=== PATIENT | male | born 1970 | race Hispanic/Latino ===

== ENCOUNTER 2018-02-12 17:11 | Inpatient (IN) | payer SELFPAY ==
[~2018-02-12] VITALS: Ht 165.1 cm; Wt 127.0 kg
[2018-02-12] MEDS ORDERED: ACETAMINOPHEN 325 MG TAB ONE (17:44)
[2018-02-12 18:34] LABS: BASOPHILS % (AUTO) 0.4 % (0.0-5.0); EOSINOPHILS % (AUTO) 0.4 % (0.0-8.0); HEMATOCRIT 40.3 % (42-54); LYMPHOCYTES % (AUTO) 13.9 % (21.0-51.0); MEAN CORPUSCULAR HGB CONC 35.6 g/dL (32.0-36.0); MONOCYTES % (AUTO) 6.7 % (3.0-13.0); NEUTROPHILS % (AUTO) 78.6 % (40.0-77.0); PLATELET COUNT (AUTO) 186 K/uL (130-400); RED CELL DISTRIBUTION WIDTH 13.1 % (11.0-15.5); WHITE BLOOD COUNT (AUTO) 10.6 K/uL (4.8-10.8)
[2018-02-12 18:53] LABS: ALBUMIN 2.9 g/dL (3.5-5.0); BILIRUBIN,TOTAL 1.2 mg/dL (0.2-1.0); CREATININE 1.4 mg/dL (0.5-1.5); POTASSIUM 4.3 mmol/L (3.5-5.1); TOTAL PROTEIN, SERUM 8.1 g/dL (6.0-8.3)
[2018-02-12 19:01] LABS: APPEARANCE,URINE Cloudy (CLEAR); BILIRUBIN,URINE Moderate (NEGATIVE); COLOR,URINE Orange (YELLOW); GLUCOSE, URINE (UA) >=1000 mg/dL (NEGATIVE); KETONES,URINE Trace mg/dL (NEGATIVE); LEUKOCYTE ESTERASE ,URINE Small (NEGATIVE); NITRATE,URINE Positive (NEGATIVE); OCCULT BLOOD,URINE Small (NEGATIVE); PROTEIN,URINE 300 (NEGATIVE)
[2018-02-12 19:16] LABS: BACTERIA,URINE Many /HPF (None Seen); YEAST,URINE BUDDING Few /HPF (None Seen)
[2018-02-12] MEDS ORDERED: CEFTRIAXONE SODIUM 1 GM ONE (20:27)
[2018-02-12 21:25] VITALS: BP 98/60
[2018-02-12] MEDS: SODIUM CHLORIDE 0.9% 1000ML 1,000 ML IV SCH (21:58)
[2018-02-12] MEDS ORDERED: LISI-613 PO (23:39)
[2018-02-12] MEDS ORDERED: GLIP1TAB6 PO (23:39)
[2018-02-12] MEDS ORDERED: ATOR20TA65 PO (23:39)
[2018-02-13] VITALS: BP 95/57
[2018-02-13] MEDS: SODIUM CHLORIDE 0.9% 1000ML 1,000 ML IV SCH ×2 (02:26→21:30)
[2018-02-13 04:00] VITALS: BP 104/68
[2018-02-13 04:57] LABS: HEMATOCRIT 35.7 % (42-54); MEAN CORPUSCULAR HEMOGLOBIN 29.4 pg (27.0-33.0); MEAN CORPUSCULAR HGB CONC 35.2 g/dL (32.0-36.0); MEAN CORPUSCULAR VOLUME 83.4 fL (79-99); NUCLEATED RED BLOOD CELLS 0.1 % (0.0-0.19); PLATELET COUNT (AUTO) 138 K/uL (130-400); RED BLOOD CELL COUNT(AUTO) 4.28 MIL/uL (4.50-6.20); RED CELL DISTRIBUTION WIDTH 12.9 % (11.0-15.5); WHITE BLOOD COUNT (AUTO) 9.5 K/uL (4.8-10.8)
[2018-02-13 05:09] LABS: CREATININE 1.2 mg/dL (0.5-1.5); POTASSIUM 4.2 mmol/L (3.5-5.1)
[2018-02-13] MEDS: INSULIN HUMULIN R 100 UNIT/ML 3ML SQ SCH ×5 (06:41→21:00)
[2018-02-13 08:00] VITALS: BP 104/66
[2018-02-13] MEDS: FAMOTIDINE 20MG TAB 20 MG TAB PO SCH ×2 (09:02→22:44)
[2018-02-13] MEDS: ENOXAPARIN SODIUM 30 MG/0.3 ML SQ SCH (09:02)
[2018-02-13 12:00] VITALS: BP 108/62
[2018-02-13 16:00] VITALS: BP 125/77
[2018-02-13 19:00] VITALS: BP 146/73
[2018-02-13] MEDS ORDERED: METF-446 PO (23:05)
[2018-02-14] VITALS: BP 112/70
[2018-02-14 04:00] VITALS: BP 113/71
[2018-02-14 05:36] LABS: CREATININE 1.1 mg/dL (0.5-1.5); POTASSIUM 3.8 mmol/L (3.5-5.1)
[2018-02-14] MEDS: INSULIN HUMULIN R 100 UNIT/ML 3ML SQ SCH ×2 (06:15→11:30)
[2018-02-14 07:00] VITALS: BP 116/67
[2018-02-14] MEDS ORDERED: METFORMIN HCL 500 MG TABLET PO SCH (08:00)
[2018-02-14] MEDS: ENOXAPARIN SODIUM 30 MG/0.3 ML SQ SCH (09:00)
[2018-02-14] MEDS: SODIUM CHLORIDE 0.9% 1000ML 1,000 ML IV SCH (09:24)
[2018-02-14] MEDS: FAMOTIDINE 20MG TAB 20 MG TAB PO SCH (09:24)
[2018-02-14 11:00] VITALS: BP 123/67
== END 2018-02-14 13:25 | disposition home or self-care (01) | DRG 641 ==
LOC: EDH 17:11 → EDHIP 17:12 → 3DH 21:07
PROVIDERS: ADMIT Internal Medicine; ATTEND Internal Medicine
DX: E87.1 Hypo-osmolality and hyponatremia (principal); B37.49 Other urogenital candidiasis; E11.9 Type 2 diabetes mellitus without complications; Z79.84 Long term (current) use of oral hypoglycemic drugs
CPT/HCPCS: 36415; 71045; 80048; 80053; 81001; 82948; 83605; 83930; 85025; 85027; 87040; 87088; 87804; 93005; J0696; J1650; J1815

== ENCOUNTER → 2023-10-26 | Outpatient (CLI) | payer OTHER ==
[~2023-10-26] MED LIST: METF-446 PO
== END | disposition home or self-care (01) ==
LOC: RAH 09:39
PROVIDERS: ATTEND Internal Medicine Cardiovascular Disease
DX: Z13.6 Encounter for screening for cardiovascular disorders (principal)
CPT/HCPCS: 75571

== ENCOUNTER 2025-03-17 18:02 | Inpatient (IN) | payer OTHER ==
[~2025-03-17] VITALS: Ht 165.1 cm; Wt 127.4 kg
[2025-03-17 18:27] LABS: IMMATURE GRANULOCYTE ABSOLUTE 0.04 K/uL (0-1); NUCLEATED RED BLOOD CELLS 0.0 % (0.0-0.19); PLATELET COUNT (AUTO) 305 K/uL (130-400); RED BLOOD CELL COUNT(AUTO) 4.40 MIL/uL (4.50-6.20); RED CELL DISTRIBUTION WIDTH 12.1 % (11.0-15.5); WHITE BLOOD COUNT (AUTO) 10.1 K/uL (4.8-10.8)
[2025-03-17 18:38] LABS: CREATININE 1.5 mg/dL (0.5-1.3); GLOMERULAR FILTR. RATE CALC 56.0 mL/min (>90); GLUCOSE,RANDOM 210.0 mg/dL (70-105); SODIUM SERUM 136.0 mmol/L (136-145); UREA NITROGEN, BLOOD 39.0 mg/dL (7-18)
[2025-03-17 18:42] LABS: ERYTHROCYTE SEDIMENTATION RATE 67 MM/HR (0-20)
--- NOTE | 2025-03-17 19:47 | ERN ---
General Chief Complaint: Wound Check Stated Complaint: WOUND CHECK Time Seen by MD: 18:05 Time Seen by Midlevel: 18:05 Source: patient History of Present Illness Initial Comments The patient is a 54-year-old male presenting to the emergency department for evaluation of worsening diabetic foot ulcers. The patient reports a chronic ulcer to his left 2nd toe that has progressively worsened. He now has noticed pain to the area and a foul odor. He also has an ulcer to the 5th toe of the right foot. Allergies: Coded Allergies: No Known Drug Allergies (Verified Allergy, Unknown, 02/13/18) Uncoded Allergies: ALMONDS (Allergy, Intermediate, SWELLING, 02/13/18) SWELLING TO THROAT AND TONGUE Home Meds Reported Medications Metformin HCl (Metformin HCl) 1,000 Mg Tablet, 1000 MG PO BIDMEALS, TAB 02/13/18 Past Medical History Past Medical History: Diabetes-Type II Past Surgical History: None ROS Dictation CONSTITUTIONAL: Negative except for HPI HEAD/FACE: Negative except for HPI EENT: Negative except for HPI RESPIRATORY: Negative except for HPI GASTROINTESTINAL/ABDOMINAL: Negative except for HPI GENITOURINARY: Negative except for HPI MUSCULOSKELETAL: Negative except for HPI INTEGUMENTARY: Negative except for HPI NEUROLOGICAL/PSYCH: Negative except for HPI HEMATOLOGIC/LYMPHATIC: Negative except for HPI All Systems Negative, Except as noted above. 13 point review of systems assessed and all negative except for above. Physical Exam Physical Exam Dictation Vital Signs reviewed General Appearance: Alert, oriented x 3, no acute distress, well developed, n ourished. Head and Face: non-traumatic. Eyes: PERRL, pink conjunctivas, eyelid no trauma, anterior chamber with arcus senilis. Ears: Pinnas intact and no signs of trauma or erythema ear canals clear and no discharge TM no erythema Nose: No discharge, no bleeding. Oropharynx: Mouth normal, tongue pink, pharynx clear,no erythema, tonsils no exudates, no abscesses noted, mucous membrane moist Neck: Supple, non-tender, no thyromegaly, no masses, no JVD, no bruits Breast:Deferred Chest:No tenderness, no crepitus, no paradoxical movement, no retractions Lungs:Clear, well-ventilated, symmetric, no rales, no wheezing, no rhonchi, no stridor, good breath sounds bilaterally Heart: Regular rate, regular rhythm, no murmur, no gallops Vascular: no peripheral edema, Abdomen: Soft, positive bowel sounds, nondistended, no guarding, nontender, no rebound, no masses no hepatomegaly, no splenomegaly, no Bernard's sign, no hernias. Rectal: Deferred Genital: Deferred Neurological: Normal speech, motor function intact, sensory function intact Musculoskeletal: Neck nontender, full range of motion, back nontender, full range of motion, Extremities: nontender, full range of motion Skin: There is an ulcer with foul older to the left 2nd toe and the right 5th toe with surrounding erythema and foul odor Lymphatic: Deferred Results Laboratory and Microbiology Lab and Micro Result Laboratory Tests Test 03/17/25 18:19 White Blood Count 10.1 K/uL (4.8-10.8) Red Blood Count 4.40 MIL/uL (4.50-6.20) L Hemoglobin 13.4 g/dL (14.0-18.0) L Hematocrit 40.9 % (42-54) L Mean Corpuscular Volume 93.0 fL (79-99) Mean Corpuscular Hemoglobin 30.5 pg (27.0-33.0) Mean Corpuscular Hemoglobin Concent 32.8 g/dL (32.0-36.0) Red Cell Distribution Width 12.1 % (11.0-15.5) Platelet Count 305 K/uL (130-400) Mean Platelet Volume 9.3 fL (7.5-10.5) Immature Granulocyte % (Auto) 0.4 % (0-1) Neutrophils (%) (Auto) 64.1 % (40.0-77.0) Lymphocytes (%) (Auto) 24.7 % (21.0-51.0) Monocytes (%) (Auto) 7.1 % (3.0-13.0) Eosinophils (%) (Auto) 3.0 % (0.0-8.0) Basophils (%) (Auto) 0.7 % (0.0-5.0) Neutrophils # (Auto) 6.5 K/uL (1.8-7.7) Lymphocytes # (Auto) 2.5 K/uL (1.0-4.8) Monocytes # (Auto) 0.7 K/uL (0.1-1.0) Eosinophils # (Auto) 0.30 K/uL (0.00-0.70) Basophils # (Auto) 0.07 K/uL (0.00-0.20) Absolute Immature Granulocyte (auto 0.04 K/uL (0-1) Nucleated Red Blood Cells 0.0 % (0.0-0.19) Erythrocyte Sedimentation Rate 67 MM/HR (0-20) H Sodium Level 136 mmol/L (136-145) Potassium Level 4.6 mmol/L (3.5-5.1) Chloride Level 100 mmol/L (101-111) L Carbon Dioxide Level 25 mmol/L (21-32) Blood Urea Nitrogen 39 mg/dL (7-18) H Creatinine 1.5 mg/dL (0.5-1.3) H Glomerular Filtration Rate Calc 56 mL/min (>90) Random Glucose 210 mg/dL (70-105) H Lactic Acid Level 1.8 mmol/L (0.8-2.5) Total Calcium 8.8 mg/dL (8.5-10.1) Procalcitonin < 0.05 ng/mL (0.05-0.5) L Labs Reviewed?: Yes MDM MDM: Differential diagnosis: Osteomyelitis, uncontrolled diabetes, dehydration Rationale: Tests considered and ordered secondary to shared decision making include: Previous outside records reviewed: Old ER visits. Risk of complication and/or morbidity or mortality of patient management: None Medications-Per medication reconciliation Need for hospitalization: Patient does meet criteria for hospitalization. Need for emergency major/minor surgery: No There are no social concerns with this patient. Prescription drug management Prescriptions will include symptomatic care Patient's prior external medical records from other ER visits were reviewed by me as indicated. Prior testing and results from previous visits were reviewed. Prior tests were taken into account with medical decision making and resource utilization, independent historian/historians were used to obtain complete medic al history. I independently interpreted the test that were performed, results were reviewed by me and considered findings on radiology if ordered. Medical management and examination interpretation discussions were had by me with other qualified healthcare professionals as indicated for the patient's care. ED Course Orders Procedure Category Date Status Time Toe(S) 2+Vws Lt RAD 03/17/25 Resulted 18:09 Toe(S) 2+Vws Rt RAD 03/17/25 Resulted 18:09 Cbc With Differential LAB 03/17/25 Complete 18:09 Basic Metabolic Panel LAB 03/17/25 Complete 18:09 Lactic Acid LAB 03/17/25 Complete 18:09 Procalcitonin LAB 03/17/25 Complete 18:09 Erythrocyte Sed Rate LAB 03/17/25 Complete 18:09 Vancomycin Protocol PHA 03/17/25 In Process (Vancomycin Protocol 22:30 Cefepime Hcl 1 Gm PHA 03/17/25 In Process Vial (Maxipime 1 Gm Vi 22:30 Admit Orders ADM 03/17/25 Transmitted 22:11 Vancomycin Trough LAB 03/21/25 Verified 22:00 Vancomycin 2gm/500 Ml PHA 03/17/25 In Process Bag (Vancomycin 2g 23:00 Current Medications Medications (Trade) Dose Ordered Sig/Roula Route PRN Reason Start Time Stop Time Status Last Admin Dose Admin Cefepime HCl (MAXipime 1 GM vial) 1 gm Q12H IVPB 03/17/25 22:30 03/27/25 22:29 Vancomycin HCl 500 ml @ 125 mls/hr Q24H IV 03/17/25 23:00 03/27/25 22:59 Vancomycin HCl (Vancomycin Protocol) 1 each AD IV 03/17/25 22:30 03/31/25 22:29 Vital Signs Date Time Temp Pulse Resp B/P (MAP) Pulse Ox O2 Delivery O2 Flow Rate FiO2 03/17/25 18:04 99.1 87 16 135/69 97 Room Air DX & DISP Disposition: Inpatient Departure Impression: Primary Impression: Diabetic foot ulcer Additional Impressions: Uncontrolled diabetes mellitus with hyperglycemia, BILLY (acute kidney injury) Condition: Stable Referrals: SELF,REFERRAL (PCP) I have reviewed the case, and I agree with, Diagnosis and Plan I performed the substantive portion of the visit. I have reviewed and personally made and approve the management plan that is documented in the note by myself or the SONY. I acknowledge for responsibility for the patient's management plan. BONILLA MASON PAC Mar 17, 2025 19:47
--- NOTE | 2025-03-17 22:12 | HP ---
History of Present Illness Reason for Visit: Wounds History of Present Illness Mr. Gifford is a 54-year-old male that was seen and examined today on 03/17/2025. Patient is a good historian of personal health Patient reports that he came to the emergency department with a chief complaint of wounds. Onset is chronic. Duration is constant. Character is described as open and odorous to bilateral feet. Left foot 2nd toe, right foot 5th toe. There was no alleviating factors. Symptoms are aggravated with walking. Patient denies any associated fever or chills. Today in the emergency department CBC unremarkable, glucose 210 mg/dL, creatinine 1.5, BUN 39, no urinalysis has been collected or sent to lab, bilateral x-rays of bilateral feet show right foot arthritis. Additionally patient did not have any fever, tachycardia, tachypnea are leukocytosis FR he did not meet sepsis criteria. Past Medical History Patient History: Carcinomas SISTER Cardiovascular disease MOTHER Diabetes mellitus MOTHER Hypertension MOTHER ADDITIONAL PAST MEDICAL HISTORY: [Diabetes mellitius type2] SOCIAL HISTORY: [Negative for smoking, alcohol use, drug use. Patient lives with a sister, Dolores Gifford. Patient is typically independent of all his ADLs. Patient denies difficulty pain is bills.] SURGICAL HISTORY: [Denies] Review of Systems General: No Fever, No Chills, No Night Sweats, No Fatigue, No Malaise, No Appetite, No Other HEENT: No Head Aches, No Visual Changes, No Eye Pain, No Ear Pain, No Dysphasia, No Sinus Congestion, No Post Nasal Drip, No Sore Throat, No Other Pulmonary: No Dyspnea, No Cough, No Pleuritic Chest Pain, No Other Cardiovascular: No: Chest Pain, Palpitations, Orthopnea, Paroxysmal Noc. Dyspnea, Edema, Lt Headedness, Other Gastrointestinal: No: Nausea, Vomiting, Abdominal Pain, Diarrhea, Constipation, Melena, Hematochezia, Other Genitourinary: No Dysuria, No Frequency, No Incontinence, No Hematuria, No Retention, No Other Musculoskeletal: No: other, neck pain, shoulder pain, arm pain, back pain, hand pain, leg pain, foot pain Skin: No Urticaria, No Rash; Other (Wounds) Neurological: No: Weakness, Numbness, Incoordination, Change in speech, Confusion, Seizures, Other Allergies: Coded Allergies: No Known Drug Allergies (Verified Allergy, Unknown, 02/13/18) Uncoded Allergies: ALMONDS (Allergy, Intermediate, SWELLING, 02/13/18) SWELLING TO THROAT AND TONGUE Scheduled Metformin HCl (Metformin HCl), 1,000 MG PO BIDMEALS, (Reported) Exam Vital Signs Vital Signs Date Time Temp Pulse Resp B/P (MAP) Pulse Ox O2 Delivery O2 Flow Rate FiO2 03/17/25 18:04 99.1 87 16 135/69 97 Room Air General Appearance: Alert, Oriented X3, Cooperative, mild distress HEENT: Atraumatic, EOMI Respiratory: Clear to auscultation, Normal air movement, NL respiratory effort Cardiovascular: Regular rate, Regular rhythm, Normal S1, Normal S2 Abdominal: Normal bowel sounds, Soft, No tenderness Extremities: No edema Skin: Other (Left foot 2nd ray wound, right foot 5th ray wound) Neuro: Normal gait, Normal speech, Strength at 5/5 X4 ext, Sensation intact, Cranial nerves 3-12 NL Psych/Mental Status: Mental status NL, Mood NL, Thoughts/Content NL Assessment/Plan ASSESSMENT: [ Diabetic foot ulcers to bilateral feet, left foot 2nd ray, right foot 5th ray, POA Uncontrolled Diabetes mellitius type2, POA CKD stage IIIB, POA Right foot arthritis, POA] PLAN: [ Admit patient to medical floor as inpatient status. Place patient on telemetry monitoring. Consult Wound Care Service for evaluation and further recommendations. For now wet-to-dry dressings. Obtain wound cultures, follow up with the results Start empiric antibiotic therapy with Zosyn Check glucometer a.c. and HS Humulin R sliding scale Hemoglobin A1c in a.m. One thousand eight hundred ADA diet Avoid nephrotoxic agents when possible Renally dose all medications when possible Monitor intake and output every shift Weight patient daily As needed analgesia with hydromorphone GI prophylaxis, Protonix DVT prophylaxis, heparin ADVANCED CARE PLANNING 1. Which of the following were discussed? Hospice Care - Yes Therapeutic options - yes Advance Directives - Yes - patient states he does not have any advance directives in place at this time, however his sister can make decisions for him if he becomes unable. Other discussions - patient wishes to remain a full code at this time 2. Discussed with who? Patient 3. Voluntary nature of this service was explained to the patient? Yes 4. Amount of time spent - ___16 minutes____ 5. Reviewed by Physician? (if this service was performed by NPP) Yes This document was generated in part using voice recognition software, occasional wrong word or sound alike substitutions may have occurred due to the inherent limitations of voice recognition software. Read the chart carefully and recognize using context, where the substitutions have occurred. Although every effort was made to edit the content, transcription typist and typing errors may occur ATTESTATION BY PHYSICIAN I have seen and examined the patient. I reviewed the documentation, medical decision making, and treatment plan as noted by the mid-level provider above. I agree with the findings and plan of care. ] RUBEN TOBIN [facility] Mar 17, 2025 22:12
--- NOTE | 2025-03-17 22:13 | HMCIMG ---
EXAM: CR Toes, Right, 3 Views. CLINICAL HISTORY: Rule out osteo right 5th toe COMPARISON: None provided. FINDINGS: BONES: No acute fracture or aggressive appearing osseous lesion. Advanced osteoarthritic changes in the tibiotalar and the intertarsal joints. JOINTS: No dislocation. SOFT TISSUES: The soft tissues are unremarkable. IMPRESSION: Advanced osteoarthritic changes in the tibiotalar and the intertarsal joints. /[place]
--- NOTE | 2025-03-17 22:21 | HMCIMG ---
EXAM: CR Toes, Left, 3 Views. CLINICAL HISTORY: Rule out osteo left 2nd toe. COMPARISON: None provided. FINDINGS: BONES: No acute fracture or aggressive appearing osseous lesion. JOINTS: No dislocation. Advanced osteoarthritic changes involving tibiotalar and intertarsal joints. Plantar spur. SOFT TISSUES: The soft tissues are unremarkable. IMPRESSION: No acute osseous abnormality. Advanced osteoarthritic changes involving tibiotalar and intertarsal joints. Plantar spur. /[place]
[2025-03-17] MEDS ORDERED: VANCOMYCIN PROTOCOL PER PHARMACY IV SCH (22:30)
[2025-03-17] MEDS ORDERED: LACTULOSE 20 GM/30 ML UDCUP PO PRN (23:00)
[2025-03-17 23:01] LABS: IMMATURE GRANULOCYTE ABSOLUTE 0.04 K/uL (0-1); NUCLEATED RED BLOOD CELLS 0.0 % (0.0-0.19); PLATELET COUNT (AUTO) 320 K/uL (130-400); RED BLOOD CELL COUNT(AUTO) 4.58 MIL/uL (4.50-6.20); RED CELL DISTRIBUTION WIDTH 12.1 % (11.0-15.5); WHITE BLOOD COUNT (AUTO) 11.2 K/uL (4.8-10.8)
[2025-03-17 23:14] LABS: CREATININE 1.4 mg/dL (0.5-1.3); GLOMERULAR FILTR. RATE CALC 60.0 mL/min (>90); GLUCOSE,RANDOM 220.0 mg/dL (70-105); PHOSPHORUS 3.3 mg/dL (2.5-4.9); SODIUM SERUM 135.0 mmol/L (136-145); UREA NITROGEN, BLOOD 38.0 mg/dL (7-18)
[2025-03-17] MEDS: VANCOMYCIN 2GM/500 ML BAG 500 ML IV SCH (23:27)
[2025-03-18 01:04] LABS: APPEARANCE,URINE CLEAR (CLEAR); GLUCOSE, URINE (UA) >=1000 mg/dL (NEGATIVE); LEUKOCYTE ESTERASE ,URINE 500 Leu/uL (NEGATIVE); NITRATE,URINE NEGATIVE (NEGATIVE); OCCULT BLOOD,URINE NEGATIVE (NEGATIVE)
[2025-03-18 01:08] LABS: ADD UA MICROSCOPIC YES
[2025-03-18 01:09] LABS: SQUAMOUS EPITHELIAL CELL,UR RARE /HPF (0-2)
[2025-03-18] MEDS: ZOSYN 3.375GM +NS 50ML IV SCH (03:05)
--- NOTE | 2025-03-18 03:07 | NUR ---
PATIENT DID NOT BRING HOME MEDICATIONS
[2025-03-18 03:52] VITALS: O2SAT 98
[2025-03-18 04:00] VITALS: BP 138/71; PULSE 77; RESP 18; TEMP 98.1
[2025-03-18 05:39] LABS: CREATININE 1.3 mg/dL (0.5-1.3); GLOMERULAR FILTR. RATE CALC 66.0 mL/min (>90); GLUCOSE,RANDOM 243.0 mg/dL (70-105); PHOSPHORUS 2.8 mg/dL (2.5-4.9); SODIUM SERUM 135.0 mmol/L (136-145); UREA NITROGEN, BLOOD 34.0 mg/dL (7-18)
[2025-03-18 07:54] LABS: NUCLEATED RED BLOOD CELLS 0.0 % (0.0-0.19); PLATELET COUNT (AUTO) 306.0 K/uL (130-400); RED BLOOD CELL COUNT(AUTO) 4.21 MIL/uL (4.50-6.20); RED CELL DISTRIBUTION WIDTH 12.2 % (11.0-15.5); WHITE BLOOD COUNT (AUTO) 8.9 K/uL (4.8-10.8)
--- NOTE | 2025-03-18 13:55 | PN ---
[facility] PROGRESS NOTE Date of Service: Mar 18, 2025 Time of Service: 13:55 SUBJECTIVE: Patient is a 54-year-old male with a past medical history of diabetes mellitus type 2, hyperlipidemia, hypertension who came in complaining of Wounds on 2nd toe of left foot and the big toe toe of right foot. Per the patient he noticed the wounds on Thursday night, patient did not have any associated pain. He tried some home remedies like peroxide, rubbing alcohol and petroleum and then he wrapped it with gauze. On he went to his primary care physician who inform Dr. Romero and Dr. Romero recommended the patient come to the ER. Patient does not have any associated fevers or chills. In the emergency department the CBC was unremarkable, the glucose was at 210 mg/dL, creatinine 1.5, BUN 39, no urinalysis has been collected or sent to lab, bilateral x-rays of bilateral feet show right foot arthritis. Additionally patient did not have any fever, tachycardia, tachypnea are leukocytosis FR he did not meet sepsis criteria. Patient was admitted for bilateral lower extremity wounds. 03/18/2025: Patient was seen in the ER 18 without any family present. Patient was awake alert x3 and in no acute respiratory distress. Patient had delayed capillary refill so we ordered arterial ultrasound of the bilateral lower extremities. Came back normal and his creatinine had improved to 1.3 from 1.5 at time of admission. Urinalysis came back positive so his urine has been sent for culture along with his blood. Patient has been started on Zosyn and vancomycin while we also ordered MRI for bilateral lower extremities. Patient is hyponatremic with sodium at 135, his ESR high at 67. Further treatment is based off on his image findings. REVIEW OF SYSTEMS CONSTITUTIONAL: Denies fevers, chills, or night sweats. No unintentional weight loss reported. NEUROLOGICAL: Headache, Denies motor weakness, sensory deficit, vertigo/spinning sensation, gait abnormalities, or tremors. ENT: No hearing loss, rhinitis, rhinorrhea, hoarseness, or sore throat. CARDIOVASCULAR: Denies any exertional angina, dyspnea on exertion, orthopnea, paroxysmal nocturnal dyspnea, palpitations PULMONARY: Denies any shortness of breath, cough, phlegm/sputum, hemoptysis, pleuritic chest pain. GASTROINTESTINAL: Denies any type of dysphagia to either liquids or solids. Denies nausea, vomiting, abdominal pain, diarrhea, constipation, or changes in stool consistency or caliber. GENITOURINARY: Denies frequency, urgency, nocturia, hematuria or incontinence. ENDOCRINOLOGIC: Denies polyuria, polydipsia, polyphagia or heat/cold intolerances. DERMATOLOGIC: Denies rashes or pruritus. PHYSICAL EXAM GENERAL APPEARANCE: The patient is awake, alert, and oriented, in no acute cardiopulmonary distress. NEUROLOGICAL: Motor is 5/5 in bilateral upper and lower extremities proximal to distal. No sensory deficits. HEENT: Face is symmetric. Pupils are equal and reactive. Extraocular movements are intact. NECK: Supple. No JVD. No thyromegaly. No submental, submandibular, pre- /postauricular, occipital or supraclavicular lymphadenopathy. CHEST: Normal chest expansion. No Telemetry. LUNGS: Absence of any rales, rhonchi or any wheezing. CARDIOVASCULAR: Regular. S1 and S2 normal. No appreciable rubs, murmurs or gallops. ABDOMEN: Soft, nontender, and nondistended. There is no rebound, voluntary guarding, or rigidity. : Deferred. No Jose. EXTREMITIES: Non-edematous and not cyanotic. No clubbing. Delayed capillary refill. Pulses more prominent on right than left foot SKIN: Wounds on 2nd toe of left foot and the big toe toe of right foot Vital Signs (last 8hr) Date Time Temp Pulse Resp B/P (MAP) Pulse Ox O2 Delivery O2 Flow Rate FiO2 03/18/25 11:55 98.1 59 16 123/58 98 Room Air* 0 21 03/18/25 07:34 97.9 71 12 138/64 100 Room Air* 0 21 LABS: Current Medications Medications (Trade) Dose Ordered Sig/Roula Route PRN Reason Start Time Stop Time Status Last Admin Dose Admin Acetaminophen (TYLenol 325MG TAB) 650 mg Q6H PRN PO TEMPERATURE GREATER THAN 101.5 03/17/25 23:00 04/16/25 22:59 Cefepime HCl (MAXipime 1 GM vial) 1 gm Q12H IVPB 03/17/25 22:30 03/17/25 22:46 DC Heparin Sodium (Porcine) (HEParin 5,000 UNIT VIAL) 5,000 unit BID SQ 03/18/25 09:00 04/17/25 08:59 03/18/25 09:45 5,000 UNIT Hydralazine HCl (APRESOLine 20MG INJ) 10 mg Q6H PRN IV For:SBP above 160;DBP above 90 03/17/25 23:00 04/16/25 22:59 Hydromorphone HCl (DiLAUDid 0.5MG INJ) 0.25 mg Q4H PRN IVP SEVERE PAIN (7-10) 03/17/25 23:00 03/22/25 22:59 Insulin Human Regular (humuLIN R 100 UNIT/ML 3ML) INSULIN SLIDING SCAL... ACHS SQ 03/18/25 07:30 04/17/25 07:29 03/18/25 12:05 4 UNIT Lactulose (Constulose 20gm/ 30ml Udcup) 20 gm BID PRN PO CONSTIPATION 03/17/25 23:00 04/16/25 22:59 Ondansetron HCl (zoFRAN 4MG INJ) 4 mg Q6H PRN IV NAUSEA/VOMITING 03/17/25 23:00 04/16/25 22:59 Pantoprazole Sodium (PROTonix 40MG TAB) 40 mg DAILY PO 03/18/25 09:00 04/17/25 08:59 03/18/25 09:45 40 MG Piperacillin Sod/ Tazobactam Sod (Zosyn 3.375gm+NS 50ml) 3.375 gm Q8H IV 03/17/25 23:00 03/27/25 22:59 03/18/25 03:05 3.375 GM Vancomycin HCl 500 ml @ 125 mls/hr Q24H IV 03/17/25 23:00 03/27/25 22:59 03/17/25 23:27 125 MLS/HR Vancomycin HCl (Vancomycin Protocol) 1 each AD IV 03/17/25 22:30 03/31/25 22:29 DIAGNOSTICS / RADIOLOGY: [address] [address] IMAGING REPORT Signed PATIENT: JOSE DOTY MR#: [id number] : 1970 SEX: M AGE: 54 LOCATION: [facility] ORDER 09 STATUS: REG ER [facility] REPORT#: [id number] SERVICE 08 REASON: r/o osteo right 5th toe ORDERING PHYSICIAN: BONILLA MASON PAC PROCEDURE: TOES RT - TOE(S) 2+VWS RT EXAM: CR Toes, Right, 3 Views. CLINICAL HISTORY: Rule out osteo right 5th toe COMPARISON: None provided. FINDINGS: BONES: No acute fracture or aggressive appearing osseous lesion. Advanced osteoarthritic changes in the tibiotalar and the intertarsal joints. JOINTS: No dislocation. SOFT TISSUES: The soft tissues are unremarkable. IMPRESSION: Advanced osteoarthritic changes in the tibiotalar and the intertarsal joints. /[place] DICTATED BY: DOROTEO HEBERT Jr., MD DATE: 03/17/252311 ELECTRONICALLY SIGNED BY: DOROTEO HEBERT Jr., MD DATE: 03/17/252311 [place] [address] IMAGING REPORT Signed PATIENT: JOSE DOTY MR#: [id number] : 1970 SEX: M AGE: 54 LOCATION: [facility] ORDER 09 STATUS: REG REPORT#: [id number] SERVICE 08 REASON: r/o osteo left 2nd toe ORDERING PHYSICIAN: BONILLA MASON PAC PROCEDURE: TOES LT - TOE(S) 2+VWS LT EXAM: CR Toes, Left, 3 Views. CLINICAL HISTORY: Rule out osteo left 2nd toe. COMPARISON: None provided. FINDINGS: BONES: No acute fracture or aggressive appearing osseous lesion. JOINTS: No dislocation. Advanced osteoarthritic changes involving tibiotalar and intertarsal joints. Plantar spur. SOFT TISSUES: The soft tissues are unremarkable. IMPRESSION: No acute osseous abnormality. Advanced osteoarthritic changes involving tibiotalar and intertarsal joints. Plantar spur. /[place] DICTATED BY: DOROTEO HEBERT Jr., MD DATE: 03/17/252319 ELECTRONICALLY SIGNED BY: DOROTEO HEBERT Jr., MD DATE: 03/17/252319 ASSESSMENT: Diabetic foot ulcers to bilateral feet, left foot 2nd toe, right foot big toe, POA Uncontrolled Diabetes mellitius type2, POA CKD stage IIIB, POA UTI, POA Right foot arthritis, POA] PLAN: Diabetic foot ulcers to bilateral feet, left foot 2nd toe, right foot big toe, POA * Patient has foot ulcers to bilateral feet, left foot 2nd toe, right foot big toe, POA * Patient's foot x-rays came back negative * MRI has been ordered * Wound care already on the case Uncontrolled Diabetes mellitius type2, POA * Patient's random glucose is at 243, his A1c is at 7.9 * Patient on insulin sliding scale CKD stage IIIB, POA: * Patient's creatinine on admission was 1.5 But it has improved to 1.3 * Patient's GFR at 66 UTI, POA * Patient's urinalysis urinalysis came back positive * Patient is on vancomycin and Zosyn * Urine culture in progress On GI protocol prophylaxis with pantoprazole 40 mg p.o. On DVT prophylaxis with heparin sodium 5000 units subQ We will request labs in am Further orders to follow depending on above results ATTESTATION BY PHYSICIAN I have seen and examined the patient. I reviewed the documentation, medical decision making, and treatment plan as noted by the resident physician above. I agree with the findings and plan of care. Leroy Urbano IV, MD, ABHINAV MD Mar 18, 2025 13:55
[2025-03-18] MEDS ORDERED: ROSU10TA98 PO (16:28)
[2025-03-18] MEDS ORDERED: METO50TA18 PO (16:28)
[2025-03-18] MEDS ORDERED: TOPI-258 PO (16:28)
[2025-03-18] MEDS ORDERED: DAPA10TA PO (16:28)
[2025-03-18] MEDS ORDERED: LOSA1TAB54 PO (16:28)
[2025-03-18] MEDS ORDERED: ASPI-1005 PO (16:28)
--- NOTE | 2025-03-18 17:19 | NUR ---
REPORT GIVEN TO DEWAYNE ANSARI , RADHA SENT WITH PATIENT
[2025-03-18 17:30] VITALS: BP 130/68; PULSE 68; RESP 16; TEMP 98
[2025-03-18 17:41] VITALS: O2SAT 97
[2025-03-18 20:00] VITALS: O2SAT 98
[2025-03-18 21:24] VITALS: BP 125/47; PULSE 80; RESP 16; TEMP 98.2
[2025-03-19] VITALS (9 sets, daily range): BP systolic 118–135; BP diastolic 56–77; PULSE 62–73; RESP 16–19; TEMP 97.6–98.4; O2SAT 98–99
--- NOTE | 2025-03-19 00:24 | HMCIMG ---
EXAM: Bilateral lower extremity arterial duplex ultrasound HISTORY: Peripheral arterial disease. TECHNIQUE: Duplex Doppler ultrasound evaluation of the bilateral lower extremity arterial system was performed with grayscale imaging, color Doppler, and spectral waveform analysis. Peak systolic velocities were obtained at standard arterial segments. FINDINGS: Right lower extremity: The common femoral artery demonstrates a peak systolic velocity of 140 cm/sec with triphasic waveform. The proximal superficial femoral artery demonstrates a peak systolic velocity of 169 cm/sec with triphasic waveform consistent with 2049% stenosis. The mid superficial femoral artery demonstrates a peak systolic velocity of 196 cm/sec with triphasic waveform. The distal superficial femoral artery demonstrates a peak systolic velocity of 120 cm/sec with triphasic waveform. The proximal popliteal artery demonstrates a peak systolic velocity of 52 cm/sec with triphasic waveform. The distal popliteal artery demonstrates a peak systolic velocity of 163 cm/sec with triphasic waveform consistent with 2049% stenosis. The posterior tibial artery demonstrates a peak systolic velocity of 79 cm/sec with triphasic waveform. The distal anterior tibial artery demonstrates a peak systolic velocity of 94 cm/sec with biphasic waveform. The dorsalis pedis artery demonstrates a peak systolic velocity of 133 cm/sec with monophasic waveform. Left lower extremity: The common femoral artery demonstrates a peak systolic velocity of 184 cm/sec with triphasic waveform. The proximal superficial femoral artery demonstrates a peak systolic velocity of 138 cm/sec with triphasic waveform. The mid superficial femoral artery demonstrates a peak systolic velocity of 206 cm/sec with triphasic waveform consistent with 5080% stenosis. The distal superficial femoral artery demonstrates a peak systolic velocity of 98 cm/sec with triphasic waveform. The proximal popliteal artery demonstrates a peak systolic velocity of 108 cm/sec with triphasic waveform. The distal popliteal artery demonstrates a peak systolic velocity of 145 cm/sec with triphasic waveform. The posterior tibial artery demonstrates a peak systolic velocity of 51 cm/sec with biphasic waveform. The distal anterior tibial artery demonstrates a peak systolic velocity of 67 cm/sec with triphasic waveform. The dorsalis pedis artery demonstrates a peak systolic velocity of 78 cm/sec with triphasic waveform. Additional findings: A left popliteal fossa Bakers cyst is present measuring 5.1 x 5.3 x 1.4 cm. IMPRESSION: * Mild to moderate bilateral peripheral arterial disease. * Right lower extremity with 2049% stenosis of the proximal superficial femoral artery and distal popliteal artery with distal small-vessel disease evidenced by monophasic dorsalis pedis waveform. * Left lower extremity with hemodynamically significant 5080% stenosis of the mid superficial femoral artery. * Incidental left Bakers cyst. RECOMMENDATIONS: Clinical correlation with ankle-brachial index is recommended. In accordance with ACR, SVS, and IAC guidelines, conservative management is appropriate if symptoms are stable. Vascular surgery or endovascular consultation may be considered if symptoms are lifestyle-limiting, progressive, or if HAILEY is significantly abnormal. No emergent intervention is indicated based on duplex findings alone. /[place]'Kean
[2025-03-19 03:55] LABS: NUCLEATED RED BLOOD CELLS 0.0 % (0.0-0.19); PLATELET COUNT (AUTO) 305.0 K/uL (130-400); RED BLOOD CELL COUNT(AUTO) 4.11 MIL/uL (4.50-6.20); RED CELL DISTRIBUTION WIDTH 12.0 % (11.0-15.5); WHITE BLOOD COUNT (AUTO) 8.4 K/uL (4.8-10.8)
[2025-03-19 04:34] LABS: ASPARTATE AMINOTRANSFERASE 11.0 U/L (10-37); CREATININE 1.3 mg/dL (0.5-1.3); GLOMERULAR FILTR. RATE CALC 66.0 mL/min (>90); GLUCOSE,RANDOM 219.0 mg/dL (70-105); SODIUM SERUM 135.0 mmol/L (136-145); TOTAL PROTEIN, SERUM 7.8 g/dL (6.0-8.3); UREA NITROGEN, BLOOD 28.0 mg/dL (7-18)
--- NOTE | 2025-03-19 15:35 | NUR ---
HAD NOTIFIED DR PURDY OF WC CONSULT
--- NOTE | 2025-03-19 16:09 | NUR ---
CALLED TO [facility] ANSWERING SERVICE FOR DR Cesilia HENSLEY FOR CONSULTATION . PER ANSWERING SERVICE WILL PAGE MD . PENDING CALL BACK
--- NOTE | 2025-03-19 17:55 | PN ---
[facility] PROGRESS NOTE Date of Service: Mar 19, 2025 Time of Service: 17:45 SUBJECTIVE: Patient is a 54-year-old male with a past medical history of diabetes mellitus type 2, hyperlipidemia, hypertension who came in complaining of Wounds on 2nd toe of left foot and the big toe toe of right foot. Per the patient he noticed the wounds on Thursday night, patient did not have any associated pain. He tried some home remedies like peroxide, rubbing alcohol and petroleum and then he wrapped it with gauze. On he went to his primary care physician who inform Dr. Romero and Dr. Romero recommended the patient come to the ER. Patient does not have any associated fevers or chills. In the emergency department the CBC was unremarkable, the glucose was at 210 mg/dL, creatinine 1.5, BUN 39, no urinalysis has been collected or sent to lab, bilateral x-rays of bilateral feet show right foot arthritis. Additionally patient did not have any fever, tachycardia, tachypnea are leukocytosis FR he did not meet sepsis criteria. Patient was admitted for bilateral lower extremity wounds. 03/18/2025: Patient was seen in the ER 18 without any family present. Patient was awake alert x3 and in no acute respiratory distress. Patient had delayed capillary refill so we ordered arterial ultrasound of the bilateral lower extremities. Came back normal and his creatinine had improved to 1.3 from 1.5 at time of admission. Urinalysis came back positive so his urine has been sent for culture along with his blood. Patient has been started on Zosyn and vancomycin while we also ordered MRI for bilateral lower extremities. Patient is hyponatremic with sodium at 135, his ESR high at 67. Further treatment is based off on his image findings. 03/19/2025: Patient is seen and evaluated in the room 417. He has no symptoms today. Her vital signs are in the normal range. Her labs are normal except for hemoglobin is 12.7, sodium is 135, BUN is 28, glucose is 185. urine culture grew 10,000 to 50,000 CFU, mixed octavio contamination present. We ordered arterial US and it showed right lower extremity with 2049% stenosis of the proximal superficial femoral artery and distal popliteal artery with distal small-vessel disease evidenced by monophasic dorsalis pedis waveform, left lower extremity with hemodynamically significant 5080% stenosis of the mid superficial femoral artery. So we consulted cardiology and we are waiting for their recommendations. We are awaiting the results of MRI, aerobic and anaerobic cultures. REVIEW OF SYSTEMS CONSTITUTIONAL: Denies fevers, chills, or night sweats. No unintentional weight loss reported. NEUROLOGICAL: Headache, Denies motor weakness, sensory deficit, vertigo/spinning sensation, gait abnormalities, or tremors. ENT: No hearing loss, rhinitis, rhinorrhea, hoarseness, or sore throat. CARDIOVASCULAR: Denies any exertional angina, dyspnea on exertion, orthopnea, paroxysmal nocturnal dyspnea, palpitations PULMONARY: Denies any shortness of breath, cough, phlegm/sputum, hemoptysis, pleuritic chest pain. GASTROINTESTINAL: Denies any type of dysphagia to either liquids or solids. Denies nausea, vomiting, abdominal pain, diarrhea, constipation, or changes in stool consistency or caliber. GENITOURINARY: Denies frequency, urgency, nocturia, hematuria or incontinence. ENDOCRINOLOGIC: Denies polyuria, polydipsia, polyphagia or heat/cold intolerances. DERMATOLOGIC: Denies rashes or pruritus. PHYSICAL EXAM GENERAL APPEARANCE: The patient is awake, alert, and oriented, in no acute cardiopulmonary distress. NEUROLOGICAL: Motor is 5/5 in bilateral upper and lower extremities proximal to distal. No sensory deficits. HEENT: Face is symmetric. Pupils are equal and reactive. Extraocular movements are intact. NECK: Supple. No JVD. No thyromegaly. No submental, submandibular, pre- /postauricular, occipital or supraclavicular lymphadenopathy. CHEST: Normal chest expansion. No Telemetry. LUNGS: Absence of any rales, rhonchi or any wheezing. CARDIOVASCULAR: Regular. S1 and S2 normal. No appreciable rubs, murmurs or gallops. ABDOMEN: Soft, nontender, and nondistended. There is no rebound, voluntary gua rding, or rigidity. : Deferred. No Jose. EXTREMITIES: Non-edematous and not cyanotic. No clubbing. Delayed capillary refill. Pulses more prominent on right than left foot SKIN: Wounds on 2nd toe of left foot and the big toe toe of right foot Vital Signs (last 8hr) Date Time Temp Pulse Resp B/P (MAP) Pulse Ox O2 Delivery O2 Flow Rate FiO2 03/19/25 16:40 97.9 64 19 135/77 99 Room Air 03/19/25 16:32 97.9 64 19 135/77 99 Room Air 03/19/25 12:37 98.4 73 19 130/65 99 Room Air LABS: Laboratory: Test 03/19/25 15:29 03/19/25 03:44 03/18/25 04:59 03/18/25 00:46 Range/Units Whole Blood Glucose 185 H 70-110 MG/DL White Blood Count 8.4 4.8-10.8 K/uL Red Blood Count 4.11 L 4.50-6.20 MIL/uL Hemoglobin 12.7 L 14.0-18.0 g/dL Hematocrit 38.5 L 42-54 % Mean Corpuscular Volume 93.7 79-99 fL Mean Corpuscular Hemoglobin 30.9 27.0-33.0 pg Mean Corpuscular Hemoglobin Concent 33.0 32.0-36.0 g/dL Red Cell Distribution Width 12.0 11.0-15.5 % Platelet Count 305 130-400 K/uL Mean Platelet Volume 9.3 7.5-10.5 fL Nucleated Red Blood Cells 0.0 0.0-0.19 % Sodium Level 135 L 136-145 mmol/L Potassium Level 4.3 3.5-5.1 mmol/L Chloride Level 103 101-111 mmol/L Carbon Dioxide Level 24 21-32 mmol/L Blood Urea Nitrogen 28 H 7-18 mg/dL Creatinine 1.3 0.5-1.3 mg/dL Glomerular Filtration Rate Calc 66 >90 mL/min Random Glucose 219 H 70-105 mg/dL Total Calcium 8.4 L 8.5-10.1 mg/dL Total Bilirubin 0.5 0.2-1.0 mg/dL Aspartate Amino Transf (AST/SGOT) 11 10-37 U/L Alanine Aminotransferase (ALT/SGPT) 15 12-78 U/L Alkaline Phosphatase 79 50-136 U/L Total Protein 7.8 6.0-8.3 g/dL Albumin 2.9 L 3.5-5.0 g/dL Phosphorus Level 2.8 2.5-4.9 mg/dL Magnesium Level 2.30 1.80-2.40 mg/dL Urine Color LIGHT-YELLOW YELLOW Urine Appearance CLEAR CLEAR Urine pH 5.5 5.0-8.0 Urine Specific [place] 1.025 1.001-1.031 Urine Protein 10 H NEGATIVE mg/dL Urine Glucose (UA) >=1000 H NEGATIVE mg/dL Urine Ketones NEGATIVE NEGATIVE mg/dL Urine Occult Blood NEGATIVE NEGATIVE Urine Nitrate NEGATIVE NEGATIVE Urine Bilirubin NEGATIVE NEGATIVE mg/dL Urine Urobilinogen 0.2 0.2-1.0 mg/dL Urine Leukocyte Esterase 500 H NEGATIVE Mario Alberto/uL Urine RBC 11-25 H 0-1 /HPF Urine WBC 26-50 H 0-1 /HPF Urine Squamous Epithelial Cells RARE 0-2 /HPF Urine Bacteria RARE None Seen /HPF Test 03/17/25 22:50 03/17/25 18:19 Range/Units Immature Granulocyte % (Auto) 0.4 0-1 % Neutrophils (%) (Auto) 65.1 40.0-77.0 % Lymphocytes (%) (Auto) 24.5 21.0-51.0 % Monocytes (%) (Auto) 6.3 3.0-13.0 % Eosinophils (%) (Auto) 3.3 0.0-8.0 % Basophils (%) (Auto) 0.4 0.0-5.0 % Neutrophils # (Auto) 7.3 1.8-7.7 K/uL Lymphocytes # (Auto) 2.7 1.0-4.8 K/uL Monocytes # (Auto) 0.7 0.1-1.0 K/uL Eosinophils # (Auto) 0.37 0.00-0.70 K/uL Basophils # (Auto) 0.04 0.00-0.20 K/uL Absolute Immature Granulocyte (auto 0.04 0-1 K/uL Hemoglobin A1c 7.9 H 4.0-6.0 % Estimated Average Glucose (eAG) 180 H 70-126 mg/dL Erythrocyte Sedimentation Rate 67 H 0-20 MM/HR Lactic Acid Level 1.8 0.8-2.5 mmol/L Procalcitonin < 0.05 L 0.05-0.5 ng/mL Current Medications Medications (Trade) Dose Ordered Sig/[place]a Route PRN Reason Start Time Stop Time Status Last Admin Dose Admin Acetaminophen (TYLenol 325MG TAB) 650 mg Q6H PRN PO TEMPERATURE GREATER THAN 101.5 03/17/25 23:00 04/16/25 22:59 Aspirin (Aspirin 81mg Chew Tab) 81 mg DAILY PO 03/20/25 09:00 04/19/25 08:59 Atorvastatin Calcium (LIPItor 40MG) 40 mg HS PO 03/19/25 21:00 04/18/25 20:59 Cefepime HCl (MAXipime 1 GM vial) 1 gm Q12H IVPB 03/17/25 22:30 03/17/25 22:46 DC HCTZ/Losartan Potassium (Hyzaar 50-12.5 Tablet) 2 tab DAILY PO 03/20/25 09:00 04/19/25 08:59 Heparin Sodium (Porcine) (HEParin 5,000 UNIT VIAL) 5,000 unit BID SQ 03/18/25 09:00 04/17/25 08:59 03/19/25 08:59 5,000 UNIT Hydralazine HCl (APRESOLine 20MG INJ) 10 mg Q6H PRN IV For:SBP above 160;DBP above 90 03/17/25 23:00 04/16/25 22:59 Hydromorphone HCl (DiLAUDid 0.5MG INJ) 0.25 mg Q4H PRN IVP SEVERE PAIN (7-10) 03/17/25 23:00 03/22/25 22:59 Insulin Human Regular (humuLIN R 100 UNIT/ML 3ML) INSULIN SLIDING SCAL... ACHS SQ 03/18/25 07:30 04/17/25 07:29 03/19/25 17:31 4 UNIT Lactulose (Constulose 20gm/ 30ml Udcup) 20 gm BID PRN PO CONSTIPATION 03/17/25 23:00 04/16/25 22:59 Metoprolol Tartrate (loprESSOR) 50 mg BID PO 03/19/25 21:00 04/18/25 20:59 Ondansetron HCl (zoFRAN 4MG INJ) 4 mg Q6H PRN IV NAUSEA/VOMITING 03/17/25 23:00 04/16/25 22:59 Pantoprazole Sodium (PROTonix 40MG TAB) 40 mg DAILY PO 03/18/25 09:00 04/17/25 08:59 03/19/25 09:00 40 MG Piperacillin Sod/ Tazobactam Sod (Zosyn 3.375gm+NS 50ml) 3.375 gm Q8H IV 03/17/25 23:00 03/27/25 22:59 03/19/25 17:32 3.375 GM Topiramate (TopaMAX) 100 mg BID PO 03/19/25 21:00 04/18/25 20:59 Vancomycin HCl 500 ml @ 125 mls/hr Q24H IV 03/17/25 23:00 03/27/25 22:59 03/18/25 21:45 125 MLS/HR Vancomycin HCl (Vancomycin Protocol) 1 each AD IV 03/17/25 22:30 03/31/25 22:29 DIAGNOSTICS / RADIOLOGY: [facility] [address] [place] [address] IMAGING REPORT Signed PATIENT: JOSE DOTY MR#: [id number] : 1970 SEX: M AGE: 54 LOCATION: [facility] ORDER 135 [facility]: [facility] REPORT#: [id number] SERVICE [id number] REASON: PAD ORDERING PHYSICIAN: LINDA HOWARD MD PROCEDURE: ART B LE - US ARTERIAL BILAT LOW EXT DUPL EXAM: Bilateral lower extremity arterial duplex ultrasound HISTORY: Peripheral arterial disease. TECHNIQUE: Duplex Doppler ultrasound evaluation of the bilateral lower extremity arterial system was performed with grayscale imaging, color Doppler, and spectral waveform analysis. Peak systolic velocities were obtained at standard arterial segments. FINDINGS: Right lower extremity: The common femoral artery demonstrates a peak systolic velocity of 140 cm/sec with triphasic waveform. The proximal superficial femoral artery demonstrates a peak systolic velocity of 169 cm/sec with triphasic waveform consistent with 2049% stenosis. The mid superficial femoral artery demonstrates a peak systolic velocity of 196 cm/sec with triphasic waveform. The distal superficial femoral artery demonstrates a peak systolic velocity of 120 cm/sec with triphasic waveform. The proximal popliteal artery demonstrates a peak systolic velocity of 52 cm/sec with triphasic waveform. The distal popliteal artery demonstrates a peak systolic velocity of 163 cm/sec with triphasic waveform consistent with 2049% stenosis. The posterior tibial artery demonstrates a peak systolic velocity of 79 cm/sec with triphasic waveform. The distal anterior tibial artery demonstrates a peak systolic velocity of 94 cm/sec with biphasic waveform. The dorsalis pedis artery demonstrates a peak systolic velocity of 133 cm/sec with monophasic waveform. Left lower extremity: The common femoral artery demonstrates a peak systolic velocity of 184 cm/sec with triphasic waveform. The proximal superficial femoral artery demonstrates a peak systolic velocity of 138 cm/sec with triphasic waveform. The mid superficial femoral artery demonstrates a peak systolic velocity of 206 cm/sec with triphasic waveform consistent with 5080% stenosis. The distal superficial femoral artery demonstrates a peak systolic velocity of 98 cm/sec with triphasic waveform. The proximal popliteal artery demonstrates a peak systolic velocity of 108 cm/sec with triphasic waveform. The distal popliteal artery demonstrates a peak systolic velocity of 145 cm/sec with triphasic waveform. The posterior tibial artery demonstrates a peak systolic velocity of 51 cm/sec with biphasic waveform. The distal anterior tibial artery demonstrates a peak systolic velocity of 67 cm/sec with triphasic waveform. The dorsalis pedis artery demonstrates a peak systolic velocity of 78 cm/sec with triphasic waveform. Additional findings: A left popliteal fossa Bakers cyst is present measuring 5.1 x 5.3 x 1.4 cm. IMPRESSION: * Mild to moderate bilateral peripheral arterial disease. * Right lower extremity with 2049% stenosis of the proximal superficial femoral artery and distal popliteal artery with distal small-vessel disease evidenced by monophasic dorsalis pedis waveform. * Left lower extremity with hemodynamically significant 5080% stenosis of the mid superficial femoral artery. * Incidental left Bakers cyst. RECOMMENDATIONS: Clinical correlation with ankle-brachial index is recommended. In accordance with ACR, SVS, and IAC guidelines, conservative management is appropriate if symptoms are stable. Vascular surgery or endovascular consultation may be considered if symptoms are lifestyle-limiting, progressive, or if HAILEY is significantly abnormal. No emergent intervention is indicated based on duplex findings alone. /[place] DICTATED BY: CARLY MILLER MD DATE: 03/19/25122 ELECTRONICALLY SIGNED BY: CARLY MILLER MD DATE: 03/19/25122 ASSESSMENT: Diabetic foot ulcers to bilateral feet, left foot 2nd toe, right foot big toe, POA Stenosis of the lower limb arteries, POA Uncontrolled Diabetes mellitius type2, POA CKD stage IIIB, POA UTI, POA Right foot arthritis, POA] PLAN: Diabetic foot ulcers to bilateral feet, left foot 2nd toe, right foot big toe, POA * Patient has foot ulcers to bilateral feet, left foot 2nd toe, right foot big toe, POA * Patient's foot x-rays came back negative * MRI has been ordered * Wound care already on the case Stenosis of the lower limb arteries, POA * We ordered arterial US and it showed right lower extremity with 2049% stenosis of the proximal superficial femoral artery and distal popliteal artery with distal small-vessel disease evidenced by monophasic dorsalis pedis waveform, left lower extremity with hemodynamically significant 5080% stenosis of the mid superficial femoral artery. So we consulted cardiology and we are waiting for their recommendations. Uncontrolled Diabetes mellitius type2, POA * Patient's random glucose is at 243, his A1c is at 7.9 * Patient on insulin sliding scale CKD stage IIIB, POA: * Patient's creatinine on admission was 1.5 But it has improved to 1.3 * Patient's GFR at 66 UTI, POA * Patient's urinalysis urinalysis came back positive * Patient is on vancomycin and Zosyn * Urine culture in progress On GI protocol prophylaxis with pantoprazole 40 mg p.o. On DVT prophylaxis with heparin sodium 5000 units subQ We will request labs in am Further orders to follow depending on above results ATTESTATION BY PHYSICIAN I have seen and examined the patient. I reviewed the documentation, medical decision making, and treatment plan as noted by the resident physician above. I agree with the findings and plan of care. JEM Amezquita IV, MD, MD Mar 19, 2025 17:55
[2025-03-20] VITALS (10 sets, daily range): BP systolic 96–143; BP diastolic 50–72; PULSE 57–69; RESP 16–19; TEMP 97.8–98.9; O2SAT 98–100
[2025-03-20 06:10] LABS: NUCLEATED RED BLOOD CELLS 0.0 % (0.0-0.19); PLATELET COUNT (AUTO) 305.0 K/uL (130-400); RED BLOOD CELL COUNT(AUTO) 4.1 MIL/uL (4.50-6.20); RED CELL DISTRIBUTION WIDTH 11.9 % (11.0-15.5); WHITE BLOOD COUNT (AUTO) 7.6 K/uL (4.8-10.8)
[2025-03-20 06:26] LABS: CREATININE 1.1 mg/dL (0.5-1.3); GLOMERULAR FILTR. RATE CALC 81.0 mL/min (>90); GLUCOSE,RANDOM 168.0 mg/dL (70-105); SODIUM SERUM 137.0 mmol/L (136-145); UREA NITROGEN, BLOOD 20.0 mg/dL (7-18)
[2025-03-20] MEDS: ASPIRIN 81MG CHEW TAB PO SCH (08:57)
[2025-03-20] MEDS: LOSARTAN/HYDROCHLOROTHIAZIDE 50-12.5MG TABLET PO SCH (09:00)
--- NOTE | 2025-03-20 10:14 | NUR ---
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 Pt states he is on his feet 12 + hours a day. Pt and sister Dolores Gifford [phone] live together in home their brother left them. No issues affording home or food. Prior to admission, pt was independent, drove and used no DME or in home care services.Pt no certain what dc needs will be, hopeful he can return home at co. PCP is Byron Weiner, uses [facility] for rx.
--- NOTE | 2025-03-20 10:26 | PN ---
[facility] PROGRESS NOTE Date of Service: Mar 20, 2025 Time of Service: 10:26 SUBJECTIVE: Patient is a 54-year-old male with a past medical history of diabetes mellitus type 2, hyperlipidemia, hypertension who came in complaining of Wounds on 2nd toe of left foot and the big toe toe of right foot. Per the patient he noticed the wounds on Thursday night, patient did not have any associated pain. He tried some home remedies like peroxide, rubbing alcohol and petroleum and then he wrapped it with gauze. On he went to his primary care physician who inform Dr. Romero and Dr. Romero recommended the patient come to the ER. Patient does not have any associated fevers or chills. In the emergency department the CBC was unremarkable, the glucose was at 210 mg/dL, creatinine 1.5, BUN 39, no urinalysis has been collected or sent to lab, bilateral x-rays of bilateral feet show right foot arthritis. Additionally patient did not have any fever, tachycardia, tachypnea are leukocytosis FR he did not meet sepsis criteria. Patient was admitted for bilateral lower extremity wounds. 03/18/2025: Patient was seen in the ER 18 without any family present. Patient was awake alert x3 and in no acute respiratory distress. Patient had delayed capillary refill so we ordered arterial ultrasound of the bilateral lower extremities. Came back normal and his creatinine had improved to 1.3 from 1.5 at time of admission. Urinalysis came back positive so his urine has been sent for culture along with his blood. Patient has been started on Zosyn and vancomycin while we also ordered MRI for bilateral lower extremities. Patient is hyponatremic with sodium at 135, his ESR high at 67. Further treatment is based off on his image findings. 03/19/2025: Patient is seen and evaluated in the room 417. He has no symptoms today. Her vital signs are in the normal range. Her labs are normal except for hemoglobin is 12.7, sodium is 135, BUN is 28, glucose is 185. urine culture grew 10,000 to 50,000 CFU, mixed octavio contamination present. We ordered arterial US and it showed right lower extremity with 2049% stenosis of the proximal superficial femoral artery and distal popliteal artery with distal small-vessel disease evidenced by monophasic dorsalis pedis waveform, left lower extremity with hemodynamically significant 5080% stenosis of the mid superficial femoral artery. So we consulted cardiology and we are waiting for their recommendations. We are awaiting the results of MRI, aerobic and anaerobic cultures. 03/20/2025: Patient is seen and evaluated in the room 417. He has no new complaints. Final urine culture came back negative. Patient's aerobic culture showed staph aureus still waiting on sensitivity. Patient already on Zosyn & vancomycin. Still waiting for the MRI. As the patient is Dr. Estrada's patient we discontinued wound care and consulted him instead. We are still waiting for Cardiology. REVIEW OF SYSTEMS CONSTITUTIONAL: Denies fevers, chills, or night sweats. No unintentional weight loss reported. NEUROLOGICAL: Denies headache, motor weakness, sensory deficit, vertigo/spinning sensation, gait abnormalities, or tremors. ENT: No hearing loss, rhinitis, rhinorrhea, hoarseness, or sore throat. CARDIOVASCULAR: Denies any exertional angina, dyspnea on exertion, orthopnea, paroxysmal nocturnal dyspnea, palpitations PULMONARY: Denies any shortness of breath, cough, phlegm/sputum, hemoptysis, pleuritic chest pain. GASTROINTESTINAL: Denies any type of dysphagia to either liquids or solids. Denies nausea, vomiting, abdominal pain, diarrhea, constipation, or changes in stool consistency or caliber. GENITOURINARY: Denies frequency, urgency, nocturia, hematuria or incontinence. ENDOCRINOLOGIC: Denies polyuria, polydipsia, polyphagia or heat/cold intolerances. DERMATOLOGIC: Wounds on 2nd toe of left foot and the big toe toe of right foot PHYSICAL EXAM GENERAL APPEARANCE: The patient is awake, alert, and oriented, in no acute cardiopulmonary distress. NEUROLOGICAL: Motor is 5/5 in bilateral upper and lower extremities proximal to distal. No sensory deficits. HEENT: Face is symmetric. Pupils are equal and reactive. Extraocular movements are intact. NECK: Supple. No JVD. No thyromegaly. No submental, submandibular, pre- /postauricular, occipital or supraclavicular lymphadenopathy. CHEST: Normal chest expansion. No Telemetry. LUNGS: Absence of any rales, rhonchi or any wheezing. CARDIOVASCULAR: Regular. S1 and S2 normal. No appreciable rubs, murmurs or gallops. ABDOMEN: Soft, nontender, and nondistended. There is no rebound, voluntary guarding, or rigidity. : Deferred. No Jose. EXTREMITIES: Non-edematous and not cyanotic. No clubbing. Delayed capillary refill. Pulses more prominent on right than left foot SKIN: Wounds on 2nd toe of left foot and the big toe toe of right foot Vital Signs (last 8hr) Date Time Temp Pulse Resp B/P (MAP) Pulse Ox O2 Delivery O2 Flow Rate FiO2 03/20/25 08:03 99.0 61 18 143/72 98 Room Air 03/20/25 04:23 97.9 61 16 130/62 98 Room Air LABS: Laboratory: Test 03/20/25 05:40 03/20/25 05:19 03/19/25 03:44 Range/Units White Blood Count 7.6 4.8-10.8 K/uL Red Blood Count 4.10 L 4.50-6.20 MIL/uL Hemoglobin 12.6 L 14.0-18.0 g/dL Hematocrit 38.2 L 42-54 % Mean Corpuscular Volume 93.2 79-99 fL Mean Corpuscular Hemoglobin 30.7 27.0-33.0 pg Mean Corpuscular Hemoglobin Concent 33.0 32.0-36.0 g/dL Red Cell Distribution Width 11.9 11.0-15.5 % Platelet Count 305 130-400 K/uL Mean Platelet Volume 9.5 7.5-10.5 fL Nucleated Red Blood Cells 0.0 0.0-0.19 % Sodium Level 137 136-145 mmol/L Potassium Level 4.5 3.5-5.1 mmol/L Chloride Level 105 101-111 mmol/L Carbon Dioxide Level 24 21-32 mmol/L Blood Urea Nitrogen 20 H 7-18 mg/dL Creatinine 1.1 0.5-1.3 mg/dL Glomerular Filtration Rate Calc 81 >90 mL/min Random Glucose 168 H 70-105 mg/dL Total Calcium 8.3 L 8.5-10.1 mg/dL Whole Blood Glucose 183 H 70-110 MG/DL Total Bilirubin 0.5 0.2-1.0 mg/dL Aspartate Amino Transf (AST/SGOT) 11 10-37 U/L Alanine Aminotransferase (ALT/SGPT) 15 12-78 U/L Alkaline Phosphatase 79 50-136 U/L Total Protein 7.8 6.0-8.3 g/dL Albumin 2.9 L 3.5-5.0 g/dL Current Medications Medications (Trade) Dose Ordered Sig/Roula Route PRN Reason Start Time Stop Time Status Last Admin Dose Admin Acetaminophen (TYLenol 325MG TAB) 650 mg Q6H PRN PO TEMPERATURE GREATER THAN 101.5 03/17/25 23:00 04/16/25 22:59 Aspirin (Aspirin 81mg Chew Tab) 81 mg DAILY PO 03/20/25 09:00 04/19/25 08:59 03/20/25 08:57 81 MG Atorvastatin Calcium (LIPItor 40MG) 40 mg HS PO 03/19/25 21:00 04/18/25 20:59 03/19/25 21:00 40 MG Cefepime HCl (MAXipime 1 GM vial) 1 gm Q12H IVPB 03/17/25 22:30 03/17/25 22:46 DC HCTZ/Losartan Potassium (Hyzaar 50-12.5 Tablet) 2 tab DAILY PO 03/20/25 09:00 04/19/25 08:59 03/20/25 09:00 2 TAB Heparin Sodium (Porcine) (HEParin 5,000 UNIT VIAL) 5,000 unit BID SQ 03/18/25 09:00 04/17/25 08:59 03/20/25 09:00 5,000 UNIT Hydralazine HCl (APRESOLine 20MG INJ) 10 mg Q6H PRN IV For:SBP above 160;DBP above 90 03/17/25 23:00 04/16/25 22:59 Hydromorphone HCl (DiLAUDid 0.5MG INJ) 0.25 mg Q4H PRN IVP SEVERE PAIN (7-10) 03/17/25 23:00 03/22/25 22:59 Insulin Human Regular (humuLIN R 100 UNIT/ML 3ML) INSULIN SLIDING SCAL... ACHS SQ 03/18/25 07:30 04/17/25 07:29 03/20/25 08:07 4 UNIT Lactulose (Constulose 20gm/ 30ml Udcup) 20 gm BID PRN PO CONSTIPATION 03/17/25 23:00 04/16/25 22:59 Metoprolol Tartrate (loprESSOR) 50 mg BID PO 03/19/25 21:00 04/18/25 20:59 03/20/25 08:57 50 MG Ondansetron HCl (zoFRAN 4MG INJ) 4 mg Q6H PRN IV NAUSEA/VOMITING 03/17/25 23:00 04/16/25 22:59 Pantoprazole Sodium (PROTonix 40MG TAB) 40 mg DAILY PO 03/18/25 09:00 04/17/25 08:59 03/20/25 08:59 40 MG Piperacillin Sod/ Tazobactam Sod (Zosyn 3.375gm+NS 50ml) 3.375 gm Q8H IV 03/17/25 23:00 03/20/25 08:53 DC 03/20/25 05:09 3.375 GM Piperacillin Sod/ Tazobactam Sod (Zosyn 3.375gm+NS 50ml) 3.375 gm Q8H IV 03/20/25 13:00 03/30/25 12:59 Topiramate (TopaMAX) 100 mg BID PO 03/19/25 21:00 04/18/25 20:59 03/20/25 08:58 100 MG Vancomycin HCl 500 ml @ 125 mls/hr Q24H IV 03/17/25 23:00 03/27/25 22:59 03/19/25 23:04 125 MLS/HR Vancomycin HCl (Vancomycin Protocol) 1 each AD IV 03/17/25 22:30 03/31/25 22:29 DIAGNOSTICS / RADIOLOGY: [ ] ASSESSMENT: Diabetic foot ulcers to bilateral feet, left foot 2nd toe, right foot big toe, POA Stenosis of the lower limb arteries, POA Uncontrolled Diabetes mellitius type2, POA CKD stage IIIB, POA UTI, POA Right foot arthritis, POA] PLAN: Diabetic foot ulcers to bilateral feet, left foot 2nd toe, right foot big toe, POA * Patient has foot ulcers to bilateral feet, left foot 2nd toe, right foot big toe, POA * Patient's foot x-rays came back negative * MRI has been ordered * Discontinued wound care, consulted Podiatry Stenosis of the lower limb arteries, POA * We ordered arterial US and it showed right lower extremity with 2049% stenosis of the proximal superficial femoral artery and distal popliteal artery with distal small-vessel disease evidenced by monophasic dorsalis pedis waveform, left lower extremity with hemodynamically significant 5080% stenosis of the mid superficial femoral artery. So we consulted cardiology and we are waiting for their recommendations. Uncontrolled Diabetes mellitius type2, POA * Patient's random glucose is at 243>168, his A1c is at 7.9 * Patient on insulin sliding scale CKD stage IIIB, POA: * Patient's creatinine on admission was 1.5 But it has improved to 1.3>1.1 * Patient's GFR at 66>81 UTI, POA * Patient's urinalysis urinalysis came back positive * Patient is on vancomycin and Zosyn * Urine culture came back negative On GI protocol prophylaxis with pantoprazole 40 mg p.o. On DVT prophylaxis with heparin sodium 5000 units subQ We will request labs in am Further orders to follow depending on above results ATTESTATION BY PHYSICIAN I have seen and examined the patient. I reviewed the documentation, medical decision making, and treatment plan as noted by the resident physician above. I agree with the findings and plan of care. Leryo Urbano IV, MD, ABHINAV MD Mar 20, 2025 10:26
[2025-03-20] MEDS: ZOSYN 3.375GM +NS 50ML IV SCH (13:07)
[2025-03-20] MEDS ORDERED: FLUT15.845 NS (18:09)
[2025-03-20] MEDS ORDERED: ESOM40CA66 PO (18:09)
[2025-03-20] MEDS ORDERED: FLUT1BLS3 IH (18:09)
[2025-03-21] VITALS (8 sets, daily range): BP systolic 107–114; BP diastolic 52–69; PULSE 55–90; RESP 14–19; TEMP 97.4–98.2; O2SAT 95–96
[2025-03-21 04:43] LABS: NUCLEATED RED BLOOD CELLS 0.0 % (0.0-0.19); PLATELET COUNT (AUTO) 310.0 K/uL (130-400); RED BLOOD CELL COUNT(AUTO) 4.16 MIL/uL (4.50-6.20); RED CELL DISTRIBUTION WIDTH 12.1 % (11.0-15.5); WHITE BLOOD COUNT (AUTO) 8.8 K/uL (4.8-10.8)
[2025-03-21 04:56] LABS: CREATININE 1.2 mg/dL (0.5-1.3); GLOMERULAR FILTR. RATE CALC 73.0 mL/min (>90); GLUCOSE,RANDOM 124.0 mg/dL (70-105); SODIUM SERUM 137.0 mmol/L (136-145); UREA NITROGEN, BLOOD 19.0 mg/dL (7-18)
--- NOTE | 2025-03-21 08:40 | NUR ---
Patient morning BP was 113/52, rechecked and it was 111/56. I administered the lopressor but did not administer Hyzaar 50-12.5 due to low BP
--- NOTE | 2025-03-21 12:17 | PN ---
[facility] PROGRESS NOTE Date of Service: Mar 21, 2025 Time of Service: 12:17 SUBJECTIVE: Patient is a 54-year-old male with a past medical history of diabetes mellitus type 2, hyperlipidemia, hypertension who came in complaining of Wounds on 2nd toe of left foot and the big toe toe of right foot. Per the patient he noticed the wounds on Thursday night, patient did not have any associated pain. He tried some home remedies like peroxide, rubbing alcohol and petroleum and then he wrapped it with gauze. On he went to his primary care physician who inform Dr. Romero and Dr. Romero recommended the patient come to the ER. Patient does not have any associated fevers or chills. In the emergency department the CBC was unremarkable, the glucose was at 210 mg/dL, creatinine 1.5, BUN 39, no urinalysis has been collected or sent to lab, bilateral x-rays of bilateral feet show right foot arthritis. Additionally patient did not have any fever, tachycardia, tachypnea are leukocytosis FR he did not meet sepsis criteria. Patient was admitted for bilateral lower extremity wounds. 03/18/2025: Patient was seen in the ER 18 without any family present. Patient was awake alert x3 and in no acute respiratory distress. Patient had delayed capillary refill so we ordered arterial ultrasound of the bilateral lower extremities. Came back normal and his creatinine had improved to 1.3 from 1.5 at time of admission. Urinalysis came back positive so his urine has been sent for culture along with his blood. Patient has been started on Zosyn and vancomycin while we also ordered MRI for bilateral lower extremities. Patient is hyponatremic with sodium at 135, his ESR high at 67. Further treatment is based off on his image findings. 03/19/2025: Patient is seen and evaluated in the room 417. He has no symptoms today. Her vital signs are in the normal range. Her labs are normal except for hemoglobin is 12.7, sodium is 135, BUN is 28, glucose is 185. urine culture grew 10,000 to 50,000 CFU, mixed octavio contamination present. We ordered arterial US and it showed right lower extremity with 2049% stenosis of the proximal superficial femoral artery and distal popliteal artery with distal small-vessel disease evidenced by monophasic dorsalis pedis waveform, left lower extremity with hemodynamically significant 5080% stenosis of the mid superficial femoral artery. So we consulted cardiology and we are waiting for their recommendations. We are awaiting the results of MRI, aerobic and anaerobic cultures. 03/20/2025: Patient is seen and evaluated in the room 417. He has no new complaints. Final urine culture came back negative. Patient's aerobic culture showed staph aureus still waiting on sensitivity. Patient already on Zosyn & vancomycin. Still waiting for the MRI. As the patient is Dr. Romero's patient we discontinued wound care and consulted him instead. We are still waiting for Cardiology. 03/21/2025: Patient is seen and evaluated in the room 417. He has no new complaints. Patient's wound culture came back positive for Staphylococcus aureus pansensitive except resistant to erythromycin. Continuing the patient on Zosyn and vancomycin. Dr. Romero saw the patient and recommended MRI which we already ordered, he also changed the patient's wound dressing. ID was consulted who recommended Tdap shot and to continue her current antibiotics. We are still waiting on Cardiology. REVIEW OF SYSTEMS CONSTITUTIONAL: Denies fevers, chills, or night sweats. No unintentional weight loss reported. NEUROLOGICAL: Denies headache, motor weakness, sensory deficit, vertigo/spinning sensation, gait abnormalities, or tremors. ENT: No hearing loss, rhinitis, rhinorrhea, hoarseness, or sore throat. CARDIOVASCULAR: Denies any exertional angina, dyspnea on exertion, orthopnea, paroxysmal nocturnal dyspnea, palpitations PULMONARY: Denies any shortness of breath, cough, phlegm/sputum, hemoptysis, pleuritic chest pain. GASTROINTESTINAL: Denies any type of dysphagia to either liquids or solids. Denies nausea, vomiting, abdominal pain, diarrhea, constipation, or changes in stool consistency or caliber. GENITOURINARY: Denies frequency, urgency, nocturia, hematuria or incontinence. ENDOCRINOLOGIC: Denies polyuria, polydipsia, polyphagia or heat/cold intolerances. DERMATOLOGIC: Wounds on 2nd toe of left foot and the big toe toe of right foot PHYSICAL EXAM GENERAL APPEARANCE: The patient is awake, alert, and oriented, in no acute cardiopulmonary distress. NEUROLOGICAL: Motor is 5/5 in bilateral upper and lower extremities proximal to distal. No sensory deficits. HEENT: Face is symmetric. Pupils are equal and reactive. Extraocular movements are intact. NECK: Supple. No JVD. No thyromegaly. No submental, submandibular, pre- /postauricular, occipital or supraclavicular lymphadenopathy. CHEST: Normal chest expansion. No Telemetry. LUNGS: Absence of any rales, rhonchi or any wheezing. CARDIOVASCULAR: Regular. S1 and S2 normal. No appreciable rubs, murmurs or gallops. ABDOMEN: Soft, nontender, and nondistended. There is no rebound, voluntary guarding, or rigidity. : Deferred. No Jose. EXTREMITIES: Non-edematous and not cyanotic. No clubbing. Delayed capillary refill. Pulses more prominent on right than left foot SKIN: Wounds on 2nd toe of left foot and the big toe toe of right foot Vital Signs (last 8hr) Date Time Temp Pulse Resp B/P (MAP) Pulse Ox O2 Delivery O2 Flow Rate FiO2 03/21/25 11:54 98.1 55 14 107/59 Room Air 03/21/25 08:30 98.1 68 14 113/52 100 Room Air LABS: Laboratory: Test 03/21/25 10:55 03/21/25 04:24 Range/Units Whole Blood Glucose 193 H 70-110 MG/DL White Blood Count 8.8 4.8-10.8 K/uL Red Blood Count 4.16 L 4.50-6.20 MIL/uL Hemoglobin 12.7 L 14.0-18.0 g/dL Hematocrit 38.2 L 42-54 % Mean Corpuscular Volume 91.8 79-99 fL Mean Corpuscular Hemoglobin 30.5 27.0-33.0 pg Mean Corpuscular Hemoglobin Concent 33.2 32.0-36.0 g/dL Red Cell Distribution Width 12.1 11.0-15.5 % Platelet Count 310 130-400 K/uL Mean Platelet Volume 9.4 7.5-10.5 fL Nucleated Red Blood Cells 0.0 0.0-0.19 % Sodium Level 137 136-145 mmol/L Potassium Level 4.0 3.5-5.1 mmol/L Chloride Level 105 101-111 mmol/L Carbon Dioxide Level 24 21-32 mmol/L Blood Urea Nitrogen 19 H 7-18 mg/dL Creatinine 1.2 0.5-1.3 mg/dL Glomerular Filtration Rate Calc 73 >90 mL/min Random Glucose 124 H 70-105 mg/dL Total Calcium 8.3 L 8.5-10.1 mg/dL Current Medications Medications (Trade) Dose Ordered Sig/Roula Route PRN Reason Start Time Stop Time Status Last Admin Dose Admin Acetaminophen (TYLenol 325MG TAB) 650 mg Q6H PRN PO TEMPERATURE GREATER THAN 101.5 03/17/25 23:00 04/16/25 22:59 Aspirin (Aspirin 81mg Chew Tab) 81 mg DAILY PO 03/20/25 09:00 04/19/25 08:59 03/21/25 08:34 81 MG Atorvastatin Calcium (LIPItor 40MG) 40 mg HS PO 03/19/25 21:00 04/18/25 20:59 03/20/25 20:33 40 MG Cefepime HCl (MAXipime 1 GM vial) 1 gm Q12H IVPB 03/17/25 22:30 03/17/25 22:46 DC HCTZ/Losartan Potassium (Hyzaar 50-12.5 Tablet) 2 tab DAILY PO 03/20/25 09:00 04/19/25 08:59 03/20/25 09:00 2 TAB Heparin Sodium (Porcine) (HEParin 5,000 UNIT VIAL) 5,000 unit BID SQ 03/18/25 09:00 04/17/25 08:59 03/21/25 08:35 5,000 UNIT Hydralazine HCl (APRESOLine 20MG INJ) 10 mg Q6H PRN IV For:SBP above 160;DBP above 90 03/17/25 23:00 04/16/25 22:59 Hydromorphone HCl (DiLAUDid 0.5MG INJ) 0.25 mg Q4H PRN IVP SEVERE PAIN (7-10) 03/17/25 23:00 03/22/25 22:59 Insulin Human Regular (humuLIN R 100 UNIT/ML 3ML) INSULIN SLIDING SCAL... ACHS SQ 03/18/25 07:30 04/17/25 07:29 03/21/25 11:55 4 UNIT Lactulose (Constulose 20gm/ 30ml Udcup) 20 gm BID PRN PO CONSTIPATION 03/17/25 23:00 04/16/25 22:59 Metoprolol Tartrate (loprESSOR) 50 mg BID PO 03/19/25 21:00 04/18/25 20:59 03/21/25 08:34 50 MG Ondansetron HCl (zoFRAN 4MG INJ) 4 mg Q6H PRN IV NAUSEA/VOMITING 03/17/25 23:00 04/16/25 22:59 Pantoprazole Sodium (PROTonix 40MG TAB) 40 mg DAILY PO 03/18/25 09:00 04/17/25 08:59 03/21/25 08:34 40 MG Piperacillin Sod/ Tazobactam Sod (Zosyn 3.375gm+NS 50ml) 3.375 gm Q8H IV 03/17/25 23:00 03/20/25 08:53 DC 03/20/25 05:09 3.375 GM Piperacillin Sod/ Tazobactam Sod (Zosyn 3.375gm+NS 50ml) 3.375 gm Q8H IV 03/20/25 13:00 03/30/25 12:59 03/21/25 06:08 3.375 GM Topiramate (TopaMAX) 100 mg BID PO 03/19/25 21:00 04/18/25 20:59 03/21/25 08:34 100 MG Vancomycin HCl 500 ml @ 125 mls/hr Q24H IV 03/17/25 23:00 03/27/25 22:59 03/21/25 00:34 125 MLS/HR Vancomycin HCl (Vancomycin Protocol) 1 each AD IV 03/17/25 22:30 03/31/25 22:29 DIAGNOSTICS / RADIOLOGY: [ ] ASSESSMENT: Diabetic foot ulcers to bilateral feet, left foot 2nd toe, right foot big toe, POA Stenosis of the lower limb arteries, POA Uncontrolled Diabetes mellitius type2, POA CKD stage IIIB, POA UTI, POA Right foot arthritis, POA] PLAN: Diabetic foot ulcers to bilateral feet, left foot 2nd toe, right foot big toe, POA * Patient has foot ulcers to bilateral feet, left foot 2nd toe, right foot big toe, POA * Patient's foot x-rays came back negative * MRI has been ordered * Discontinued wound care, consulted Podiatry * Patient's wound culture came back positive for staph aureus pansensitive with resistance only to Erythromycin Stenosis of the lower limb arteries, POA * We ordered arterial US and it showed right lower extremity with 2049% stenosis of the proximal superficial femoral artery and distal popliteal artery with distal small-vessel disease evidenced by monophasic dorsalis pedis waveform, left lower extremity with hemodynamically significant 5080% stenosis of the mid superficial femoral artery. So we consulted cardiology and we are waiting for their recommendations. Uncontrolled Diabetes mellitius type2, POA * Patient's random glucose is at 243>168, his A1c is at 7.9 * Patient on insulin sliding scale CKD stage IIIB, POA: * Patient's creatinine on admission was 1.5 But it has improved to 1.3>1.1 * Patient's GFR at 66>81 UTI, POA * Patient's urinalysis urinalysis came back positive * Patient is on vancomycin and Zosyn * Urine culture came back negative On GI protocol prophylaxis with pantoprazole 40 mg p.o. On DVT prophylaxis with heparin sodium 5000 units subQ We will request labs in am Further orders to follow depending on above results ATTESTATION BY PHYSICIAN I have seen and examined the patient. I reviewed the documentation, medical decision making, and treatment plan as noted by the resident physician above. I agree with the findings and plan of care. Leroy Urbano IV, MD, ABHINAV MD Mar 21, 2025 12:17
--- NOTE | 2025-03-21 12:37 | NUR ---
New consult for Dr. Gilliam was put in, caught him while making his rounds so made him aware of new consult. He came in and saw patient. Ordered TDAP
--- NOTE | 2025-03-21 14:31 | CONS ---
INFECTIOUS DISEASE CONSULTATION NOTE Date of Service: Mar 21, 2025 Reason for Consultation: Staphylococcus aureus Requesting Physician: Dr. Castrejon HISTORY OF PRESENT ILLNESS: This is a 54-year-old male patient with past medical history of diabetes mellitus who presented to the emergency room for evaluation of wounds to bilateral feet. On examination patient has a wound to the right 5th toe and one to the left 2nd toe. Denies trauma to his feet. Denied experiencing fever or chills at home. Wound cultures has been collected on admission. Patient reported having similar issues to the left great toe in the past. An arterial Doppler showed 5080% stenosis of left lower extremity and 2049% stenosis of the right lower extremity. A MRI of bilateral feet has been ordered and pending to be done. Patient does not recall when he had his last tetanus vaccine. Will administer Tdap. Patient has been started on vancomycin and Zosyn. We will continue current antibiotics as ordered and follow up on the culture results and the MRI. REVIEW OF SYSTEMS CONSTITUTIONAL: Denies fever, chills, or fatigue. HEAD/FACE: No signs of trauma. EENT: Denies eye pain, blurred vision, double vision, or light sensitivity. RESPIRATORY: Denies shortness of breath, cough, wheezing CARDIOVASCULAR: Denies chest pain, palpitation, syncope GASTROINTESTINAL/ABDOMINAL: Denies abdominal pain, constipation, diarrhea, nausea or vomiting GENITOURINARY: Denies dysuria or hematuria. MUSCULOSKELETAL: Denies joint pain, tenderness, or trauma. INTEGUMENTARY: For evaluation of wounds to bilateral feet. NEUROLOGICAL/PSYCH: Denies anxiety, depression, heat or cold intolerance. PAST MEDICAL HISTORY: Type II diabetes mellitus. PAST SURGICAL HISTORY: No surgeries reported. PAST SOCIAL HISTORY: Patient denied current use of tobacco, alcohol or any other illicit drug. FAMILY HISTORY: Noncontributory. Coded Allergies: No Known Drug Allergies (Verified Allergy, Unknown, 02/13/18) Uncoded Allergies: ALMONDS (Allergy, Intermediate, SWELLING, 02/13/18) SWELLING TO THROAT AND TONGUE PHYSICAL EXAM EYES: Anicteric. Pupils equal and reactive. HENT: No oral thrush seen, moist Oral mucosa NECK: Supple, no JVD or thyromegaly. LUNGS: Good air entry. No rales, no rhonchi. CARDIOVASCULAR: S1, S2 regular. No murmur heard. ABDOMEN: Soft, non tender, bowel sounds present, CENTRAL NERVOUS SYSTEM: Awake, alert, oriented x 3. SKIN: No rashes, no swelling. LYMPHATICS: No peripheral lymphadenopathy MUSCULOSKELETAL: No joint swelling, erythema or tenderness. EXTREMITIES: No cyanosis or clubbing. Left 2nd toe wound and right 5th toe wound. BACK: No deformity, no pressure ulcer. GENITOURINARY: No dysuria or hematuria Vital Sign (Last 24 Hours) 03/20/25 03/21/25 03/21/25 03/21/25 20:33 03:54 08:30 11:54 Temp 98.1 Pulse 55 Resp 14 B/P (MAP) 107/59 Pulse Ox 100 O2 Delivery Room Air O2 Flow Rate 0 FiO2 21 Intake & Output (last 24hrs) 03/20/25 03/20/25 03/21/25 15:00 23:00 07:00 Intake Total 900 ml 600.0 ml Output Total 400 ml Balance 900 ml 200.0 ml LABS: Laboratory: Test 03/21/25 10:55 03/21/25 04:24 Range/Units Whole Blood Glucose 193 H 70-110 MG/DL White Blood Count 8.8 4.8-10.8 K/uL Red Blood Count 4.16 L 4.50-6.20 MIL/uL Hemoglobin 12.7 L 14.0-18.0 g/dL Hematocrit 38.2 L 42-54 % Mean Corpuscular Volume 91.8 79-99 fL Mean Corpuscular Hemoglobin 30.5 27.0-33.0 pg Mean Corpuscular Hemoglobin Concent 33.2 32.0-36.0 g/dL Red Cell Distribution Width 12.1 11.0-15.5 % Platelet Count 310 130-400 K/uL Mean Platelet Volume 9.4 7.5-10.5 fL Nucleated Red Blood Cells 0.0 0.0-0.19 % Sodium Level 137 136-145 mmol/L Potassium Level 4.0 3.5-5.1 mmol/L Chloride Level 105 101-111 mmol/L Carbon Dioxide Level 24 21-32 mmol/L Blood Urea Nitrogen 19 H 7-18 mg/dL Creatinine 1.2 0.5-1.3 mg/dL Glomerular Filtration Rate Calc 73 >90 mL/min Random Glucose 124 H 70-105 mg/dL Total Calcium 8.3 L 8.5-10.1 mg/dL DIAGNOSTICS / RADIOLOGY: [ ] ASSESSMENT: Left foot 2nd toe wound. Right foot 5th toe Wound. Urinary tract infection. Diabetes mellitus. PLAN: Continue vancomycin per pharmacy protocol. Continue Zosyn. Continue pain management. Pending MRI of bilateral feet. We will follow up on the culture results. Thank you for allowing ID to participate in the care of this patient. This case was reviewed and discussed with my supervising physician Dr. Son and the above assessment and plan was formulated and agreed upon. ATTESTATION BY PHYSICIAN I have seen and examined the patient. I reviewed the documentation, medical decision making, and treatment plan as noted by the mid-level provider above. I agree with the findings and plan of care. ROBERT SON MD, [facility] Mar 21, 2025 14:31
--- NOTE | 2025-03-21 14:40 | CONS ---
HISTORY OF PRESENT ILLNESS: The patient is a 54-year-old diabetic male, patient of Dr. Byron Weiner in [place] who I was asked to see regarding bilateral foot ulcers. The patient is well known to me from previous encounters. 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 He states he wears composite toe boots at work. He developed swelling and the boots rubbed ulcerations to his left first toe, his left second toe, and his right fifth toe necessitating his admission to the hospital. He was sent by his primary care physician, Dr. Bradshaw, for hospital admission due to concern of ulcerations to his feet. He is without any complaints of pain. Denies any constitutional symptoms. He has a T-max today of 99.0, blood pressure 143/72, pulse 61, and respirations 18. He has a white count of 7.6, H and H 12.6 and 38.2, platelets 305, and sedimentation rate 67. He has a BUN and creatinine level of 20 and 1.1, GFR 81, and glucose of 219. He is currently receiving IV Zosyn and IV vancomycin. The patient has had wound cultures taken of his foot ulcers. He has had MRIs ordered. They are still pending. He has had plain films of his feet, which showed no osseous destructive changes to the right fifth toe. He has severe midfoot arthritis consistent with Charcot arthropathy at the talonavicular and the naviculocuneiform joints. On the left, the patient has advanced arthritic changes at the talonavicular and naviculocuneiform joints. He has soft tissue swelling noted to the left second toe. PAST MEDICAL HISTORY: He has a past medical history that is significant for diabetes type 2 and obesity, recurrent ulcers to his feet bilaterally, history of ulcerations of the fifth metatarsal base on the left that is now completely healed. FAMILY HISTORY: Carcinoma in sister, cardiovascular disease in mother, diabetes in mother, and hypertension in mother. REVIEW OF SYSTEMS: CONSTITUTIONAL: No chills, no fevers, no night sweats. GASTROINTESTINAL: No nausea, vomiting, no diarrhea. HEENT: No problems with his eyes, ears, nose and throat. CARDIOVASCULAR: Having no current chest pain. GENITOURINARY: Chronic kidney disease. PSYCHIATRIC: Denies depression. MUSCULOSKELETAL: Bunions and hammertoe deformities. INTEGUMENTARY: He has an ingrown toenail of his left second toe. He has an ulcer to the distal aspect of the left second toe and an ulcer to the nail bed of the left second toe. He has an ulcer to the lateral aspect of the proximal interphalangeal joint of the right fifth toe. He has elongated, thickened, brittle, gryphotic toenails x10 with subungual debris. PHYSICAL EXAMINATION: EXTREMITIES: His examination reveals strongly palpable pedal pulses to his feet bilaterally,feet are cool,digits are ruborous and hair is sparce to digits Absent protective sensation to his feet bilaterally. Hammertoes and bunion deformities bilaterally. Rocker bottom deformities to his feet bilaterally. Decreased rearfoot and midfoot ranges of motion. Metatarsophalangeal joints motion within normal limits. Elongated thickened brittle, gryphotic toenails x10 with subungual debris, ingrown toenail to the left second toenail, ulcer to the distal aspect of the left second toe, ulcer to the lateral aspect of the right fifth toe proximal interphalangeal joint, hemorrhagic callus to the dorsum and medial aspect of the left first toe. ASSESSMENT: Diabetes, chronic kidney disease, uncontrolled diabetes, obesity. The patient is receiving vancomycin and Zosyn. MRI is pending. Onychomycosis, onychogryphosis, ingrown toenail of the left second toe, ulcer left second toe, hemorrhagic callus to the first toe, ulcer to the right fifth toe proximal interphalangeal joint. PLAN: I blocked his first toe and second toe on the left with 3 mL of 1% lidocaine plain. I blocked his right fifth toe with 3 mL of 1% lidocaine plain, and with the patient's consent, I avulsed the left second toenail, which was ingrown with use of a #15 scalpel blade and a forceps. I debrided the ulcer to the tip of the left second toe. Pre-debridement was 5 x 5 x 1 mm. Post debridement was 10 x 10 x 3 mm. I debrided slough fiber, necrotic fiber, dysvascular-appearing skin and subcutaneous tissues down to including the level of the subcutaneous tissue in the area that measured post-debridement 10 x 10 x 3 mm for a total area of sharp excision and debridement of 1 cm. Hemostasis was obtained with Lumacain wounds to the nail bed and to the distal aspect of the left second toe were dressed with Hydrofera Blue. I trimmed the callus that was hemorrhagic in nature to the left great toe without incident and applied Hydrofera Blue dressing. I debrided the patient's toenails extensively reducing length and girth to pink healthy tissue with subungual debris x9 with a nail clipper and dermal curette without incident. With the use of a #15 scalpel blade, forceps, and a tissue nipper, I performed a sharp excisional debridement of the ulcer to the lateral aspect of the right fifth toe proximal interphalangeal joint. Pre-debridement was 15 x 20 x 1 mm. Post debridement is 2 cm x 3 cm x 3 mm for total area of sharp excision and debridement of 6 cm width. I debrided slough fiber, necrotic fiber, dysvascular-appearing skin and subcutaneous tissue x2 including the level of the subcutaneous tissue with #15 scalpel blade, forceps, and a tissue nipper. Estimated blood loss less than 2 mL. Hemostasis with pressure gauze and Lumicain. The wound was dressed with a Hydrofera Blue dressing. The patient tolerated the debridements well and had no pain. We will continue with IV vancomycin and IV cefepime. We will await evaluation of his circulation status by the Cardiology service. We will await the results of the MRI to evaluate the patient for the possibility of osteomyelitis. We will follow the patient closely while in-house. TID: [id number] RECEIPT: [id number] [facility]
--- NOTE | 2025-03-21 14:42 | NUR ---
Spoke to Roselyn from [facility] in regards to consult that was called in on the but patient hasn't been seen. She will notify operations section manager specialty development consultant Hailee
--- NOTE | 2025-03-21 15:59 | CONS ---
[facility] CARDIOLOGY CONSULTATION REPORT Consultation note dictated for Bob Stephen MD Primary supervisor insulation: Rubén Wade MD Date Patient Seen: Mar 21, 2025 Time of Visit: 15:33 Reason for Consultation: PAD History of Present Illness: This is a 54-year-old male with a past medical history of hypertension, hyperlipidemia, diabetes mellitus type 2, morbid obesity,coronary calcium score of 247.6 on 10/26/2023, and previous left great toe ulceration who presented with ulcerations and pain to the left 2nd toe and a blister on the left great toe as well as a right 5th toe ulceration. He has undergone further evaluation by Dr. Frantz Romero who felt the patient had onychomycosis, onychogryphosis, ingrown toenail of the left second toe, ulcer left second toe, hemorrhagic callus to the first toe, ulcer to the right fifth toe proximal interphalangeal joint. The patient underwent debridement of the tip of the left 2nd toe, debridement of the callus of the left great toe, debridement of ulcer of the right 5th toe, and avulsion of the left 2nd toenail. Bilateral lower extremity arterial Doppler examination mild to moderate bilateral peripheral arterial disease with on the right: monophasic waveforms of the right dorsalis pedis, triphasic waveforms of the right posterior tibial, and biphasic waveforms of the right anterior tibial. On the left: There are biphasic waveforms of the left posterior tibial and triiphasic waveforms of the left anterior tibial and Cardiology was consulted to assess for adequacy of the arterial circulation for wound healing. Past Medical History: As outlined above in the summarized below. Past Surgical History: None. 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 Denies alcohol consumption. Denies illicit drug use Home Meds: See medication reconciliation Review of Systems: CONST: No fever, fatigue, or weight changes. EYES: No recent vision problems. ENT: No congestion, ear pain, or sore throat. C/V: Dyspnea on exertion. No chest pain, palpitations, or edema. RESP: No cough, congestion, wheezing or shortness of breath. GI: No abdominal pain, nausea, vomiting, constipation, or diarrhea. : No incontinence or dysuria. SKIN: No rash. NEURO: No headache, focal numbness or weakness, dizziness, or seizures. PSYCH: No depression or anxiety. HEME: No abnormal bruising or bleeding. LYMPH: No swollen glands. Physical Examination: GENERAL: No acute distress. HEAD: Normal with no signs of head trauma. EYES: PERRLA, EOMI, conjunctiva and sclera normal. ENT: Hearing grossly intact, normal oropharynx. NECK: Supple without JVD. There is no tenderness, lymphadenopathy, or masses. No thyromegaly. Normal carotid upstrokes without bruits. LUNGS: Clear breath sounds bilaterally. No wheezes, or rhonchi. HEART: Normal rate and rhythm. Normal S1 and S2 without murmurs, gallop or rub. VASC: Peripheral pulses +2 bilaterally, with the exception of the left posterior tibial which is 1+. Bilateral lower extremity venous stasis changes. The patient is status post unroofing of the left 2nd toe. ABD: Bowel sounds normal, soft, nontender, no masses, no organomegaly. No audible bruits. : Not examined LYMPH: No lymphadenopathy noted. EXT: No clubbing, cyanosis or edema. There is 2+ right pedal edema and 1+ left pedal edema. SKIN: No rashes or lesions noted. NEURO: Awake, alert, and oriented x3. No focal sensory or strength deficits noted. Vital Signs (last 8hr) Date Time Temp Pulse Resp B/P (MAP) Pulse Ox O2 Delivery O2 Flow Rate FiO2 03/21/25 11:54 98.1 55 14 107/59 Room Air 03/21/25 08:30 98.1 68 14 113/52 100 Room Air Laboratory: Hematology Labs: Test 03/21/25 04:24 Range/Units White Blood Count 8.8 4.8-10.8 K/uL Red Blood Count 4.16 L 4.50-6.20 MIL/uL Hemoglobin 12.7 L 14.0-18.0 g/dL Hematocrit 38.2 L 42-54 % Mean Corpuscular Volume 91.8 79-99 fL Mean Corpuscular Hemoglobin 30.5 27.0-33.0 pg Mean Corpuscular Hemoglobin Concent 33.2 32.0-36.0 g/dL Red Cell Distribution Width 12.1 11.0-15.5 % Platelet Count 310 130-400 K/uL Mean Platelet Volume 9.4 7.5-10.5 fL Nucleated Red Blood Cells 0.0 0.0-0.19 % Chemistry Labs: Test 03/21/25 10:55 03/21/25 04:24 Range/Units Whole Blood Glucose 193 H 70-110 MG/DL Sodium Level 137 136-145 mmol/L Potassium Level 4.0 3.5-5.1 mmol/L Chloride Level 105 101-111 mmol/L Carbon Dioxide Level 24 21-32 mmol/L Blood Urea Nitrogen 19 H 7-18 mg/dL Creatinine 1.2 0.5-1.3 mg/dL Glomerular Filtration Rate Calc 73 >90 mL/min Random Glucose 124 H 70-105 mg/dL Total Calcium 8.3 L 8.5-10.1 mg/dL Diagnostics / Radiology: Impression and Plan: Onychomycosis, onychogryphosis, ingrown toenail of the left second toe, ulcer left second toe, hemorrhagic callus to the first toe, ulcer to the right fifth toe proximal interphalangeal joint: Evidence of mild to moderate bilateral peripheral arterial disease with on the right: monophasic waveforms of the right dorsalis pedis, triphasic waveforms of the right posterior tibial, and biphasic waveforms of the right anterior tibial. On the left: There are biphasic waveforms of the left posterior tibial and triiphasic waveforms of the left anterior tibial: S/p debridement of the tip of the left 2nd toe, debridement of the callus of the left great toe, debridement of ulcer of the right 5th toe, and avulsion of the left 2nd toenail: -the patient is findings are more consistent with poorly fitted shoes and ingrown toenails as well as pressure ulcerations. -the [id number] severity of the PAD appears to be sufficient for wound healing. Peripheral pulses +2 bilaterally, with the exception of the left posterior tibial which is 1+ -proceed with an abdominal aortogram with bilateral runoff studies to assess his PAD. -routine statin therapy to target LDL less than 55. -routine dual antiplatelet therapy with aspirin plus clopidogrel -Dr. Rubén Wade will follow. -continued podiatry follow-up with Dr. Frantz Romero -venous Doppler bilateral lower extremities History of intermediate risk coronary calcium score of 248 on 10/26/2023: -routine statin therapy to target LDL less than 55. -routine dual antiplatelet therapy with aspirin plus clopidogrel -outpatient Lexiscan Cardiolite stress test is pending, and can be performed as an inpatient as he requires continued antibiotic and podiatry care Comorbidities: LVEF of 55% by prior 2D echo, uncertain date Essential hypertension Hyperlipidemia Type 2 diabetes mellitus with hemoglobin A1c of 7.9% Obesity Chronic venous insufficiency Suspected sleep apnea Stage III chronic renal insufficiency PHYSICIAN ATTESTATION OF PHYSICIAN DELINQUENT NOTICE MACHINE OPERATOR DOCUMENTATION: I attest that I was physically present for the [place] portions of the service and evaluated the patient with the Physician Flight Surveyor, and I reviewed and discussed the case with the Physician Flight Surveyor and made modifications to the Physician Flight Surveyor's findings and plans of care as documented above PHYSICIAN ATTESTATION OF PHYSICIAN DELINQUENT NOTICE MACHINE OPERATOR DOCUMENTATION: I attest that I was physically present for the [place] portions of the service and evaluated the patient with the Physician Flight Surveyor, and I reviewed and discussed the case with the Physician Flight Surveyor and made modifications to the Physician Flight Surveyor's findings and plans of care as documented above JUNIOR JUDD Mar 21, 2025 15:59 BOB STEPHEN MD Mar 21, 2025 16:10
[2025-03-21] MEDS ORDERED: IOHEXOL-350 50ML VIAL IV ONE (17:10)
[2025-03-21] MEDS ORDERED: IOHEXOL 350 MG/ML 100ML INFUS..BTL IV ONE (17:10)
--- NOTE | 2025-03-22 03:01 | HMCIMG ---
BILATERAL LOWER EXTREMITY VENOUS DOPPLER CLINICAL HISTORY: DVT. TECHNIQUE: Duplex ultrasound evaluation of the bilateral lower extremity deep venous system was performed using grayscale imaging, compression maneuvers, color Doppler, and spectral Doppler analysis. COMPARISON: None. FINDINGS: Right Lower Extremity: The common femoral vein, great saphenous vein, profundal femoral vein, superficial femoral vein, popliteal vein are patent, demonstrate normal compressibility, and show normal color flow and spectral Doppler waveforms. The posterior tibial vein is patent and demonstrate normal compressibility, and show normal color flow and spectral Doppler waveforms. No intraluminal thrombus is identified. Normal respiratory variation and augmentation are noted. Left Lower Extremity: The common femoral vein, great saphenous vein, profundal femoral vein, superficial femoral vein and popliteal vein, are patent demonstrate normal compressibility, and show normal color flow and spectral Doppler waveforms. The posterior tibial vein is patent and demonstrate normal compressibility, and show normal color flow and spectral Doppler waveforms. No intraluminal thrombus is identified. Normal respiratory variation and augmentation are noted. A well-defined anechoic fluid collection is seen in the left popliteal fossa, measuring 2.7 x 1.8 x 3.5 cm, consistent with a Bakers cyst. IMPRESSION: 1. No evidence of deep venous thrombosis in the bilateral lower extremities. 2. Left Bakers cyst, measuring 2.7 x 1.8 x 3.5 cm. /[place]
--- NOTE | 2025-03-22 04:11 | PN ---
SUBJECTIVE: The patient is a very pleasant 54-year-old diabetic male, currently afebrile, 98.1, pulse 55, respirations 14, blood pressure 107/59. The patient has a white count 8.8, H and H 12.7 and 38.4, platelets 310, BUN 19, creatinine 1.2, blood sugar 193. The patient is currently receiving IV Zosyn and IV vancomycin. The patient had MRIs of the feet ordered bilaterally. Results pending. Arterial Doppler studies. Stenosis of the SFA bilaterally. Cardiology has been consulted. REVIEW OF SYSTEMS: CONSTITUTIONAL: No chills, fevers, or night sweats. GASTROINTESTINAL: No nausea or vomiting. No diarrhea. No dysphagia. HEENT: No problems with eyes, ears, nose, or throat. CARDIOVASCULAR: No chest pain. GENITOURINARY: No dysuria. ENDOCRINE: Diabetes. PSYCHIATRIC: Denied any depression. MUSCULOSKELETAL: Bunion and hammertoe deformities. INTEGUMENTARY: Ingrown toenail surgical site, left second toe. He has an ulcer to the distal aspect of the left second toe. He has an ulcer to the lateral aspect of the right fifth toe. OBJECTIVE: On examination today, left second toe ulcer is clean and granular. Ulcer to the right fifth toe, 3 x 2 cm, has a mixed granular and fibrotic base. ASSESSMENT: Ulcer to the left second toe, ulcer to the right fifth toe, diabetes, peripheral vascular disease, peripheral neuropathy. MRI is pending. The patient is receiving IV vancomycin and Zosyn. PLAN: We will continue with IV vancomycin and IV cefepime. We will continue local wound care with Hydrofera Blue dressings. Awaiting evaluation of circulation status by the Cardiology Service, awaiting the MRI to evaluate the patient for the possibility of osteomyelitis. Continue to follow the patient closely while in-house. TID: [id number] RECEIPT: [id number]
[2025-03-22 04:20] VITALS: BP 108/61; PULSE 59; RESP 18; TEMP 97.9
[2025-03-22 04:58] LABS: NUCLEATED RED BLOOD CELLS 0.0 % (0.0-0.19); PLATELET COUNT (AUTO) 300.0 K/uL (130-400); RED BLOOD CELL COUNT(AUTO) 4.21 MIL/uL (4.50-6.20); RED CELL DISTRIBUTION WIDTH 12.1 % (11.0-15.5); WHITE BLOOD COUNT (AUTO) 8.7 K/uL (4.8-10.8)
[2025-03-22 05:17] LABS: CREATININE 1.1 mg/dL (0.5-1.3); GLOMERULAR FILTR. RATE CALC 81.0 mL/min (>90); GLUCOSE,RANDOM 169.0 mg/dL (70-105); LDL DIRECT 35.0 mg/dL (0-99); SODIUM SERUM 135.0 mmol/L (136-145); UREA NITROGEN, BLOOD 23.0 mg/dL (7-18)
[2025-03-22] MEDS: REGADENOSON 0.4 MG/5 ML PF SYG IVP ONE (08:13)
--- NOTE | 2025-03-22 11:15 | HMCSR ---
APPROVED REPORT Height: 5 ft 5in Weight: 280 lbs TEST INDICATIONS ALVARADO The imaging protocol used to acquire images was Rest Tc-99m/stress Tc-99m 1 day Consent: The procedure was explained and understood by the patient. Informerd consent was witnessed by Mary Adrian RN First, low dose rest was performed then high dose stress. RESTING DATA: The resting ekg shows: NSR Rest SPECT myocardial perfusion imaging was performed in supine position minutes following the intravenous injection of 11 mCi of Tc-99 Sestamibi. Time of rest injection: 06:38: Date: 03/22/2025 PHARMACOLOGIC STRESS: Pharmacologic stress test was performed by injecting regadenoson 0.4 mg IV push followed by the intravenous injection of 30 mCi of Tc-99 Sestamibi. Time of stress injection: 08:20: Date: 03/22/2025 Heart Rate at time of stress injection: 57 bpm. Gated Stress SPECT was performed 60 minutes after stress injection. The images were gated to evaluate regional wall motion and calculate left ventricular ejection fraction. STRESS DETAILS Reason for Termination: Infusion complete Stress Symptoms: Dyspnea, Chest pressure Max HR Achieved: 76 bpm % of APMHR Achieved: 53 Max Blood Pressure: 115/58 mmHg Stress ECG: NSR Study quality was good. Lung uptake was Normal. Artifact: No artifact IMPRESSION Normal pharmacologic nuclear stress test. Conclusion Normal perfusion. TID 1.02. LVEF 62%
--- NOTE | 2025-03-22 11:59 | PN ---
INFECTIOUS DISEASE PROGRESS NOTE Date of Service: Mar 22, 2025 SUBJECTIVE: This is a 54-year-old male patient who has been seen in room 417. The final wound culture results of the right 5th toe came back positive for methicillin-susceptible Staphylococcus aureus. Patient is pending interpretation of bilateral feet MRI. We will discontinue vancomycin and continue Zosyn. We will place PICC line. Patient made aware of this plan. We will continue to follow patient's care. PHYSICAL EXAM EYES: Anicteric. Pupils equal and reactive. HENT: No oral thrush seen, moist Oral mucosa NECK: Supple, no JVD or thyromegaly. LUNGS: Good air entry. No rales, no rhonchi. CARDIOVASCULAR: S1, S2 regular. No murmur heard. ABDOMEN: Soft, non tender, bowel sounds present, CENTRAL NERVOUS SYSTEM: Awake, alert, oriented x 3. SKIN: No rashes, no swelling. LYMPHATICS: No peripheral lymphadenopathy MUSCULOSKELETAL: No joint swelling, erythema or tenderness. EXTREMITIES: No cyanosis or clubbing. Left 2nd toe wound and right 5th toe wound. BACK: No deformity, no pressure ulcer. GENITOURINARY: No dysuria or hematuria Vital Sign (Last 12 Hours) 03/22/25 04:20 Temp 97.9 Pulse 59 Resp 18 B/P (MAP) 108/61 Pulse Ox 98 O2 Delivery Room Air FiO2 21 Intake & Output (last 24hrs) 03/21/25 03/21/25 03/22/25 15:00 23:00 07:00 Intake Total 200 ml 700.0 ml Output Total 800 ml Balance 200 ml -800 ml 700.0 ml LABS: Laboratory: Test 03/22/25 11:23 03/22/25 04:41 03/21/25 22:25 Range/Units Whole Blood Glucose 175 H 70-110 MG/DL White Blood Count 8.7 4.8-10.8 K/uL Red Blood Count 4.21 L 4.50-6.20 MIL/uL Hemoglobin 12.9 L 14.0-18.0 g/dL Hematocrit 38.5 L 42-54 % Mean Corpuscular Volume 91.4 79-99 fL Mean Corpuscular Hemoglobin 30.6 27.0-33.0 pg Mean Corpuscular Hemoglobin Concent 33.5 32.0-36.0 g/dL Red Cell Distribution Width 12.1 11.0-15.5 % Platelet Count 300 130-400 K/uL Mean Platelet Volume 9.4 7.5-10.5 fL Nucleated Red Blood Cells 0.0 0.0-0.19 % Sodium Level 135 L 136-145 mmol/L Potassium Level 3.9 3.5-5.1 mmol/L Chloride Level 104 101-111 mmol/L Carbon Dioxide Level 20 L 21-32 mmol/L Blood Urea Nitrogen 23 H 7-18 mg/dL Creatinine 1.1 0.5-1.3 mg/dL Glomerular Filtration Rate Calc 81 >90 mL/min Random Glucose 169 H 70-105 mg/dL Total Calcium 8.2 L 8.5-10.1 mg/dL Triglycerides Level 91 30-200 mg/dL Cholesterol Level 82 <200 mg/dL LDL Cholesterol 35 0-99 mg/dL HDL Cholesterol 39 29-71 mg/dL Vancomycin Level Trough 17.1 10.0-20.0 UG/ML DIAGNOSTICS / RADIOLOGY: PATIENT: JOSE DOTY ACCT: [id number] LOC: [facility] U: [id number] AGE/SX: 54/M ROOM: [facility] RE03/17/[address]: CARLITO WATTS MD : 1970 BED: 1 DIS: STATUS: ADM IN TLOC: SPEC: [id number] WAYLON: 03/18/25-1339 STATUS: COMP REQ: [id number] RECD: 03/18/[address]: RUBEN TOBIN [facility] SOURCE: TOE ENTR: 03/18/25-[address]: CARLITO WATTS MD SPDESC: RT MICKY SANDERS MD SELF,REFERRAL ORDERED: FABIANA CULTURE, AEROBIC CULTURE COMMENTS: Has specimen been collected/obtained? Y Procedure Result Joy Date-Time ANAEROBIC CULTURE Final 03/22/25-616 MRL COLONY DESCRIPTION: REPORT 1: NO ANAEROBES AT 16-23 HOURS; STUDIES TO CONTINUE REPORT 2: NO ANAEROBES AT 36-47 HOURS; STUDIES TO CONTINUE REPORT 3: NO ANAEROBES AT 60 TO 71 HOURS Test(s) performed by: [facility] [address] [place] [address] AEROBIC CULTURE Final 03/21/25-0557 MRL COLONY DESCRIPTION: REPORT 1: 2+ GRAM POSITIVE COCCI IN CLUSTERS STAPHYLOCOCCUS AUREUS SENSITIVITY TO FOLLOW REPORT 2: NO FURTHER WORK-UP DONE STAPHYLOCOCCUS AUREUS CONTINUED ON NEXT PAGE RUN DATE: 03/22/25 [facility] PAGE 2 RUN TIME: [address] [address] Department of Laboratories [facility] # [id number] Physician Office Rep: Estelita Pennington DO Specimen Report SPEC: [id number] PATIENT: JOSE DOTY [id number] (Continued) Procedure Result Joy Date-Time AEROBIC CULTURE Final (continued) 03/21/25-556 S. AUREUS M.I.C. RX --------- ---- ERYTHROMYCIN >4 R GENTAMICIN <=4 S LEVOFLOXACIN <=1 S VANCOMYCIN <=0.5 S OXACILLIN KAYLEY <=0.25 S RIFAMPIN <=1 S PENICILLIN >8 Saúl TRIMETHOPRIM/SUFLAMETHOXAZOLE <=0.5/9.5 S ASSESSMENT: Left foot 2nd toe wound. Right foot 5th toe Wound with methicillin susceptible Staphylococcus aureus infection. Urinary tract infection. Diabetes mellitus. PLAN: Discontinue vancomycin. Continue Zosyn. Continue pain management. Pending MRI interpretation. Place PICC line. This case was reviewed and discussed with my supervising physician Dr. Son and the above assessment and plan was formulated and agreed upon. ATTESTATION BY PHYSICIAN I have seen and examined the patient. I reviewed the documentation, medical decision making, and treatment plan as noted by the mid-level provider above. I agree with the findings and plan of care. ROBERT SON MD, MIRTA [facility] Mar 22, 2025 11:59
[2025-03-22 12:00] VITALS: BP 123/63; PULSE 63; RESP 18; TEMP 98.1
[2025-03-22 12:10] VITALS: O2SAT 98
[2025-03-22] MEDS ORDERED: PoTASSium chl 10% ELIXIR 20MEQ 20 MEQ/15 ML UDCUP PO PRN (12:30)
[2025-03-22] MEDS ORDERED: PoTASSium chloRIDE 20MEQ ER 20 MEQ ERTAB PO PRN (12:30)
--- NOTE | 2025-03-22 12:33 | DS ---
[facility] CARDIOLOGY SIGN-OFF NOTE Date of Admission: Mar 17, 2025 at 22:11 Date of Discharge: Mar 22, 2025 Discharge Diagnoses: PAD, HTN, HLD, DM II Principle Procedures Performed: CTA with runoff to BLE demonstrates adequate blood flow for wound healing nuclear stress test shows normal perfusion, no evidence of myocardial ischemia Problem List: Onychomycosis, onychogryphosis, ingrown toenail of the left second toe, ulcer left second toe, hemorrhagic callus to the first toe, ulcer to the right fifth toe proximal interphalangeal joint: Evidence of mild to moderate bilateral peripheral arterial disease with on the right: monophasic waveforms of the right dorsalis pedis, triphasic waveforms of the right posterior tibial, and biphasic waveforms of the right anterior tibial. On the left: There are biphasic waveforms of the left posterior tibial and triiphasic waveforms of the left anterior tibial: S/p debridement of the tip of the left 2nd toe, debridement of the callus of the left great toe, debridement of ulcer of the right 5th toe, and avulsion of the left 2nd toenail: History of intermediate risk coronary calcium score of 248 on 10/26/2023: Comorbidities: LVEF of 55% by prior 2D echo, uncertain date Essential hypertension Hyperlipidemia Type 2 diabetes mellitus with hemoglobin A1c of 7.9% Obesity Chronic venous insufficiency Suspected sleep apnea Stage III chronic renal insufficiency Interval History: Pt is s/p debridement, arterial doppler demonstrating adequate flow for wound healing. Continues on asa, statin, optimize glucose control and adding plavix 75mg po daily, stable hgb He denies overnight events. Vitals remains stable Podiatry continues to follow for wound care. Physical Examination: GENERAL: [No acute distress.] HEAD: [Normal with no signs of head trauma.] EYES: [PERRLA, EOMI, conjunctiva and sclera normal.] ENT: [Hearing grossly intact, normal oropharynx.] NECK: [Supple without JVD. There is no tenderness, lymphadenopathy, or masses. No thyromegaly. Normal carotid upstrokes without bruits.] LUNGS: [Clear breath sounds bilaterally. There are right basilar rales one third of the way up the chest. No wheezes, or rhonchi.] HEART: [Normal rate and rhythm. Normal S1 and S2 without murmurs, gallop or rub.] VASC: [Peripheral pulses present, confirmed by doppler to DP and PT ABD: [Bowel sounds normal, soft, nontender, no masses, no organomegaly. No a udible bruits.] : [Not examined] LYMPH: [No lymphadenopathy noted.] EXT: Post op changes after debridement SKIN: Wounds to lower ext with dressings in place per podiatry NEURO: [Awake, alert, and oriented x3. No focal sensory or strength deficits noted.] Discharge Medication Recommendations: Continue statin, atorvastatin 40mg at hs Continue DAPT, asa and plavix daily Wound care per podiatry Losartan/hctz and metoprolol for bp control Discharge Follow-up: Follow up in clinic in 2 weeks post discharge MARQUIS CROW AGACNP Mar 22, 2025 12:33
--- NOTE | 2025-03-22 15:23 | NUR ---
PER DR. SON, PLACED IN ORDER FOR PICC LINE. PATIENT NOTED TO BE HESITANT WHEN OBTAINING PICC LINE CONSENT. PATIENT ASKED IF HE COULD SPEAK TO DR. SON FIRST. CALLED DR. SON, DR. SON STATED TOMORROW HE WILL SPEAK TO PATIENT AND TO HOLD PICC LINE ORDERS.
[2025-03-22 16:00] VITALS: BP 144/72; PULSE 59; RESP 18; TEMP 98.6
--- NOTE | 2025-03-22 16:47 | PN ---
[facility] PROGRESS NOTE Date of Service: Mar 22, 2025 Time of Service: 16:46 SUBJECTIVE: Patient is a 54-year-old male with a past medical history of diabetes mellitus type 2, hyperlipidemia, hypertension who came in complaining of Wounds on 2nd toe of left foot and the big toe toe of right foot. Per the patient he noticed the wounds on Thursday night, patient did not have any associated pain. He tried some home remedies like peroxide, rubbing alcohol and petroleum and then he wrapped it with gauze. On he went to his primary care physician who inform Dr. Romero and Dr. Romero recommended the patient come to the ER. Patient does not have any associated fevers or chills. In the emergency department the CBC was unremarkable, the glucose was at 210 mg/dL, creatinine 1.5, BUN 39, no urinalysis has been collected or sent to lab, bilateral x-rays of bilateral feet show right foot arthritis. Additionally patient did not have any fever, tachycardia, tachypnea are leukocytosis FR he did not meet sepsis criteria. Patient was admitted for bilateral lower extremity wounds. 03/18/2025: Patient was seen in the ER 18 without any family present. Patient was awake alert x3 and in no acute respiratory distress. Patient had delayed capillary refill so we ordered arterial ultrasound of the bilateral lower extremities. Came back normal and his creatinine had improved to 1.3 from 1.5 at time of admission. Urinalysis came back positive so his urine has been sent for culture along with his blood. Patient has been started on Zosyn and vancomycin while we also ordered MRI for bilateral lower extremities. Patient is hyponatremic with sodium at 135, his ESR high at 67. Further treatment is based off on his image findings. 03/19/2025: Patient is seen and evaluated in the room 417. He has no symptoms today. Her vital signs are in the normal range. Her labs are normal except for hemoglobin is 12.7, sodium is 135, BUN is 28, glucose is 185. urine culture grew 10,000 to 50,000 CFU, mixed octavio contamination present. We ordered arterial US and it showed right lower extremity with 2049% stenosis of the proximal superficial femoral artery and distal popliteal artery with distal small-vessel disease evidenced by monophasic dorsalis pedis waveform, left lower extremity with hemodynamically significant 5080% stenosis of the mid superficial femoral artery. So we consulted cardiology and we are waiting for their recommendations. We are awaiting the results of MRI, aerobic and anaerobic cultures. 03/20/2025: Patient is seen and evaluated in the room 417. He has no new complaints. Final urine culture came back negative. Patient's aerobic culture showed staph aureus still waiting on sensitivity. Patient already on Zosyn & vancomycin. Still waiting for the MRI. As the patient is Dr. Romero's patient we discontinued wound care and consulted him instead. We are still waiting for Cardiology. 03/21/2025: Patient is seen and evaluated in the room 417. He has no new complaints. Patient's wound culture came back positive for Staphylococcus aureus pansensitive except resistant to erythromycin. Continuing the patient on Zosyn and vancomycin. Dr. Romero saw the patient and recommended MRI which we already ordered, he also changed the patient's wound dressing. ID was consulted who recommended Tdap shot and to continue her current antibiotics. We are still waiting on Cardiology. 03/22/2025: Patient is seen and evaluated in the room 417. He has no new complaints. Patient underwent MRI waiting for reports. Cardiology saw the patient and recommended an abdominal aortogram with bilateral runoff studies to assess his PAD. They also started the patient on routine statin therapy to target LDL less than 55, dual antiplatelet therapy with aspirin plus clopidogrel, venous Doppler bilateral lower extremities. Patient also has a outpatient Lexiscan Cardiolite stress test pending so they ordered it to be performed as an inpatient as he requires continued antibiotic and podiatry care. Patient underwent aorta with runoff CTA, venous Doppler study, Lexiscan stress test. The venous Doppler study showed no evidence of deep venous thrombosis in bilateral lower extremities. It showed a left Gibson's cyst measuring 2.7 x 1.8 x 3.5 cm. The Lexiscan stress test showed Normal pharmacologic nuclear stress test. The aorta with runoff CTA is still pending report. Per Cardiology the aorta with runoff CTA demonstrated adequate blood flow for wound healing and since the nuclear stress test show came back, cardiology recommended to continue atorvastatin 40 mg hs, continued DAPT, asa and plavix daily, Wound care per podiatry, Losartan/hctz and metoprolol for bp control. They also recommended to follow up in clinic in 2 weeks post discharge and with that they signed off. Patient is continued to be on Zosyn and vancomycin. REVIEW OF SYSTEMS CONSTITUTIONAL: Denies fevers, chills, or night sweats. No unintentional weight loss reported. NEUROLOGICAL: Denies headache, motor weakness, sensory deficit, vertigo/spinning sensation, gait abnormalities, or tremors. ENT: No hearing loss, rhinitis, rhinorrhea, hoarseness, or sore throat. CARDIOVASCULAR: Denies any exertional angina, dyspnea on exertion, orthopnea, paroxysmal nocturnal dyspnea, palpitations PULMONARY: Denies any shortness of breath, cough, phlegm/sputum, hemoptysis, pleuritic chest pain. GASTROINTESTINAL: Denies any type of dysphagia to either liquids or solids. Denies nausea, vomiting, abdominal pain, diarrhea, constipation, or changes in stool consistency or caliber. GENITOURINARY: Denies frequency, urgency, nocturia, hematuria or incontinence. ENDOCRINOLOGIC: Denies polyuria, polydipsia, polyphagia or heat/cold intolerances. DERMATOLOGIC: Wounds on 2nd toe of left foot and the big toe toe of right foot PHYSICAL EXAM GENERAL APPEARANCE: The patient is awake, alert, and oriented, in no acute cardiopulmonary distress. NEUROLOGICAL: Motor is 5/5 in bilateral upper and lower extremities proximal to distal. No sensory deficits. HEENT: Face is symmetric. Pupils are equal and reactive. Extraocular movements are intact. NECK: Supple. No JVD. No thyromegaly. No submental, submandibular, pre- /postauricular, occipital or supraclavicular lymphadenopathy. CHEST: Normal chest expansion. No Telemetry. LUNGS: Absence of any rales, rhonchi or any wheezing. CARDIOVASCULAR: Regular. S1 and S2 normal. No appreciable rubs, murmurs or gallops. ABDOMEN: Soft, nontender, and nondistended. There is no rebound, voluntary guarding, or rigidity. : Deferred. No Jose. EXTREMITIES: Non-edematous and not cyanotic. No clubbing. Delayed capillary refill. Pulses more prominent on right than left foot SKIN: Wounds on 2nd toe of left foot and the big toe toe of right foot Vital Signs (last 8hr) Date Time Temp Pulse Resp B/P (MAP) Pulse Ox O2 Delivery O2 Flow Rate FiO2 03/22/25 12:00 98.1 63 18 123/63 100 Room Air 21 LABS: Laboratory: Test 03/22/25 11:23 03/22/25 04:41 03/21/25 22:25 Range/Units Whole Blood Glucose 175 H 70-110 MG/DL White Blood Count 8.7 4.8-10.8 K/uL Red Blood Count 4.21 L 4.50-6.20 MIL/uL Hemoglobin 12.9 L 14.0-18.0 g/dL Hematocrit 38.5 L 42-54 % Mean Corpuscular Volume 91.4 79-99 fL Mean Corpuscular Hemoglobin 30.6 27.0-33.0 pg Mean Corpuscular Hemoglobin Concent 33.5 32.0-36.0 g/dL Red Cell Distribution Width 12.1 11.0-15.5 % Platelet Count 300 130-400 K/uL Mean Platelet Volume 9.4 7.5-10.5 fL Nucleated Red Blood Cells 0.0 0.0-0.19 % Sodium Level 135 L 136-145 mmol/L Potassium Level 3.9 3.5-5.1 mmol/L Chloride Level 104 101-111 mmol/L Carbon Dioxide Level 20 L 21-32 mmol/L Blood Urea Nitrogen 23 H 7-18 mg/dL Creatinine 1.1 0.5-1.3 mg/dL Glomerular Filtration Rate Calc 81 >90 mL/min Random Glucose 169 H 70-105 mg/dL Total Calcium 8.2 L 8.5-10.1 mg/dL Triglycerides Level 91 30-200 mg/dL Cholesterol Level 82 <200 mg/dL LDL Cholesterol 35 0-99 mg/dL HDL Cholesterol 39 29-71 mg/dL Vancomycin Level Trough 17.1 10.0-20.0 UG/ML Current Medications Medications (Trade) Dose Ordered Sig/Roula Route PRN Reason Start Time Stop Time Status Last Admin Dose Admin Acetaminophen (TYLenol 325MG TAB) 650 mg Q6H PRN PO TEMPERATURE GREATER THAN 101.5 03/17/25 23:00 04/16/25 22:59 Aspirin (Aspirin 81mg Chew Tab) 81 mg DAILY PO 03/20/25 09:00 04/19/25 08:59 03/22/25 11:48 81 MG Atorvastatin Calcium (LIPItor 40MG) 40 mg HS PO 03/19/25 21:00 04/18/25 20:59 03/21/25 20:38 40 MG Cefepime HCl (MAXipime 1 GM vial) 1 gm Q12H IVPB 03/17/25 22:30 03/17/25 22:46 DC Clopidogrel Bisulfate (plaVIX 75MG) 75 mg DAILY PO 03/23/25 09:00 04/22/25 08:59 HCTZ/Losartan Potassium (Hyzaar 50-12.5 Tablet) 2 tab DAILY PO 03/20/25 09:00 04/19/25 08:59 03/22/25 11:48 2 TAB Heparin Sodium (Porcine) (HEParin 5,000 UNIT VIAL) 5,000 unit BID SQ 03/18/25 09:00 04/17/25 08:59 03/22/25 11:54 5,000 UNIT Hydralazine HCl (APRESOLine 20MG INJ) 10 mg Q6H PRN IV For:SBP above 160;DBP above 90 03/17/25 23:00 04/16/25 22:59 Hydromorphone HCl (DiLAUDid 0.5MG INJ) 0.25 mg Q4H PRN IVP SEVERE PAIN (7-10) 03/17/25 23:00 03/22/25 22:59 Insulin Human Regular (humuLIN R 100 UNIT/ML 3ML) INSULIN SLIDING SCAL... ACHS SQ 03/18/25 07:30 04/17/25 07:29 03/22/25 06:34 4 UNIT Lactulose (Constulose 20gm/ 30ml Udcup) 20 gm BID PRN PO CONSTIPATION 03/17/25 23:00 04/16/25 22:59 Metoprolol Tartrate (loprESSOR) 50 mg BID PO 03/19/25 21:00 04/18/25 20:59 03/22/25 11:48 50 MG Ondansetron HCl (zoFRAN 4MG INJ) 4 mg Q6H PRN IV NAUSEA/VOMITING 03/17/25 23:00 04/16/25 22:59 Pantoprazole Sodium (PROTonix 40MG TAB) 40 mg DAILY PO 03/18/25 09:00 04/17/25 08:59 03/22/25 11:48 40 MG Piperacillin Sod/ Tazobactam Sod (Zosyn 3.375gm+NS 50ml) 3.375 gm Q8H IV 03/17/25 23:00 03/20/25 08:53 DC 03/20/25 05:09 3.375 GM Piperacillin Sod/ Tazobactam Sod (Zosyn 3.375gm+NS 50ml) 3.375 gm Q8H IV 03/20/25 13:00 03/30/25 12:59 03/22/25 15:16 3.375 GM Potassium Chloride 100 ml @ 100 mls/hr AD PRN IV POTASSIUM PROTOCOL 03/22/25 12:30 04/21/25 12:29 Potassium Chloride (K-Dur/Klor-Con 20meq) 20 meq AD PRN PO POTASSIUM PROTOCOL 03/22/25 12:30 04/21/25 12:29 Potassium Chloride (KCl 10% Elixir 20meq/15ml) 20 meq AD PRN PO POTASSIUM PROTOCOL 03/22/25 12:30 04/21/25 12:29 Topiramate (TopaMAX) 100 mg BID PO 03/19/25 21:00 04/18/25 20:59 03/22/25 11:48 100 MG Vancomycin HCl 500 ml @ 125 mls/hr Q24H IV 03/17/25 23:00 03/22/25 15:15 DC 03/22/25 00:18 125 MLS/HR Vancomycin HCl (Vancomycin Protocol) 1 each AD IV 03/17/25 22:30 03/22/25 15:15 DC DIAGNOSTICS / RADIOLOGY: [place] [address] IMAGING REPORT Signed PATIENT: JOSE DOTY MR#: [id number] : 1970 SEX: M AGE: 54 LOCATION: [facility] ORDER 1633 STATUS: ADM IN MEDICAL CENTER REPORT#: [id number] SERVICE 1630 REASON: dvt ORDERING PHYSICIAN: DESMOND MCGREGOR MD PROCEDURE: VENOUS FIDENCIO - US VENOUS DOPPLER BILATERAL BILATERAL LOWER EXTREMITY VENOUS DOPPLER CLINICAL HISTORY: DVT. TECHNIQUE: Duplex ultrasound evaluation of the bilateral lower extremity deep venous system was performed using grayscale imaging, compression maneuvers, color Doppler, and spectral Doppler analysis. COMPARISON: None. FINDINGS: Right Lower Extremity: The common femoral vein, great saphenous vein, profundal femoral vein, superficial femoral vein, popliteal vein are patent, demonstrate normal compressibility, and show normal color flow and spectral Doppler waveforms. The posterior tibial vein is patent and demonstrate normal compressibility, and show normal color flow and spectral Doppler waveforms. No intraluminal thrombus is identified. Normal respiratory variation and augmentation are noted. Left Lower Extremity: The common femoral vein, great saphenous vein, profundal femoral vein, superficial femoral vein and popliteal vein, are patent demonstrate normal compressibility, and show normal color flow and spectral Doppler waveforms. The posterior tibial vein is patent and demonstrate normal compressibility, and show normal color flow and spectral Doppler waveforms. No intraluminal thrombus is identified. Normal respiratory variation and augmentation are noted. A well-defined anechoic fluid collection is seen in the left popliteal fossa, measuring 2.7 x 1.8 x 3.5 cm, consistent with a Bakers cyst. IMPRESSION: 1. No evidence of deep venous thrombosis in the bilateral lower extremities. 2. Left Bakers cyst, measuring 2.7 x 1.8 x 3.5 cm. /[place] DICTATED BY: CARLY MILLER MD DATE: 03/22/25358 ELECTRONICALLY SIGNED BY: CARLY MILLER MD DATE: 03/22/25358 [place] [id number] IMAGING REPORT Signed PATIENT: JOSE DOTY MR#: [id number] : 1970 SEX: M AGE: 54 LOCATION: [facility] ORDER 1633 STATUS: ADM IN REPORT#: [id number] SERVICE 0600 REASON: dominguez ORDERING PHYSICIAN: DESMOND MCGREGOR MD PROCEDURE: CARD BHARATI - NM LEXISCAN CARDIOLITE APPROVED REPORT Height: 5 ft 5in Weight: 280 lbs TEST INDICATIONS DOMINGUEZ The imaging protocol used to acquire images was Rest Tc-99m/stress Tc-99m 1 day Consent: The procedure was explained and understood by the patient. Informerd consent was witnessed by Mary Adrian RN First, low dose rest was performed then high dose stress. RESTING DATA: The resting ekg shows: NSR Rest SPECT myocardial perfusion imaging was performed in supine position minutes following the intravenous injection of 11 mCi of Tc-99 Sestamibi. Time of rest injection: 06:38: Date: 03/22/2025 PHARMACOLOGIC STRESS: Pharmacologic stress test was performed by injecting regadenoson 0.4 mg IV push followed by the intravenous injection of 30 mCi of Tc-99 Sestamibi. Time of stress injection: 08:20: Date: 03/22/2025 Heart Rate at time of stress injection: 57 bpm. Gated Stress SPECT was performed 60 minutes after stress injection. The images were gated to evaluate regional wall motion and calculate left ventricular ejection fraction. STRESS DETAILS Reason for Termination: Infusion complete Stress Symptoms: Dyspnea, Chest pressure Max HR Achieved: 76 bpm % of APMHR Achieved: 53 Max Blood Pressure: 115/58 mmHg Stress ECG: NSR Study quality was good. Lung uptake was Normal. Artifact: No artifact IMPRESSION Normal pharmacologic nuclear stress test. Conclusion Normal perfusion. TID 1.02. LVEF 62% DICTATED BY: MICAH PRIETO MD DATE: 03/22/25 0719 ELECTRONICALLY SIGNED BY: MICAH PRIETO MD DATE: 03/22/25 1115 ASSESSMENT: Diabetic foot ulcers to bilateral feet, left foot 2nd toe, right foot big toe, POA Stenosis of the lower limb arteries, POA Uncontrolled Diabetes mellitius type2, POA CKD stage IIIB, POA UTI, POA Right foot arthritis, POA] PLAN: Diabetic foot ulcers to bilateral feet, left foot 2nd toe, right foot big toe, POA * Patient has foot ulcers to bilateral feet, left foot 2nd toe, right foot big toe, POA * Patient's foot x-rays came back negative * MRI has been ordered * Discontinued wound care, consulted Podiatry * Patient's wound culture came back positive for staph aureus pansensitive with resistance only to Erythromycin * Patient continued on Zosyn and vancomycin Stenosis of the lower limb arteries, POA * We ordered arterial US and it showed right lower extremity with 2049% stenosis of the proximal superficial femoral artery and distal popliteal artery with distal small-vessel disease evidenced by monophasic dorsalis pedis waveform, left lower extremity with hemodynamically significant 5080% stenosis of the mid superficial femoral artery. So we consulted cardiology. * Cardiology recommended routine statin therapy to target LDL less than 55. routine dual antiplatelet therapy with aspirin plus clopidogrel, proceed with an abdominal aortogram with bilateral runoff studies to assess his PAD. * abdominal aortogram with bilateral runoff performed waiting on the report * Venous Doppler study did not show any DVTs Uncontrolled Diabetes mellitius type2, POA * Patient's random glucose is at 243>168>169, his A1c is at 7.9 * Patient on insulin sliding scale CKD stage IIIB, POA: * Patient's creatinine on admission was 1.5 But it has improved to 1.3>1.1 * Patient's GFR at 66>81>81 UTI, POA * Patient's urinalysis urinalysis came back positive * Patient is on vancomycin and Zosyn * Urine culture came back negative On GI protocol prophylaxis with pantoprazole 40 mg p.o. On DVT prophylaxis with heparin sodium 5000 units subQ We will request labs in am Further orders to follow depending on above results ATTESTATION BY PHYSICIAN I have seen and examined the patient. I reviewed the documentation, medical decision making, and treatment plan as noted by the resident physician above. I agree with the findings and plan of care. Leroy Urbano IV, MD, ABHINAV MD Mar 22, 2025 16:47
[2025-03-22 20:00] VITALS: BP 150/71; PULSE 53; RESP 14; TEMP 97.6; O2SAT 99
--- NOTE | 2025-03-22 20:05 | HMCIMG ---
EXAM: MR LEFT LOWER EXTREMITY WITHOUT IV CONTRAST, FOOT HISTORY Left foot osteomyelitis. TECHNIQUE Multisequence, multiplanar MR imaging of the left foot was performed without intravenous contrast, including sagittal, coronal, and axial T1- and T2-weighted fat-suppressed and STIR sequences. COMPARISON None. FINDINGS LIGAMENTS The medial and lateral collateral ligament complexes and the Lisfranc ligament are intact without thickening, discontinuity, or abnormal signal. TENDONS The Achilles, flexor, extensor, and peroneal tendons are normal in caliber and signal, without tear or tenosynovitis. BONES There is abnormal marrow signal within the distal phalanx of the left second toe, with T1 hypointensity and T2/STIR hyperintensity, consistent with osteomyelitis. No acute fracture or aggressive osseous lesion is identified elsewhere in the visualized foot. MUSCLES AND SOFT TISSUES There is overlying dorsal soft-tissue swelling and a cutaneous defect adjacent to the distal phalanx of the second toe. Diffuse soft-tissue edema consistent with cellulitis involves the dorsal aspect of the forefoot, more pronounced around the affected digit. No discrete rim-forming fluid collection is demonstrated to suggest a drainable abscess. The intrinsic foot muscles otherwise demonstrate preserved bulk without focal mass. JOINTS AND FLUID No significant joint effusion or imaging evidence of septic arthritis is identified in the visualized interphalangeal or metatarsophalangeal joints. SINUS TARSI, TARSAL TUNNEL, AND PLANTAR FASCIA The sinus tarsi, tarsal tunnel, and plantar fascia are unremarkable. CARTILAGE The visualized articular cartilage appears preserved without focal defect. IMPRESSION MR findings consistent with osteomyelitis of the distal phalanx of the left second toe with overlying dorsal cutaneous defect and adjacent soft-tissue swelling, and associated dorsal forefoot cellulitis; no discrete drainable abscess. /[place]
--- NOTE | 2025-03-22 20:06 | HMCIMG ---
EXAM: MR RIGHT LOWER EXTREMITY WITHOUT IV CONTRAST, FOOT HISTORY Osteomyelitis of the right fifth digit TECHNIQUE Multisequence, multiplanar MR imaging of the right foot was performed without intravenous contrast. Sagittal T1 FSE, sagittal T2 fat-suppressed, sagittal STIR, coronal PD fat-suppressed, coronal T1 FSE, coronal STIR, axial T2 fat-suppressed, and axial STIR sequences were obtained. COMPARISON None. FINDINGS LIGAMENTS Medial and lateral collateral ligament complexes of the included foot are intact without thickening, discontinuity, or abnormal signal. The Lisfranc ligament is preserved without edema or widening of the tarsometatarsal joints. TENDONS The visualized Achilles, flexor, extensor, and peroneal tendons are normal in caliber and signal intensity without tear or tenosynovitis. BONES There is diffuse abnormal marrow signal involving the proximal, middle, and distal phalanges of the fifth toe, characterized by T1 hypointensity and T2/STIR hyperintensity, consistent with osteomyelitis. There is mild osteolysis of the involved phalanges without a pathologic fracture or discrete intraosseous abscess. No aggressive osseous lesion is identified elsewhere in the foot. SOFT TISSUES AND MUSCLES There is a dorsal lateral cutaneous ulcer overlying the fifth digit with subjacent soft-tissue edema. Extensive cellulitis and myositis involve the dorsal soft tissues of the forefoot, more pronounced around the fifth digit, without a discrete rim-forming fluid collection to suggest a drainable abscess. The intrinsic foot muscles otherwise show preserved bulk without focal mass. JOINTS AND FLUID No significant joint effusion is present within the visualized interphalangeal or metatarsophalangeal joints. No septic arthritis is demonstrated. NEUROVASCULAR STRUCTURES The visualized neurovascular bundles are grossly unremarkable in course and caliber, within the limits of this examination. PLANTAR FASCIA, SINUS TARSI, AND TARSAL TUNNEL The plantar fascia, sinus tarsi, and tarsal tunnel are unremarkable. IMPRESSION MR findings consistent with osteomyelitis involving the proximal, middle, and distal phalanges of the right fifth toe, with overlying dorsolateral cutaneous ulceration and extensive dorsal cellulitis and myositis of the forefoot; no discrete drainable soft-tissue or intraosseous abscess identified. /[place]
[2025-03-23] VITALS: BP 101/40; PULSE 64; RESP 16; TEMP 97.9
[2025-03-23 04:00] VITALS: BP 103/70; PULSE 64; RESP 14; TEMP 98
[2025-03-23 05:04] LABS: NUCLEATED RED BLOOD CELLS 0.0 % (0.0-0.19); PLATELET COUNT (AUTO) 299.0 K/uL (130-400); RED BLOOD CELL COUNT(AUTO) 4.18 MIL/uL (4.50-6.20); RED CELL DISTRIBUTION WIDTH 12.1 % (11.0-15.5); WHITE BLOOD COUNT (AUTO) 8.1 K/uL (4.8-10.8)
[2025-03-23 05:27] LABS: CREATININE 1.2 mg/dL (0.5-1.3); GLOMERULAR FILTR. RATE CALC 73.0 mL/min (>90); GLUCOSE,RANDOM 185.0 mg/dL (70-105); SODIUM SERUM 137.0 mmol/L (136-145); UREA NITROGEN, BLOOD 25.0 mg/dL (7-18)
[2025-03-23 08:00] VITALS: BP 115/71; PULSE 65; RESP 18; TEMP 97.8; O2SAT 98
--- NOTE | 2025-03-23 08:05 | HMCIMG ---
EXAM: CTA Aorta Runoff with IV contrast CLINICAL HISTORY: Evaluation of the peripheral arterial disease. TECHNIQUE: Thin collimated axial CTA images of the abdomen, pelvis, and bilateral lower extremities were obtained, with sagittal and coronal reformatted images also submitted. A CT scan is done according to ALARA (As Low As Reasonably Achievable). CONTRAST: Yes COMPARISON: Prior arterial Doppler dated March 18, 2025. FINDINGS: Abdominal aorta: Unremarkable abdominal aorta, celiac trunk, superior mesenteric artery, inferior mesenteric artery, and bilateral renal arteries. Aortic Bifurcation: Unremarkable. Bilateral Common, origins of the internal, and external Iliac arteries: Unremarkable. Bilateral Common femoral, the origin of the deep femoral, and Superficial femoral arteries: Unremarkable. Bilateral Popliteal arteries: Unremarkable. Tibio-peroneal trifurcation: Unremarkable. Anterior Tibial, Posterior Tibial, and Peroneal arteries: Diffuse narrowing of the right peroneal artery in its mid and distal portions, with more than 40-50% narrowing. Approximately 20-30% narrowing of the left posterior tibial artery and 30-40% narrowing of the left peroneal artery in its mid to distal one third. Dorsalis Pedis artery: Unremarkable. Normal 3-vessel flow to the foot. Osseous and Soft tissue structures: No acute abnormality, moderate degenerative changes in the sacroiliac, superolateral hip joint, and multilevel severe degenerative facet arthropathy in the lumbar spine. Moderate degenerative changes in the parietal sacroiliac and superolateral hip joint. Moderate to severe tricompartmental osteoarthritic changes. Mild bilateral knee joint effusion. Unruptured Gibson's cyst in the left popliteal fossa. Moderate degenerative changes in the tibiotalar, talofibular, intertarsal, tarsometatarsal, metatarsophalangeal, and interphalangeal joints. Other findings: No acute intra-abdominal pathology. Small omental fat containing right inguinal hernia. The remainder of the abdomen and pelvis appear unremarkable. IMPRESSION: Subtle atherosclerotic calcification of the bilateral common femoral, superficial femoral, and popliteal artery. Normal contrast opacification of the abdominal aorta and its branches, infrarenal aorta, bilateral common iliac, internal and external iliac artery, common femoral profunda femoris, superficial femoral, popliteal artery, bilateral anterior tibial arteries, and dorsalis pedis artery. Diffuse narrowing of the right peroneal artery in its mid and distal portions, with more than 40-50% narrowing. Approximately 20-30% narrowing of the left posterior tibial artery and 30-40% narrowing of the left peroneal artery in its mid to distal one third. Moderate degenerative changes in the bilateral sacroiliac and bilateral hip joints. Moderate to severe degenerative changes in the bilateral knee joint and moderate changes in the tibiotalar and talofibular intertarsal joints. No acute osseous abnormality. Compared with the prior study, which demonstrated multilevel atherosclerotic calcification of the lower-limb arteries, no hemodynamically significant narrowing or occlusion was identified. Normal contrast opacification of the right superficial femoral artery and triple-vessel blood flow to the foot. /[place]
--- NOTE | 2025-03-23 08:54 | PN ---
This gentleman was hospitalized because of bilateral foot ulcerations involving some of his toes and has undergone a debridement by Podiatry. The patient had been evaluated with arterial flow studies and CT angiogram. He does have an evaluation with an echo that revealed preserved LV systolic function and no significant valvular pathology. This patient also has a history of hypertension, hyperlipidemia, diabetes mellitus type 2, as well as obesity. He has history of chronic venous insufficiency and prior history of chronic kidney disease at stage 3 with normal renal parameters on this admission. Given the patient's findings on his foot ulcers, an evaluation was obtained with CT angiogram with bilateral runoffs. The actual final report has not been generated by Radiology; however, I have personally evaluated the CT angiogram and I do not think that the patient has any major vascular compromise. He does have adequate flow to the level of the ankles bilaterally. He likely has some element of microvascular disease. Based upon my evaluation of the angiographic studies, I do not believe that this patient is a candidate for any percutaneous or surgical intervention that would make a change in his overall status. This gentleman is currently maintained on clopidogrel, Zosyn, losartan with hydrochlorothiazide, baby aspirin, atorvastatin, topiramate, metoprolol, pantoprazole, subcutaneous heparin, insulin, and p.r.n. medications. I think it is prudent to continue with conservative medical management given the patient's findings. He may benefit from addition of cilostazol celestial if he continues to have evidence of poor healing and none and additional infection. From the cardiac standpoint, we will not make any additional recommendations. He has had a Lexiscan that was fairly benign. We will be more than happy to evaluate this patient if he desires. Otherwise, we will see him as an outpatient. TID: [id number] RECEIPT: [id number]
--- NOTE | 2025-03-23 10:08 | NUR ---
HELD MEDICATION PER DR HOWARD, OKAY TO GIVE ASPIRIN AND PLAVIX BUT TO HOLD HEPARIN UNTIL FURTHER NOTICE
--- NOTE | 2025-03-23 10:43 | PN ---
[facility] PROGRESS NOTE Date of Service: Mar 23, 2025 Time of Service: 10:43 SUBJECTIVE: Patient is a 54-year-old male with a past medical history of diabetes mellitus type 2, hyperlipidemia, hypertension who came in complaining of Wounds on 2nd toe of left foot and the big toe toe of right foot. Per the patient he noticed the wounds on Thursday night, patient did not have any associated pain. He tried some home remedies like peroxide, rubbing alcohol and petroleum and then he wrapped it with gauze. On he went to his primary care physician who inform Dr. Romero and Dr. Romero recommended the patient come to the ER. Patient does not have any associated fevers or chills. In the emergency department the CBC was unremarkable, the glucose was at 210 mg/dL, creatinine 1.5, BUN 39, no urinalysis has been collected or sent to lab, bilateral x-rays of bilateral feet show right foot arthritis. Additionally patient did not have any fever, tachycardia, tachypnea are leukocytosis FR he did not meet sepsis criteria. Patient was admitted for bilateral lower extremity wounds. 03/18/2025: Patient was seen in the ER 18 without any family present. Patient was awake alert x3 and in no acute respiratory distress. Patient had delayed capillary refill so we ordered arterial ultrasound of the bilateral lower extremities. Came back normal and his creatinine had improved to 1.3 from 1.5 at time of admission. Urinalysis came back positive so his urine has been sent for culture along with his blood. Patient has been started on Zosyn and vancomycin while we also ordered MRI for bilateral lower extremities. Patient is hyponatremic with sodium at 135, his ESR high at 67. Further treatment is based off on his image findings. 03/19/2025: Patient is seen and evaluated in the room 417. He has no symptoms today. Her vital signs are in the normal range. Her labs are normal except for hemoglobin is 12.7, sodium is 135, BUN is 28, glucose is 185. urine culture grew 10,000 to 50,000 CFU, mixed octavio contamination present. We ordered arterial US and it showed right lower extremity with 2049% stenosis of the proximal superficial femoral artery and distal popliteal artery with distal small-vessel disease evidenced by monophasic dorsalis pedis waveform, left lower extremity with hemodynamically significant 5080% stenosis of the mid superficial femoral artery. So we consulted cardiology and we are waiting for their recommendations. We are awaiting the results of MRI, aerobic and anaerobic cultures. 03/20/2025: Patient is seen and evaluated in the room 417. He has no new complaints. Final urine culture came back negative. Patient's aerobic culture showed staph aureus still waiting on sensitivity. Patient already on Zosyn & vancomycin. Still waiting for the MRI. As the patient is Dr. Romero's patient we discontinued wound care and consulted him instead. We are still waiting for Cardiology. 03/21/2025: Patient is seen and evaluated in the room 417. He has no new complaints. Patient's wound culture came back positive for Staphylococcus aureus pansensitive except resistant to erythromycin. Continuing the patient on Zosyn and vancomycin. Dr. Romero saw the patient and recommended MRI which we already ordered, he also changed the patient's wound dressing. ID was consulted who recommended Tdap shot and to continue her current antibiotics. We are still waiting on Cardiology. 03/22/2025: Patient is seen and evaluated in the room 417. He has no new complaints. Patient underwent MRI waiting for reports. Cardiology saw the patient and recommended an abdominal aortogram with bilateral runoff studies to assess his PAD. They also started the patient on routine statin therapy to target LDL less than 55, dual antiplatelet therapy with aspirin plus clopidogrel, venous Doppler bilateral lower extremities. Patient also has a outpatient Lexiscan Cardiolite stress test pending so they ordered it to be performed as an inpatient as he requires continued antibiotic and podiatry care. Patient underwent aorta with runoff CTA, venous Doppler study, Lexiscan stress test. The venous Doppler study showed no evidence of deep venous thrombosis in bilateral lower extremities. It showed a left Gibson's cyst measuring 2.7 x 1.8 x 3.5 cm. The Lexiscan stress test showed Normal pharmacologic nuclear stress test. The aorta with runoff CTA is still pending report. Per Cardiology the aorta with runoff CTA demonstrated adequate blood flow for wound healing and since the nuclear stress test show came back, cardiology recommended to continue atorvastatin 40 mg hs, continued DAPT, asa and plavix daily, Wound care per podiatry, Losartan/hctz and metoprolol for bp control. They also recommended to follow up in clinic in 2 weeks post discharge and with that they signed off. Patient is continued to be on Zosyn and vancomycin. REVIEW OF SYSTEMS CONSTITUTIONAL: Denies fevers, chills, or night sweats. No unintentional weight loss reported. NEUROLOGICAL: Denies headache, motor weakness, sensory deficit, vertigo/spinning sensation, gait abnormalities, or tremors. ENT: No hearing loss, rhinitis, rhinorrhea, hoarseness, or sore throat. CARDIOVASCULAR: Denies any exertional angina, dyspnea on exertion, orthopnea, paroxysmal nocturnal dyspnea, palpitations PULMONARY: Denies any shortness of breath, cough, phlegm/sputum, hemoptysis, pleuritic chest pain. GASTROINTESTINAL: Denies any type of dysphagia to either liquids or solids. Denies nausea, vomiting, abdominal pain, diarrhea, constipation, or changes in stool consistency or caliber. GENITOURINARY: Denies frequency, urgency, nocturia, hematuria or incontinence. ENDOCRINOLOGIC: Denies polyuria, polydipsia, polyphagia or heat/cold intolerances. DERMATOLOGIC: Wounds on 2nd toe of left foot and the big toe toe of right foot PHYSICAL EXAM GENERAL APPEARANCE: The patient is awake, alert, and oriented, in no acute cardiopulmonary distress. NEUROLOGICAL: Motor is 5/5 in bilateral upper and lower extremities proximal to distal. No sensory deficits. HEENT: Face is symmetric. Pupils are equal and reactive. Extraocular movements are intact. NECK: Supple. No JVD. No thyromegaly. No submental, submandibular, pre- /postauricular, occipital or supraclavicular lymphadenopathy. CHEST: Normal chest expansion. No Telemetry. LUNGS: Absence of any rales, rhonchi or any wheezing. CARDIOVASCULAR: Regular. S1 and S2 normal. No appreciable rubs, murmurs or gallops. ABDOMEN: Soft, nontender, and nondistended. There is no rebound, voluntary guarding, or rigidity. : Deferred. No Jose. EXTREMITIES: Non-edematous and not cyanotic. No clubbing. Delayed capillary refill. Pulses more prominent on right than left foot SKIN: Wounds on 2nd toe of left foot and the big toe toe of right foot Vital Signs (last 8hr) Date Time Temp Pulse Resp B/P (MAP) Pulse Ox O2 Delivery O2 Flow Rate FiO2 03/23/25 08:00 97.9 65 18 115/71 98 Room Air 03/23/25 04:00 98.1 64 14 103/70 99 Room Air LABS: Laboratory: Test 12/18/25 05:57 03/23/25 04:43 03/22/25 04:41 03/21/25 22:25 Range/Units Whole Blood Glucose 166 H 70-110 MG/DL White Blood Count 8.1 4.8-10.8 K/uL Red Blood Count 4.18 L 4.50-6.20 MIL/uL Hemoglobin 12.9 L 14.0-18.0 g/dL Hematocrit 38.1 L 42-54 % Mean Corpuscular Volume 91.1 79-99 fL Mean Corpuscular Hemoglobin 30.9 27.0-33.0 pg Mean Corpuscular Hemoglobin Concent 33.9 32.0-36.0 g/dL Red Cell Distribution Width 12.1 11.0-15.5 % Platelet Count 299 130-400 K/uL Mean Platelet Volume 9.4 7.5-10.5 fL Nucleated Red Blood Cells 0.0 0.0-0.19 % Sodium Level 137 136-145 mmol/L Potassium Level 4.2 3.5-5.1 mmol/L Chloride Level 105 101-111 mmol/L Carbon Dioxide Level 23 21-32 mmol/L Blood Urea Nitrogen 25 H 7-18 mg/dL Creatinine 1.2 0.5-1.3 mg/dL Glomerular Filtration Rate Calc 73 >90 mL/min Random Glucose 185 H 70-105 mg/dL Total Calcium 8.6 8.5-10.1 mg/dL Triglycerides Level 91 30-200 mg/dL Cholesterol Level 82 <200 mg/dL LDL Cholesterol 35 0-99 mg/dL HDL Cholesterol 39 29-71 mg/dL Vancomycin Level Trough 17.1 10.0-20.0 UG/ML Current Medications Medications (Trade) Dose Ordered Sig/[place] Route PRN Reason Start Time Stop Time Status Last Admin Dose Admin Acetaminophen (TYLenol 325MG TAB) 650 mg Q6H PRN PO TEMPERATURE GREATER THAN 101.5 03/17/25 23:00 04/16/25 22:59 Aspirin (Aspirin 81mg Chew Tab) 81 mg DAILY PO 03/20/25 09:00 04/19/25 08:59 03/23/25 09:17 81 MG Atorvastatin Calcium (LIPItor 40MG) 40 mg HS PO 03/19/25 21:00 04/18/25 20:59 03/22/25 21:04 40 MG Cefazolin Sodium (Ancef) 2 gm Q8H IVPB 03/23/25 12:00 04/13/25 11:59 Cefepime HCl (MAXipime 1 GM vial) 1 gm Q12H IVPB 03/17/25 22:30 03/17/25 22:46 DC Clopidogrel Bisulfate (plaVIX 75MG) 75 mg DAILY PO 03/23/25 09:00 04/22/25 08:59 03/23/25 10:06 75 MG Enoxaparin Sodium (Lovenox) 40 mg DAILY SQ 03/23/25 10:30 04/22/25 10:29 HCTZ/Losartan Potassium (Hyzaar 50-12.5 Tablet) 2 tab DAILY PO 03/20/25 09:00 04/19/25 08:59 03/23/25 09:17 2 TAB Heparin Sodium (Porcine) (HEParin 5,000 UNIT VIAL) 5,000 unit BID SQ 03/18/25 09:00 03/23/25 10:24 DC 03/22/25 21:12 5,000 UNIT Hydralazine HCl (APRESOLine 20MG INJ) 10 mg Q6H PRN IV For:SBP above 160;DBP above 90 03/17/25 23:00 04/16/25 22:59 Hydromorphone HCl (DiLAUDid 0.5MG INJ) 0.25 mg Q4H PRN IVP SEVERE PAIN (7-10) 03/17/25 23:00 03/22/25 23:00 DC Insulin Human Regular (humuLIN R 100 UNIT/ML 3ML) INSULIN SLIDING SCAL... ACHS SQ 03/18/25 07:30 04/17/25 07:29 03/22/25 06:34 4 UNIT Lactulose (Constulose 20gm/ 30ml Udcup) 20 gm BID PRN PO CONSTIPATION 03/17/25 23:00 04/16/25 22:59 Metoprolol Tartrate (loprESSOR) 50 mg BID PO 03/19/25 21:00 04/18/25 20:59 03/22/25 11:48 50 MG Ondansetron HCl (zoFRAN 4MG INJ) 4 mg Q6H PRN IV NAUSEA/VOMITING 03/17/25 23:00 04/16/25 22:59 Pantoprazole Sodium (PROTonix 40MG TAB) 40 mg DAILY PO 03/18/25 09:00 04/17/25 08:59 03/23/25 09:17 40 MG Piperacillin Sod/ Tazobactam Sod (Zosyn 3.375gm+NS 50ml) 3.375 gm Q8H IV 03/17/25 23:00 03/20/25 08:53 DC 03/20/25 05:09 3.375 GM Piperacillin Sod/ Tazobactam Sod (Zosyn 3.375gm+NS 50ml) 3.375 gm Q8H IV 03/20/25 13:00 03/23/25 10:16 DC 03/23/25 04:21 3.375 GM Potassium Chloride 100 ml @ 100 mls/hr AD PRN IV POTASSIUM PROTOCOL 03/22/25 12:30 04/21/25 12:29 Potassium Chloride (K-Dur/Klor-Con 20meq) 20 meq AD PRN PO POTASSIUM PROTOCOL 03/22/25 12:30 04/21/25 12:29 Potassium Chloride (KCl 10% Elixir 20meq/15ml) 20 meq AD PRN PO POTASSIUM PROTOCOL 03/22/25 12:30 04/21/25 12:29 Topiramate (TopaMAX) 100 mg BID PO 03/19/25 21:00 04/18/25 20:59 03/23/25 09:17 100 MG Vancomycin HCl 500 ml @ 125 mls/hr Q24H IV 03/17/25 23:00 03/22/25 15:15 DC 03/22/25 00:18 125 MLS/HR Vancomycin HCl (Vancomycin Protocol) 1 each AD IV 03/17/25 22:30 03/22/25 15:15 DC DIAGNOSTICS / RADIOLOGY: [ ] ASSESSMENT: Diabetic foot ulcers to bilateral feet, left foot 2nd toe, right foot big toe, POA Stenosis of the lower limb arteries, POA Uncontrolled Diabetes mellitius type2, POA CKD stage IIIB, POA UTI, POA Right foot arthritis, POA] PLAN: Diabetic foot ulcers to bilateral feet, left foot 2nd toe, right foot big toe, POA * Patient has foot ulcers to bilateral feet, left foot 2nd toe, right foot big toe, POA * Patient's foot x-rays came back negative * MRI has been ordered * Discontinued wound care, consulted Podiatry * Patient's wound culture came back positive for staph aureus pansensitive with resistance only to Erythromycin * Patient continued on Zosyn and vancomycin Stenosis of the lower limb arteries, POA * We ordered arterial US and it showed right lower extremity with 2049% stenosis of the proximal superficial femoral artery and distal popliteal artery with distal small-vessel disease evidenced by monophasic dorsalis pedis waveform, left lower extremity with hemodynamically significant 5080% stenosis of the mid superficial femoral artery. So we consulted cardiology. * Cardiology recommended routine statin therapy to target LDL less than 55. routine dual antiplatelet therapy with aspirin plus clopidogrel, proceed with an abdominal aortogram with bilateral runoff studies to assess his PAD. * abdominal aortogram with bilateral runoff performed waiting on the report * Venous Doppler study did not show any DVTs Uncontrolled Diabetes mellitius type2, POA * Patient's random glucose is at 243>168>169, his A1c is at 7.9 * Patient on insulin sliding scale CKD stage IIIB, POA: * Patient's creatinine on admission was 1.5 But it has improved to 1.3>1.1 * Patient's GFR at 66>81>81 UTI, POA * Patient's urinalysis urinalysis came back positive * Patient is on vancomycin and Zosyn * Urine culture came back negative On GI protocol prophylaxis with pantoprazole 40 mg p.o. On DVT prophylaxis with heparin sodium 5000 units subQ We will request labs in am Further orders to follow depending on above results LINDA HOWARD MD Mar 23, 2025 10:43
[2025-03-23] MEDS: ENOXAPARIN SODIUM 40 MG/0.4 ML SYRINGE SQ SCH (10:44)
[2025-03-23 11:23] LABS: INR 1.0 (0.85-1.15)
--- NOTE | 2025-03-23 11:28 | PN ---
SUBJECTIVE: The patient is a very pleasant 54-year-old diabetic male, who was followed up for an ulcer to the right fifth digit, left second digit. The patient had MRIs performed. The results of the MRI on the right has shown osteomyelitis involving proximal, middle, and distal phalanx of the right fifth toe. The results of the MRI on the left have shown osteomyelitis distal phalanx of the left second toe. The patient has currently been afebrile and his white count is within normal limits at 8.7, H and H 12.9, and 38.5. The patient is currently receiving the IV Zosyn. The patient's cultures, Staphylococcus aureus non-MRSA. Infectious Disease is recommended PICC line placement for 6 weeks of IV antibiotics. I discussed treatment options with the patient, both nonsurgical and surgical. Surgical would entail amputation of the fifth toe on the right and the second toe on the left. The patient is refusing amputation surgery and wants to proceed with local wound care and IV antibiotic and PICC line placement. REVIEW OF SYSTEMS: CONSTITUTIONAL: No chills, no fevers, no night sweats. GASTROINTESTINAL: No nausea or vomiting. No diarrhea. HEENT: No problems with eyes, ears, nose, or throat. CARDIOVASCULAR: No current chest pain. He has a CTA of his abdominal aorta with runoff results pending. EXTREMITIES: The patient has strongly palpable pedal pulses. MUSCULOSKELETAL: Osteomyelitis of fifth digit distal middle proximal phalanx right. Osteomyelitis of second digit left distal phalanx. INTEGUMENTARY: Ulcerations in distal tip of the left second toe, dorsal aspect of the right fifth toe. OBJECTIVE: On examination today, left second toe ulcer is clean and granular. Right fifth toe ulcer is clean and granular. Left second toe ulcer 5 x 5 x 1 mm. Fifth toe ulcer on the right 3 cm x 2 cm x 1 mm. It has a mixed granular fibrotic base on the right, clean granular base on the left. ASSESSMENT: Ulcer, left second toe with distal phalanx osteomyelitis, ulcer, right fifth toe with distal middle and proximal phalanx osteomyelitis. PLAN: The patient is currently receiving IV Zosyn for Infectious Disease. I discussed treatment options with the patient, both conservative and surgical. The patient is deferring any amputation surgery and wants local wound care and IV antibiotics. We will continue with Hydrofera Blue dressings. We will continue with antibiotics per infectious disease. We will continue to follow the patient closely. TID: [id number] RECEIPT: [id number]
[2025-03-23 12:00] VITALS: BP 120/63; PULSE 65; RESP 18; TEMP 98.2
--- NOTE | 2025-03-23 12:23 | PN ---
INFECTIOUS DISEASE PROGRESS NOTE Date of Service: Mar 23, 2025 SUBJECTIVE: This is a 54-year-old male patient who was seen and examined at bedside in room 417. Patient was updated with results of the MRI of bilateral feet showing osteomyelitis to both feet. We will discontinue Zosyn and start patient on cefazolin 2 g IV every8 hours. We [address] PICC line and have case management evaluate for referral to [facility] for outpatient IV antibiotics for 6 weeks. Prescription was written and patient made aware of this plan. PHYSICAL EXAM EYES: Anicteric. Pupils equal and reactive. HENT: No oral thrush seen, moist Oral mucosa NECK: Supple, no JVD or thyromegaly. LUNGS: Good air entry. No rales, no rhonchi. CARDIOVASCULAR: S1, S2 regular. No murmur heard. ABDOMEN: Soft, non tender, bowel sounds present, CENTRAL NERVOUS SYSTEM: Awake, alert, oriented x 3. SKIN: No rashes, no swelling. LYMPHATICS: No peripheral lymphadenopathy MUSCULOSKELETAL: No joint swelling, erythema or tenderness. EXTREMITIES: No cyanosis or clubbing. Left 2nd toe wound and right 5th toe wound. BACK: No deformity, no pressure ulcer. GENITOURINARY: No dysuria or hematuria Vital Sign (Last 12 Hours) 03/23/25 03/23/25 03/23/25 04:00 08:00 08:00 Temp 98.1 97.9 Pulse 64 65 Resp 14 18 B/P (MAP) 103/70 115/71 Pulse Ox 99 98 98 O2 Delivery Room Air Room Air Room Air* O2 Flow Rate 0 FiO2 21 Intake & Output (last 24hrs) 03/22/25 03/22/25 03/23/25 15:00 23:00 07:00 Intake Total 1250.0 ml Balance 1250.0 ml LABS: Laboratory: Test 03/23/25 12:10 03/23/25 11:00 03/23/25 04:43 03/22/25 04:41 Range/Units Whole Blood Glucose 224 H 70-110 MG/DL Bedside Glucose Comment Notified Nurse Prothrombin Time 10.6 9.6-11.6 SEC Prothromb Time International Ratio 1.00 0.85-1.15 Activated Partial Thromboplast Time 26.6 26.3-35.5 SEC White Blood Count 8.1 4.8-10.8 K/uL Red Blood Count 4.18 L 4.50-6.20 MIL/uL Hemoglobin 12.9 L 14.0-18.0 g/dL Hematocrit 38.1 L 42-54 % Mean Corpuscular Volume 91.1 79-99 fL Mean Corpuscular Hemoglobin 30.9 27.0-33.0 pg Mean Corpuscular Hemoglobin Concent 33.9 32.0-36.0 g/dL Red Cell Distribution Width 12.1 11.0-15.5 % Platelet Count 299 130-400 K/uL Mean Platelet Volume 9.4 7.5-10.5 fL Nucleated Red Blood Cells 0.0 0.0-0.19 % Sodium Level 137 136-145 mmol/L Potassium Level 4.2 3.5-5.1 mmol/L Chloride Level 105 101-111 mmol/L Carbon Dioxide Level 23 21-32 mmol/L Blood Urea Nitrogen 25 H 7-18 mg/dL Creatinine 1.2 0.5-1.3 mg/dL Glomerular Filtration Rate Calc 73 >90 mL/min Random Glucose 185 H 70-105 mg/dL Total Calcium 8.6 8.5-10.1 mg/dL Triglycerides Level 91 30-200 mg/dL Cholesterol Level 82 <200 mg/dL LDL Cholesterol 35 0-99 mg/dL HDL Cholesterol 39 29-71 mg/dL Test 03/21/25 22:25 Range/Units Vancomycin Level Trough 17.1 10.0-20.0 UG/ML DIAGNOSTICS / RADIOLOGY: PATIENT: JOSE DOTY MR#: [id number] : 1970 SEX: M AGE: 54 LOCATION: [facility] ORDER 19 STATUS: ADM IN [facility] REPORT#: [id number] SERVICE 18 REASON: osteomyelitis ORDERING PHYSICIAN: OFELIA CASTILLO DPM PROCEDURE: FT RT WO - MR FOOT RIGHT WO EXAM: MR RIGHT LOWER EXTREMITY WITHOUT IV CONTRAST, FOOT HISTORY Osteomyelitis of the right fifth digit TECHNIQUE Multisequence, multiplanar MR imaging of the right foot was performed without intravenous contrast. Sagittal T1 FSE, sagittal T2 fat-suppressed, sagittal STIR, coronal PD fat-suppressed, coronal T1 FSE, coronal STIR, axial T2 fat-suppressed, and axial STIR sequences were obtained. COMPARISON None. FINDINGS LIGAMENTS Medial and lateral collateral ligament complexes of the included foot are intact without thickening, discontinuity, or abnormal signal. The Lisfranc ligament is preserved without edema or widening of the tarsometatarsal joints. TENDONS The visualized Achilles, flexor, extensor, and peroneal tendons are normal in caliber and signal intensity without tear or tenosynovitis. BONES There is diffuse abnormal marrow signal involving the proximal, middle, and distal phalanges of the fifth toe, characterized by T1 hypointensity and T2/STIR hyperintensity, consistent with osteomyelitis. There is mild osteolysis of the involved phalanges without a pathologic fracture or discrete intraosseous abscess. No aggressive osseous lesion is identified elsewhere in the foot. SOFT TISSUES AND MUSCLES There is a dorsal lateral cutaneous ulcer overlying the fifth digit with subjacent soft-tissue edema. Extensive cellulitis and myositis involve the dorsal soft tissues of the forefoot, more pronounced around the fifth digit, without a discrete rim-forming fluid collection to suggest a drainable abscess. The intrinsic foot muscles otherwise show preserved bulk without focal mass. JOINTS AND FLUID No significant joint effusion is present within the visualized interphalangeal or metatarsophalangeal joints. No septic arthritis is demonstrated. NEUROVASCULAR STRUCTURES The visualized neurovascular bundles are grossly unremarkable in course and caliber, within the limits of this examination. PLANTAR FASCIA, SINUS TARSI, AND TARSAL TUNNEL The plantar fascia, sinus tarsi, and tarsal tunnel are unremarkable. IMPRESSION MR findings consistent with osteomyelitis involving the proximal, middle, and distal phalanges of the right fifth toe, with overlying dorsolateral cutaneous ulceration and extensive dorsal cellulitis and myositis of the forefoot; no discrete drainable soft-tissue or intraosseous abscess identified. /[place] DICTATED BY: DOROTEO HEBERT Jr., MD DATE: 03/22/252105 PATIENT: JOSE DOTY MR#: [id number] : 1970 SEX: M AGE: 54 LOCATION: [facility] ORDER 19 STATUS: ADM IN REPORT#: [id number] SERVICE 18 REASON: osteomyelitis ORDERING PHYSICIAN: OFELIA CASTILLO DPM PROCEDURE: FT LT WO - MR FOOT LEFT WO EXAM: MR LEFT LOWER EXTREMITY WITHOUT IV CONTRAST, FOOT HISTORY Left foot osteomyelitis. TECHNIQUE Multisequence, multiplanar MR imaging of the left foot was performed without intravenous contrast, including sagittal, coronal, and axial T1- and T2-weighted fat-suppressed and STIR sequences. COMPARISON None. FINDINGS LIGAMENTS The medial and lateral collateral ligament complexes and the Lisfranc ligament are intact without thickening, discontinuity, or abnormal signal. TENDONS The Achilles, flexor, extensor, and peroneal tendons are normal in caliber and signal, without tear or tenosynovitis. BONES There is abnormal marrow signal within the distal phalanx of the left second toe, with T1 hypointensity and T2/STIR hyperintensity, consistent with osteomyelitis. No acute fracture or aggressive osseous lesion is identified elsewhere in the visualized foot. MUSCLES AND SOFT TISSUES There is overlying dorsal soft-tissue swelling and a cutaneous defect adjacent to the distal phalanx of the second toe. Diffuse soft-tissue edema consistent with cellulitis involves the dorsal aspect of the forefoot, more pronounced around the affected digit. No discrete rim-forming fluid collection is demonstrated to suggest a drainable abscess. The intrinsic foot muscles otherwise demonstrate preserved bulk without focal mass. JOINTS AND FLUID No significant joint effusion or imaging evidence of septic arthritis is identified in the visualized interphalangeal or metatarsophalangeal joints. SINUS TARSI, TARSAL TUNNEL, AND PLANTAR FASCIA The sinus tarsi, tarsal tunnel, and plantar fascia are unremarkable. CARTILAGE The visualized articular cartilage appears preserved without focal defect. IMPRESSION MR findings consistent with osteomyelitis of the distal phalanx of the left second toe with overlying dorsal cutaneous defect and adjacent soft-tissue swelling, and associated dorsal forefoot cellulitis; no discrete drainable abscess. /[place] DICTATED BY: DOROTEO HEBERT Jr., MD DATE: 03/22/252103 ASSESSMENT: Left foot 2nd toe wound and osteomyelitis. Right foot 5th toe Wound with methicillin susceptible Staphylococcus aureus in fection and osteomyelitis. Urinary tract infection. Diabetes mellitus. PLAN: Discontinue Zosyn. Start Ancef 2 g IV every [address] PICC line. Case management evaluation for referral to [facility] for outpatient IV antibiotics for 6 weeks. Prescription was written. Continue pain management. Continue wound care as recommended by [employer]. This case was reviewed and discussed with my supervising physician Dr. Son and the above assessment and plan was formulated and agreed upon. ATTESTATION BY PHYSICIAN I have seen and examined the patient. I reviewed the documentation, medical decision making, and treatment plan as noted by the mid-level provider above. I agree with the findings and plan of care. ROBERT SON MD, [facility] Mar 23, 2025 12:23
--- NOTE | 2025-03-23 14:05 | HMCIMG ---
EXAM: CR Chest, 2 View. CLINICAL HISTORY: PICC LINE PLACEMENT COMPARISON: None provided. FINDINGS: Right PICC terminates overlying the SVC. LUNGS: The lungs show no infiltrate or other acute finding. PLEURAL SPACES: No pleural effusion or pneumothorax. MEDIASTINUM: Cardiac size and mediastinal contours within normal limits. BONES: No aggressive appearing osseous lesion seen. IMPRESSION: No acute cardiopulmonary pathology is evident. /[place]
--- NOTE | 2025-03-23 14:24 | NUR ---
WOUND CARE RECOMMENDATIONS CONTACTED DR. CASTILLO FOR D/C WOUND CARE RECOMMENDATIONS. PER DR. CASTILLO, HE WILL BE COMING UP AND SPEAK TO PATIENT TO EDUCATE ON WOUND CARE MANAGEMENT.
--- NOTE | 2025-03-23 15:26 | DS ---
Discharge Summary Hospital Course Summary: Patient is a 54-year-old male with a past medical history of diabetes mellitus type 2, hyperlipidemia, hypertension who came in complaining of Wounds on 2nd toe of left foot and the big toe toe of right foot. Per the patient he noticed the wounds on Thursday night, patient did not have any associated pain. He tried some home remedies like peroxide, rubbing alcohol and petroleum and then he wrapped it with gauze. On he went to his primary care physician who inform Dr. Castillo and Dr. Castillo recommended the patient come to the ER. Patient does not have any associated fevers or chills. In the emergency department the CBC was unremarkable, the glucose was at 210 mg/dL, creatinine 1.5, BUN 39, no urinalysis has been collected or sent to lab, bilateral x-rays of bilateral feet show right foot arthritis. Additionally patient did not have any fever, tachycardia, tachypnea are leukocytosis FR he did not meet sepsis criteria. Patient was admitted for bilateral lower extremity wounds. 03/18/2025: Patient was seen in the ER 18 without any family present. Patient was awake alert x3 and in no acute respiratory distress. Patient had delayed capillary refill so we ordered arterial ultrasound of the bilateral lower extremities. Came back normal and his creatinine had improved to 1.3 from 1.5 at time of admission. Urinalysis came back positive so his urine has been sent for culture along with his blood. Patient has been started on Zosyn and vancomycin while we also ordered MRI for bilateral lower extremities. Patient is hyponatremic with sodium at 135, his ESR high at 67. Further treatment is based off on his image findings. 03/19/2025: Patient is seen and evaluated in the room 417. He has no symptoms today. Her vital signs are in the normal range. Her labs are normal except for hemoglobin is 12.7, sodium is 135, BUN is 28, glucose is 185. urine culture grew 10,000 to 50,000 CFU, mixed octavio contamination present. We ordered arterial US and it showed right lower extremity with 2049% stenosis of the proximal superficial femoral artery and distal popliteal artery with distal small-vessel disease evidenced by monophasic dorsalis pedis waveform, left lower extremity with hemodynamically significant 5080% stenosis of the mid superficial femoral artery. So we consulted cardiology and we are waiting for their recommendations. We are awaiting the results of MRI, aerobic and anaerobic cultures. 03/20/2025: Patient is seen and evaluated in the room 417. He has no new complaints. Final urine culture came back negative. Patient's aerobic culture showed staph aureus still waiting on sensitivity. Patient already on Zosyn & vancomycin. Still waiting for the MRI. As the patient is Dr. Castillo's patient we discontinued wound care and consulted him instead. We are still waiting for Cardiology. 03/21/2025: Patient is seen and evaluated in the room 417. He has no new complaints. Patient's wound culture came back positive for Staphylococcus aureus pansensitive except resistant to erythromycin. Continuing the patient on Zosyn and vancomycin. Dr. Castillo saw the patient and recommended MRI which we already ordered, he also changed the patient's wound dressing. ID was consulted who recommended Tdap shot and to continue her current antibiotics. We are still waiting on Cardiology. 03/22/2025: Patient is seen and evaluated in the room 417. He has no new complaints. Patient underwent MRI waiting for reports. Cardiology saw the patient and recommended an abdominal aortogram with bilateral runoff studies to assess his PAD. They also started the patient on routine statin therapy to target LDL less than 55, dual antiplatelet therapy with aspirin plus clopidogrel, venous Doppler bilateral lower extremities. Patient also has a outpatient Lexiscan Cardiolite stress test pending so they ordered it to be performed as an inpatient as he requires continued antibiotic and podiatry care. Patient underwent aorta with runoff CTA, venous Doppler study, Lexiscan stress test. The venous Doppler study showed no evidence of deep venous thrombosis in bilateral lower extremities. It showed a left Gibson's cyst measuring 2.7 x 1.8 x 3.5 cm. The Lexiscan stress test showed Normal pharmacologic nuclear stress test. The aorta with runoff CTA is still pending report. Per Cardiology the aorta with runoff CTA demonstrated adequate blood flow for wound healing and since the nuclear stress test show came back, cardiology recommended to continue atorvastatin 40 mg hs, continued DAPT, asa and plavix daily, Wound care per podiatry, Losartan/hctz and metoprolol for bp control. They also recommended to follow up in clinic in 2 weeks post discharge and with that they signed off. Patient is continued to be on Zosyn and vancomycin. 03/23/2025: Patient is seen and evaluated in room 417. Patient's MRI shows osteomyelitis on distal phalanx of the left second toe and the proximal, middle, and distal phalanges of the right fifth toe. Infectious diseases discontinued Zosyn and started patient on cefazolin 2 g IV every8 hours. A PICC line has been placed and case management been contacted to evaluate for referral to [facility] for outpatient IV antibiotics for 6 weeks. Patient got accepted to [facility] and patient has no new complaints so we are discharging the patient at this time on IV antibiotics and the cardiology medication recommended by the hourly team members. The patient will also get wound care instructions from the american history teacher Dr. Castillo before he leaves. He has been advised to follow up with the specialists after discharge. Manifold Operator(s): Infectious diseases - Dr. Gilliam - Patient was updated with results of the MRI of bilateral feet showing osteomyelitis to both feet. We will discontinue Zosyn and start patient on cefazolin 2 g IV every8 hours. We will place PICC line and have case management evaluate for referral to [facility] for outpatient IV antibiotics for 6 weeks. Prescription was written and patient made aware of this plan. Deliverer Merchandise - Dr. Wade - This gentleman is currently maintained on clopidogrel, Zosyn, losartan with hydrochlorothiazide, baby aspirin, atorvastatin, topiramate, metoprolol, pantoprazole, subcutaneous heparin, insulin, and p.r.n. medications. From the cardiac standpoint, we will not make any additional recommendations. He has had a Lexiscan that was fairly benign. We will be more than happy to evaluate this patient if he desires. Otherwise, we will see him as an outpatient. Follow up in clinic in 2 weeks post discharge Insulation Cupola Charger - Dr. Castillo - The patient is currently receiving IV Zosyn for Infectious Disease. I discussed treatment options with the patient, both conservative and surgical. The patient is deferring any amputation surgery and wants local wound care and IV antibiotics. We will continue with Hydrofera Blue dressings. We will continue with antibiotics per infectious disease. Procedure(s): [place] [address] [place] [id number] IMAGING REPORT Signed PATIENT: JOSE DOTY MR#: [id number] : 1970 SEX: M AGE: 54 LOCATION: [facility] ORDER 09 STATUS: REG ER REPORT#: [id number] SERVICE 08 REASON: r/o osteo left 2nd toe ORDERING PHYSICIAN: BONILLA MASON PAC PROCEDURE: TOES LT - TOE(S) 2+VWS LT EXAM: CR Toes, Left, 3 Views. CLINICAL HISTORY: Rule out osteo left 2nd toe. COMPARISON: None provided. FINDINGS: BONES: No acute fracture or aggressive appearing osseous lesion. JOINTS: No dislocation. Advanced osteoarthritic changes involving tibiotalar and intertarsal joints. Plantar spur. SOFT TISSUES: The soft tissues are unremarkable. IMPRESSION: No acute osseous abnormality. Advanced osteoarthritic changes involving tibiotalar and intertarsal joints. Plantar spur. /[place] DICTATED BY: DOROTEO HEBERT Jr., MD DATE: 03/17/252319 ELECTRONICALLY SIGNED BY: DOROTEO HEBERT Jr., MD DATE: 03/17/252319 [place] [id number] IMAGING REPORT Signed PATIENT: JOSE DOTY MR#: [id number] : 1970 SEX: M AGE: 54 LOCATION: [facility] ORDER 09 STATUS: [facility] REPORT#: [id number] SERVICE 08 REASON: r/o osteo right 5th toe ORDERING PHYSICIAN: BONILLA MASON PAC PROCEDURE: TOES RT - TOE(S) 2+VWS RT EXAM: CR Toes, Right, 3 Views. CLINICAL HISTORY: Rule out osteo right 5th toe COMPARISON: None provided. FINDINGS: BONES: No acute fracture or aggressive appearing osseous lesion. Advanced osteoarthritic changes in the tibiotalar and the intertarsal joints. JOINTS: No dislocation. SOFT TISSUES: The soft tissues are unremarkable. IMPRESSION: Advanced osteoarthritic changes in the tibiotalar and the intertarsal joints. /[place] DICTATED BY: DOROTEO HEBERT Jr., MD DATE: 03/17/252311 ELECTRONICALLY SIGNED BY: DOROTEO HEBERT Jr., MD DATE: 03/17/252311 [place] [address] [place] [address] IMAGING REPORT Signed PATIENT: JOSE DOTY MR#: [id number] : 1970 SEX: M AGE: 54 LOCATION: [facility] ORDER 1355 STATUS: ADM IN [facility] REPORT#: [id number] SERVICE 1351 REASON: PAD ORDERING PHYSICIAN: LINDA HOWARD MD PROCEDURE: ART B LE - US ARTERIAL BILAT LOW EXT DUPL EXAM: Bilateral lower extremity arterial duplex ultrasound HISTORY: Peripheral arterial disease. TECHNIQUE: Duplex Doppler ultrasound evaluation of the bilateral lower extremity arterial system was performed with grayscale imaging, color Doppler, and spectral waveform analysis. Peak systolic velocities were obtained at standard arterial segments. FINDINGS: Right lower extremity: The common femoral artery demonstrates a peak systolic velocity of 140 cm/sec with triphasic waveform. The proximal superficial femoral artery demonstrates a peak systolic velocity of 169 cm/sec with triphasic waveform consistent with 2049% stenosis. The mid superficial femoral artery demonstrates a peak systolic velocity of 196 cm/sec with triphasic waveform. The distal superficial femoral artery demonstrates a peak systolic velocity of 120 cm/sec with triphasic waveform. The proximal popliteal artery demonstrates a peak systolic velocity of 52 cm/sec with triphasic waveform. The distal popliteal artery demonstrates a peak systolic velocity of 163 cm/sec with triphasic waveform consistent with 2049% stenosis. The posterior tibial artery demonstrates a peak systolic velocity of 79 cm/sec with triphasic waveform. The distal anterior tibial artery demonstrates a peak systolic velocity of 94 cm/sec with biphasic waveform. The dorsalis pedis artery demonstrates a peak systolic velocity of 133 cm/sec with monophasic waveform. Left lower extremity: The common femoral artery demonstrates a peak systolic velocity of 184 cm/sec with triphasic waveform. The proximal superficial femoral artery demonstrates a peak systolic velocity of 138 cm/sec with triphasic waveform. The mid superficial femoral artery demonstrates a peak systolic velocity of 206 cm/sec with triphasic waveform consistent with 5080% stenosis. The distal superficial femoral artery demonstrates a peak systolic velocity of 98 cm/sec with triphasic waveform. The proximal popliteal artery demonstrates a peak systolic velocity of 108 cm/sec with triphasic waveform. The distal popliteal artery demonstrates a peak systolic velocity of 145 cm/sec with triphasic waveform. The posterior tibial artery demonstrates a peak systolic velocity of 51 cm/sec with biphasic waveform. The distal anterior tibial artery demonstrates a peak systolic velocity of 67 cm/sec with triphasic waveform. The dorsalis pedis artery demonstrates a peak systolic velocity of 78 cm/sec with triphasic waveform. Additional findings: A left popliteal fossa Bakers cyst is present measuring 5.1 x 5.3 x 1.4 cm. IMPRESSION: * Mild to moderate bilateral peripheral arterial disease. * Right lower extremity with 2049% stenosis of the proximal superficial femoral artery and distal popliteal artery with distal small-vessel disease evidenced by monophasic dorsalis pedis waveform. * Left lower extremity with hemodynamically significant 5080% stenosis of the mid superficial femoral artery. * Incidental left Bakers cyst. RECOMMENDATIONS: Clinical correlation with ankle-brachial index is recommended. In accordance with ACR, SVS, and IAC guidelines, conservative management is appropriate if symptoms are stable. Vascular surgery or endovascular consultation may be considered if symptoms are lifestyle-limiting, progressive, or if HAILEY is significantly abnormal. No emergent intervention is indicated based on duplex findings alone. /[place] DICTATED BY: CARLY MILLER MD DATE: 03/19/25122 ELECTRONICALLY SIGNED BY: CARLY MILLER MD DATE: 03/19/25122 [place] [id number] IMAGING REPORT Signed PATIENT: JOSE DOTY MR#: [id number] : 1970 SEX: M AGE: 54 LOCATION: [facility] ORDER 19 STATUS: ADM IN REPORT#: [id number] SERVICE 2119 REASON: osteomyelitis ORDERING PHYSICIAN: OFELIA CASTILLO DPM PROCEDURE: FT LT WO - MR FOOT LEFT WO EXAM: MR LEFT LOWER EXTREMITY WITHOUT IV CONTRAST, FOOT HISTORY Left foot osteomyelitis. TECHNIQUE Multisequence, multiplanar MR imaging of the left foot was performed without intravenous contrast, including sagittal, coronal, and axial T1- and T2-weighted fat-suppressed and STIR sequences. COMPARISON None. FINDINGS LIGAMENTS The medial and lateral collateral ligament complexes and the Lisfranc ligament are intact without thickening, discontinuity, or abnormal signal. TENDONS The Achilles, flexor, extensor, and peroneal tendons are normal in caliber and signal, without tear or tenosynovitis. BONES There is abnormal marrow signal within the distal phalanx of the left second toe, with T1 hypointensity and T2/STIR hyperintensity, consistent with osteomyelitis. No acute fracture or aggressive osseous lesion is identified elsewhere in the visualized foot. MUSCLES AND SOFT TISSUES There is overlying dorsal soft-tissue swelling and a cutaneous defect adjacent to the distal phalanx of the second toe. Diffuse soft-tissue edema consistent with cellulitis involves the dorsal aspect of the forefoot, more pronounced around the affected digit. No discrete rim-forming fluid collection is demonstrated to suggest a drainable abscess. The intrinsic foot muscles otherwise demonstrate preserved bulk without focal mass. JOINTS AND FLUID No significant joint effusion or imaging evidence of septic arthritis is identified in the visualized interphalangeal or metatarsophalangeal joints. SINUS TARSI, TARSAL TUNNEL, AND PLANTAR FASCIA The sinus tarsi, tarsal tunnel, and plantar fascia are unremarkable. CARTILAGE The visualized articular cartilage appears preserved without focal defect. IMPRESSION MR findings consistent with osteomyelitis of the distal phalanx of the left second toe with overlying dorsal cutaneous defect and adjacent soft-tissue swelling, and associated dorsal forefoot cellulitis; no discrete drainable abscess. /[place] DICTATED BY: DOROTEO HEBERT Jr., MD DATE: 03/22/252103 ELECTRONICALLY SIGNED BY: DOROTEO HEBERT Jr., MD DATE: 03/22/252103 [address] [address] IMAGING REPORT Signed PATIENT: JOSE DOTY MR#: [id number] : 1970 SEX: M AGE: 54 LOCATION: [facility] ORDER 19 STATUS: ADM IN [facility] REPORT#: [id number] SERVICE 18 REASON: osteomyelitis ORDERING PHYSICIAN: OFELIA CASTILLO DPM PROCEDURE: FT RT WO - MR FOOT RIGHT WO EXAM: MR RIGHT LOWER EXTREMITY WITHOUT IV CONTRAST, FOOT HISTORY Osteomyelitis of the right fifth digit TECHNIQUE Multisequence, multiplanar MR imaging of the right foot was performed without intravenous contrast. Sagittal T1 FSE, sagittal T2 fat-suppressed, sagittal STIR, coronal PD fat-suppressed, coronal T1 FSE, coronal STIR, axial T2 fat-suppressed, and axial STIR sequences were obtained. COMPARISON None. FINDINGS LIGAMENTS Medial and lateral collateral ligament complexes of the included foot are intact without thickening, discontinuity, or abnormal signal. The Lisfranc ligament is preserved without edema or widening of the tarsometatarsal joints. TENDONS The visualized Achilles, flexor, extensor, and peroneal tendons are normal in caliber and signal intensity without tear or tenosynovitis. BONES There is diffuse abnormal marrow signal involving the proximal, middle, and distal phalanges of the fifth toe, characterized by T1 hypointensity and T2/STIR hyperintensity, consistent with osteomyelitis. There is mild osteolysis of the involved phalanges without a pathologic fracture or discrete intraosseous abscess. No aggressive osseous lesion is identified elsewhere in the foot. SOFT TISSUES AND MUSCLES There is a dorsal lateral cutaneous ulcer overlying the fifth digit with subjacent soft-tissue edema. Extensive cellulitis and myositis involve the dorsal soft tissues of the forefoot, more pronounced around the fifth digit, without a discrete rim-forming fluid collection to suggest a drainable abscess. The intrinsic foot muscles otherwise show preserved bulk without focal mass. JOINTS AND FLUID No significant joint effusion is present within the visualized interphalangeal or metatarsophalangeal joints. No septic arthritis is demonstrated. NEUROVASCULAR STRUCTURES The visualized neurovascular bundles are grossly unremarkable in course and caliber, within the limits of this examination. PLANTAR FASCIA, SINUS TARSI, AND TARSAL TUNNEL The plantar fascia, sinus tarsi, and tarsal tunnel are unremarkable. IMPRESSION MR findings consistent with osteomyelitis involving the proximal, middle, and distal phalanges of the right fifth toe, with overlying dorsolateral cutaneous ulceration and extensive dorsal cellulitis and myositis of the forefoot; no discrete drainable soft-tissue or intraosseous abscess identified. /[place] DICTATED BY: DOROTEO HEBERT Jr., MD DATE: 03/22/252105 ELECTRONICALLY SIGNED BY: DOROTEO HEBERT Jr., MD DATE: 03/22/252105 [place] [address] IMAGING REPORT Signed PATIENT: JOSE DOTY MR#: [id number] : 1970 SEX: M AGE: 54 LOCATION: [facility] ORDER 1533 STATUS: ADM IN REPORT#: [id number] SERVICE 1510 REASON: EVAL pad ORDERING PHYSICIAN: JUNIOR JUDD ANALYSIS MGR PROCEDURE: CTA ABDAOR - CT ANGIO ABD AORTA W RUNOFF EXAM: CTA Aorta Runoff with IV contrast CLINICAL HISTORY: Evaluation of the peripheral arterial disease. TECHNIQUE: Thin collimated axial CTA images of the abdomen, pelvis, and bilateral lower extremities were obtained, with sagittal and coronal reformatted images also submitted. A CT scan is done according to ALARA (As Low As Reasonably Achievable). CONTRAST: Yes COMPARISON: Prior arterial Doppler dated March 18, 2025. FINDINGS: Abdominal aorta: Unremarkable abdominal aorta, celiac trunk, superior mesenteric artery, inferior mesenteric artery, and bilateral renal arteries. Aortic Bifurcation: Unremarkable. Bilateral Common, origins of the internal, and external Iliac arteries: Unremarkable. Bilateral Common femoral, the origin of the deep femoral, and Superficial femoral arteries: Unremarkable. Bilateral Popliteal arteries: Unremarkable. Tibio-peroneal trifurcation: Unremarkable. Anterior Tibial, Posterior Tibial, and Peroneal arteries: Diffuse narrowing of the right peroneal artery in its mid and distal portions, with more than 40-50% narrowing. Approximately 20-30% narrowing of the left posterior tibial artery and 30-40% narrowing of the left peroneal artery in its mid to distal one third. Dorsalis Pedis artery: Unremarkable. Normal 3-vessel flow to the foot. Osseous and Soft tissue structures: No acute abnormality, moderate degenerative changes in the sacroiliac, superolateral hip joint, and multilevel severe degenerative facet arthropathy in the lumbar spine. Moderate degenerative changes in the parietal sacroiliac and superolateral hip joint. Moderate to severe tricompartmental osteoarthritic changes. Mild bilateral knee joint effusion. Unruptured Gibson's cyst in the left popliteal fossa. Moderate degenerative changes in the tibiotalar, talofibular, intertarsal, tarsometatarsal, metatarsophalangeal, and interphalangeal joints. Other findings: No acute intra-abdominal pathology. Small omental fat containing right inguinal hernia. The remainder of the abdomen and pelvis appear unremarkable. IMPRESSION: Subtle atherosclerotic calcification of the bilateral common femoral, superficial femoral, and popliteal artery. Normal contrast opacification of the abdominal aorta and its branches, infrarenal aorta, bilateral common iliac, internal and external iliac artery, common femoral profunda femoris, superficial femoral, popliteal artery, bilateral anterior tibial arteries, and dorsalis pedis artery. Diffuse narrowing of the right peroneal artery in its mid and distal portions, with more than 40-50% narrowing. Approximately 20-30% narrowing of the left posterior tibial artery and 30-40% narrowing of the left peroneal artery in its mid to distal one third. Moderate degenerative changes in the bilateral sacroiliac and bilateral hip joints. Moderate to severe degenerative changes in the bilateral knee joint and moderate changes in the tibiotalar and talofibular intertarsal joints. No acute osseous abnormality. Compared with the prior study, which demonstrated multilevel atherosclerotic calcification of the lower-limb arteries, no hemodynamically significant narrowing or occlusion was identified. Normal contrast opacification of the right superficial femoral artery and triple-vessel blood flow to the foot. /[place] DICTATED BY: GURJIT IQBAL MD DATE: 03/23/25902 ELECTRONICALLY SIGNED BY: GURJIT IQBAL MD DATE: 03/23/[address] [address] IMAGING REPORT Signed PATIENT: JOSE DOTY MR#: [id number] : 1970 SEX: M AGE: 54 LOCATION: [facility] ORDER 32 STATUS: ADM IN [facility] REPORT#: [id number] SERVICE 29 REASON: dvt ORDERING PHYSICIAN: DESMOND MCGREGOR MD PROCEDURE: VENOUS FIDENCIO - US VENOUS DOPPLER BILATERAL BILATERAL LOWER EXTREMITY VENOUS DOPPLER CLINICAL HISTORY: DVT. TECHNIQUE: Duplex ultrasound evaluation of the bilateral lower extremity deep venous system was performed using grayscale imaging, compression maneuvers, color Doppler, and spectral Doppler analysis. COMPARISON: None. FINDINGS: Right Lower Extremity: The common femoral vein, great saphenous vein, profundal femoral vein, superficial femoral vein, popliteal vein are patent, demonstrate normal compressibility, and show normal color flow and spectral Doppler waveforms. The posterior tibial vein is patent and demonstrate normal compressibility, and show normal color flow and spectral Doppler waveforms. No intraluminal thrombus is identified. Normal respiratory variation and augmentation are noted. Left Lower Extremity: The common femoral vein, great saphenous vein, profundal femoral vein, superficial femoral vein and popliteal vein, are patent demonstrate normal compressibility, and show normal color flow and spectral Doppler waveforms. The posterior tibial vein is patent and demonstrate normal compressibility, and show normal color flow and spectral Doppler waveforms. No intraluminal thrombus is identified. Normal respiratory variation and augmentation are noted. A well-defined anechoic fluid collection is seen in the left popliteal fossa, measuring 2.7 x 1.8 x 3.5 cm, consistent with a Bakers cyst. IMPRESSION: 1. No evidence of deep venous thrombosis in the bilateral lower extremities. 2. Left Bakers cyst, measuring 2.7 x 1.8 x 3.5 cm. /[place] DICTATED BY: CARLY MILLER MD DATE: 03/22/25358 ELECTRONICALLY SIGNED BY: CARLY MILLER MD DATE: 03/22/[address] [address] IMAGING REPORT Signed PATIENT: JOSE DOTY MR#: [id number] : 1970 SEX: M AGE: 54 LOCATION: [facility] ORDER 1633 STATUS: ADM IN REPORT#: [id number] SERVICE 0600 REASON: dominguez ORDERING PHYSICIAN: DESMOND MCGREGOR MD PROCEDURE: CARD BHARATI - NM LEXISCAN CARDIOLITE APPROVED REPORT Height: 5 ft 5in Weight: 280 lbs TEST INDICATIONS DOMINGUEZ The imaging protocol used to acquire images was Rest Tc-99m/stress Tc-99m 1 day Consent: The procedure was explained and understood by the patient. Informerd consent was witnessed by Mary Adrian RN First, low dose rest was performed then high dose stress. RESTING DATA: The resting ekg shows: NSR Rest SPECT myocardial perfusion imaging was performed in supine position minutes following the intravenous injection of 11 mCi of Tc-99 Sestamibi. Time of rest injection: 06:38: Date: 03/22/2025 PHARMACOLOGIC STRESS: Pharmacologic stress test was performed by injecting regadenoson 0.4 mg IV push followed by the intravenous injection of 30 mCi of Tc-99 Sestamibi. Time of stress injection: 08:20: Date: 03/22/2025 Heart Rate at time of stress injection: 57 bpm. Gated Stress SPECT was performed 60 minutes after stress injection. The images were gated to evaluate regional wall motion and calculate left ventricular ejection fraction. STRESS DETAILS Reason for Termination: Infusion complete Stress Symptoms: Dyspnea, Chest pressure Max HR Achieved: 76 bpm % of APMHR Achieved: 53 Max Blood Pressure: 115/58 mmHg Stress ECG: NSR Study quality was good. Lung uptake was Normal. Artifact: No artifact IMPRESSION Normal pharmacologic nuclear stress test. Conclusion Normal perfusion. TID 1.02. LVEF 62% DICTATED BY: MICAH PRIETO MD DATE: 03/22/25 0719 ELECTRONICALLY SIGNED BY: MICAH PRIETO MD DATE: 03/22/[id number] [place] [id number] IMAGING REPORT Signed PATIENT: JOSE DOTY MR#: [id number] : 1970 SEX: M AGE: 54 LOCATION: 4CH ORDER 1230 STATUS: ADM IN REPORT#: [id number] SERVICE 1229 REASON: PICC LINE PLACEMENT ORDERING PHYSICIAN: ROBERT GILLIAM MD PROCEDURE: CXR1VW - CHEST 1VW EXAM: CR Chest, 2 View. CLINICAL HISTORY: PICC LINE PLACEMENT COMPARISON: None provided. FINDINGS: Right PICC terminates overlying the SVC. LUNGS: The lungs show no infiltrate or other acute finding. PLEURAL SPACES: No pleural effusion or pneumothorax. MEDIASTINUM: Cardiac size and mediastinal contours within normal limits. BONES: No aggressive appearing osseous lesion seen. IMPRESSION: No acute cardiopulmonary pathology is evident. /[place] DICTATED BY: DOROTEO HEBERT Jr., MD DATE: 03/23/251503 ELECTRONICALLY SIGNED BY: DOROTEO HEBERT Jr., MD DATE: 03/23/251503 Assessment/Plan: ASSESSMENT: Diabetic foot ulcers to bilateral feet, left foot 2nd toe, right foot big toe, POA Stenosis of the lower limb arteries, POA Uncontrolled Diabetes mellitius type2, POA CKD stage IIIB, POA UTI, POA Right foot arthritis, POA] Admission Date: 03/17/2025 Discharge Date: 03/23/2025 Disposition: Home Condition: Stable Activity: As tolerated Home medications: Continued Discharge medications: Aspirin and Plavix, statins, cefazolin 2 g IV for 6 weeks Follow-up appointment: Follow up with your primary care provider within 2-3 days of discharge Follow up with Infectious Disease as scheduled Follow up with [facility] team [facility] clinic in 1-2 weeks post discharge We reinforced the importance of medication adherence and follow-up appointments. Discharge Instructions: Keep the PICC line clean and dry at all times Do not pull, twist, or kink the tubing Do not use the PICC arm for heavy lifting Not submerge the PICC in water (no baths, pools, hot tubs). Shower only with protective covering Please follow the wound care instructions given by Dr. Castillo Keep wounds clean and dry between dressing changes Activity as tolerated Avoid strenuous activity or heavy lifting, especially with the PICC arm Complete the full 6 weeks course of IV antibiotics exactly as prescribed. Do not miss doses. Missing doses can lead to treatment failure or recurrence Antibiotics will be given through your PICC line at the infusion center Follow up with your primary care provider within 2-3 days of discharge >>Follow up with Infectious Disease as scheduled PATIENT ACCEPTED TO [facility] 03/24/25 @ 11AM FOR 6 WEEKS [address] [facility] [id number] Follow up with [facility] in 1-2 weeks post discharge [facility] [address], [place], [place] [phone] PLEASE CALL AT YOUR EARLIEST CONVENIENCE FOR AN APPOINTMENT DR. CASTILLO [address] [id number] PLEASE CALL FOR FOLLOW UP APPOINTMENT Home Medications: Active Scripts Clopidogrel Bisulfate (Plavix) 75 Mg Tablet, 75 MG PO DAILY, #30 TAB Prov:ARI KNUTSON MD 03/23/25 Reported Medications Fluticasone/Umeclidin/Vilanter (Trelegy Ellipta 100-62.5-25) 100-62.5 Blst.w.dev, 1 EACH IH DAILY PRN for PRN 03/20/25 Fluticasone Propionate (Fluticasone Propionate) 50 Mcg/Actuation [place].susp, 2 SPRAY NS DAILY, GM 0 Refills 03/20/25 Esomeprazole Magnesium (Esomeprazole Magnesium) 40 Mg Capsule.dr, 1 CAP PO ACBKFST for 30 Days, #30 CAP 0 Refills 03/20/25 Rosuvastatin Calcium (Rosuvastatin Calcium) 10 Mg Tablet, 20 MG PO DAILY, TAB 03/18/25 Topiramate (Topiramate) 100 Mg Tablet, 100 MG PO BID, TAB 03/18/25 Dapagliflozin Propanediol (Farxiga) 10 Mg Tablet, 10 MG PO DAILY, TAB 03/18/25 Aspirin (ASPIRIN 81MG CHEW TAB) 81 Mg Tab.chew, 81 MG PO DAILY, TAB.CHEW 03/18/25 Losartan/Hydrochlorothiazide (Losartan-Hctz 100-25 mg Tab) 100 Mg-25 Mg Tablet, 1 EACH PO DAILY, TAB 03/18/25 Metoprolol Tartrate (Metoprolol Tartrate) 50 Mg Tablet, 50 MG PO BID, TAB 03/18/25 Metformin HCl (Metformin HCl) 1,000 Mg Tablet, 1000 MG PO BIDMEALS, TAB 02/13/18 New Medications: Clopidogrel Bisulfate (Plavix) 75 Mg Tablet 75 MG PO DAILY, #30 TAB Continued Medications: Aspirin (Aspirin 81MG Chew Tab) 81 Mg Tab.chew 81 MG PO DAILY, TAB.CHEW Dapagliflozin Propanediol (Farxiga) 10 Mg Tablet 10 MG PO DAILY, TAB Esomeprazole Magnesium (Esomeprazole Magnesium) 40 Mg Capsule.dr 1 CAP PO ACBKFST for 30 Days, #30 CAP 0 Refills Fluticasone Propionate (Fluticasone Propionate) 50 Mcg/Actuation [place].susp 2 SPRAY NS DAILY, GM 0 Refills Fluticasone/Umeclidin/Vilanter (Trelegy Ellipta 100-62.5-25) 100-62.5 Blst.w.dev 1 EACH IH DAILY PRN for PRN Losartan/Hydrochlorothiazide (Losartan-Hctz 100-25 mg Tab) 100 Mg-25 Mg Tablet 1 EACH PO DAILY, TAB Metformin HCl (Metformin HCl) 1,000 Mg Tablet 1000 MG PO BIDMEALS, TAB Metoprolol Tartrate (Metoprolol Tartrate) 50 Mg Tablet 50 MG PO BID, TAB Rosuvastatin Calcium (Rosuvastatin Calcium) 10 Mg Tablet 20 MG PO DAILY, TAB Topiramate (Topiramate) 100 Mg Tablet 100 MG PO BID, TAB Time spent arranging discharge: 31-60 minutes ATTESTATION BY PHYSICIAN I have seen and examined the patient. I reviewed the documentation, medical decision making, and treatment plan as noted by the resident physician above. I agree with the findings and plan of care. Leroy Urbano IV, MD, ABHINAV MD Mar 23, 2025 15:26
[2025-03-23 16:00] VITALS: BP 149/73; PULSE 67; RESP 18; TEMP 97.9
[2025-03-23] MEDS ORDERED: CLOP-31 PO (16:28)
--- NOTE | 2025-03-23 17:21 | NUR ---
DR. JONATHAN CASTILLO ROUNDED AT BEDSIDE. STATED INSTRUCTED PATIENT TO USE BETADINE DAILY TO WOUND AND CONTINUE ANTIBIOTIC REGIMEN. SUPPLIES WERE GIVEN TO PATIENT PER DR. CASTILLO PRIOR TO DISCHARGE AND WILL CALL WITH APPOINTMENT IN AM. PATIENT VOICED UNDERSTANDING TO ALL INSTRUCTIONS GIVEN. NO QUESTIONS AT THIS TIME.
--- NOTE | 2025-03-23 18:04 | NUR ---
DISCHARGE DISCHARGE ORDERS OBTAINED FOR PATIENT TO BE DISCHARGED HOME. DISCHARGE INSTRUCTIONS AND DOCUMENTATION GIVEN TO PATIENT AT BEDSIDE. VOICED UNDERSTANDING. IV DISCONTINUED BY SOLOMON, ELECTRONIC NEWS GATHERING CAMERA PERSON, CATHETER INTACT, NO S/S OF INFECTION NOTED TO SITE. PATIENT TOLERATED WELL. PICC LINE IN PLACE. DRESSING DRY AND INTACT. BANDS REMOVED PRIOR TO DISCHARGE. PENDING TRANSPORTATION. SUPPLIES GIVEN FOR WOUND CARE PER DR. CASTILLO. PATIENT DENIED ANY QUESTIONS REGARDING WOUND CARE PRIOR TO DISCHARGE.
--- NOTE | 2025-03-24 06:05 | PN ---
SUBJECTIVE: The patient is a 54-year-old male followed up for ulcer osteomyelitis to the distal middle and proximal phalanx of the right fifth toe, ulcer with osteomyelitis of the distal phalanx of the left second toe. The patient is requesting long-term IV antibiotics and local wound care. REVIEW OF SYSTEMS: CONSTITUTIONAL: No chills, no fevers, no night sweats. GASTROINTESTINAL: No nausea or vomiting. No diarrhea. HEENT: No problems with eyes, ears, nose, or throat. CARDIOVASCULAR: No current chest pain. PULMONARY: No shortness of breath. GENITOURINARY: No dysuria. GASTROINTESTINAL: No dysphagia. MUSCULOSKELETAL: Osteomyelitis, fifth digit on the right, osteomyelitis, second digit on the left. INTEGUMENTARY: Ulcerations at the distal tip of the left second toe, ulcer to the dorsal and lateral aspect of the right fifth toe. VITAL SIGNS: T-max 98.2, blood pressure 120/63, respirations 18. White count 8.1, hemoglobin 12.9 and 38.1, glucose 224. The patient's cultures, Staph aureus, non-MRSA, for which the patient is currently receiving IV cefazolin. His examination today shows left second toe ulcer is clean and granulated 5 mm x 5 mm x 1 mm ulcer to the right fifth toe, 30 mm x 20 mm x 1-2 mm mixed granular fibrotic base. There is edema, erythema, associated with cellulitis. ASSESSMENT: Ulcer left second toe distal phalanx osteomyelitis. Ulcer to the right fifth toe distal middle and proximal phalanx osteomyelitis. PLAN: He is on IV cefazolin per Infectious Disease. He is receiving Hydrofera Blue dressings. We will continue with antibiotics and offloading measures. Follow the patient up as an outpatient. Continue to follow the patient closely while inhouse. TID: [id number] RECEIPT: [id number]
== END 2025-03-23 18:45 | disposition home or self-care (01) | DRG 264 ==
LOC: EDH 18:02 → EDHIP 22:11 → 4CH 03-18 17:11
PROVIDERS: ADMIT Internal Medicine; ATTEND Internal Medicine
PROC: 0JBQ0ZZ Excision of Right Foot Subcutaneous Tissue and Fascia, Open Approach (ICD-10-PCS; principal; 2025-03-20)
PROC: 3E073KZ Introduction of Other Diagnostic Substance into Coronary Artery, Percutaneous Approach (ICD-10-PCS; 2025-03-22)
PROC: 4A02XM4 Measurement of Cardiac Total Activity, External Approach (ICD-10-PCS; 2025-03-22)
PROC: 02HV33Z Insertion of Infusion Device into Superior Vena Cava, Percutaneous Approach (ICD-10-PCS; 2025-03-22)
PROC: B548ZZA Ultrasonography of Superior Vena Cava, Guidance (ICD-10-PCS; 2025-03-22)
DX: E11.52 Type 2 diabetes mellitus with diabetic peripheral angiopathy with gangrene (principal); E87.1 Hypo-osmolality and hyponatremia; M86.8X7 Other osteomyelitis, ankle and foot; E11.621 Type 2 diabetes mellitus with foot ulcer; B35.1 Tinea unguium; N39.0 Urinary tract infection, site not specified; B95.61 Methicillin susceptible Staphylococcus aureus infection as the cause of diseases classified elsewhere; E66.01 Morbid (severe) obesity due to excess calories; I12.9 Hypertensive chronic kidney disease with stage 1 through stage 4 chronic kidney disease, or unspecified chronic kidney disease; N18.32 Chronic kidney disease, stage 3b; Z68.42 Body mass index [BMI] 45.0-49.9, adult; E11.22 Type 2 diabetes mellitus with diabetic chronic kidney disease; E11.42 Type 2 diabetes mellitus with diabetic polyneuropathy; E11.69 Type 2 diabetes mellitus with other specified complication; L97.519 Non-pressure chronic ulcer of other part of right foot with unspecified severity; L97.529 Non-pressure chronic ulcer of other part of left foot with unspecified severity; M19.071 Primary osteoarthritis, right ankle and foot; E11.65 Type 2 diabetes mellitus with hyperglycemia; I87.2 Venous insufficiency (chronic) (peripheral); L60.0 Ingrowing nail; M60.9 Myositis, unspecified; E78.5 Hyperlipidemia, unspecified; L84 Corns and callosities; S91.205A Unspecified open wound of left lesser toe(s) with damage to nail, initial encounter; E11.610 Type 2 diabetes mellitus with diabetic neuropathic arthropathy; Z80.9 Family history of malignant neoplasm, unspecified; Z82.49 Family history of ischemic heart disease and other diseases of the circulatory system; Z83.3 Family history of diabetes mellitus; Z86.718 Personal history of other venous thrombosis and embolism
CPT/HCPCS: 36415; 36569; 71045; 73660; 73718; 75635; 78452; 80048; 80053; 80061; 80202; 81001; 82948; 83036; 83605; 83735; 84100; 84145; 85025; 85027; 85610; 85651; 85730; 87070; 87076; 87086; 87186; 90714; 93017; 93925; 93970; 99285; A9500; C1894; G0378; J1644; J1650; J1815; J2543; J2785; Q9967; C1751; J0690; J3375